=== PATIENT | female | born 1960 | race Caucasian/White ===

== ENCOUNTER → 2018-01-18 11:04 | Outpatient (CLI) | payer OTHER, SELFPAY ==
[2018-01-18 11:32] LABS: Hematocrit 44.5 % (37-47); Hemoglobin 14.1 g/dl (12.0-15.0); Mean Corp Hgb Conc 31.7 g/gl (32-36); Mean Corpuscular Hgb 29.4 pg (27.0-32.0); Mean Corpuscular Volume 92.7 fL (81-99); Mean Platelet Vol. 9.2 fl (6.2-12.0); Platelet Count 327 K/mm3 (150-450); RBC Distribution Width CV 13.2 % (11.6-14.6); RBC Distribution Width SD 44.1 fl (35.1-43.9)
[2018-01-18 11:33] LABS: Scan Indicated on CBC? Y/N NO
--- NOTE | 2018-01-18 11:51 | EKG12_ITS ---
Test Reason : PRE-OP Blood Pressure : / mmHG Vent. Rate : 064 BPM Atrial Rate : 064 BPM P-R Int : 164 ms QRS Dur : 094 ms QT Int : 400 ms P-R-T Axes : 043 066 041 degrees QTc Int : 412 ms Normal sinus rhythm Normal ECG Confirmed by GI PARRY ([id number]), production editor ROBB IZAGUIRRE ([id number]) on 01/20/2018 1:03:54 PM Referred By: Reinier Green Confirmed By:GI PARRY
[2018-01-18 12:00] LABS: Anion Gap 5 (5-15); BUN 14 mg/dL (7-18); BUN/Creat Ratio 17.1 RATIO (10-20); Calcium,Total 9.2 mg/dL (8.5-10.1); Chloride 105 mmol/L (98-107); Creatinine, Serum 0.82 mg/dL (0.55-1.02); EST Glomerular Filtration Rate 76 mL/min (>60); Est Glom Filt Rate - Afr Amer 92 mL/min (>60); Glucose 91 mg/dL (74-106); Potassium 4.2 mmol/L (3.5-5.1); Sodium Level 140 mmol/L (136-145)
== END ==
PROVIDERS: Family Provider Family Medicine; PCP Family Medicine; Visit Provider Orthopaedic Surgery
DX: Z01.810 Encounter for preprocedural cardiovascular examination (principal); Z01.818 Encounter for other preprocedural examination
CPT/HCPCS: 36415; 80048; 85027; 93005

== ENCOUNTER 2019-01-19 08:41 | Emergency (ER) | payer SELFPAY ==
[2019-01-19 08:42] VITALS: BP 185/99; PULSE 89; RESP 18; TEMP 37.1; O2SAT 98; BMI 31.6
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
[2019-01-19 09:13] LABS: Absolute Lymphocyte Count 1.66 X10^3/ul (0.83-4.51); Absolute Neutrophil Count 12.4 X10^3/uL (2.0-7.7); Basophil# 0.03 X10^3/uL; Basophil% 0.2 % (0-1); Eosinophil# 0.59 X10^3/uL; Eosinophils% 3.8 % (0-5); Hematocrit 41.1 % (37-47); Hemoglobin 12.7 g/dl (12.0-15.0); Lymphocyte # 1.66 X10^3/ul (4.0); Lymphocyte % 10.7 % (19-41); Mean Corp Hgb Conc 30.9 g/gl (32-36); Mean Corpuscular Volume 90.7 fL (81-99); Mean Platelet Vol. 8.5 fl (6.2-12.0); Monocyte# 0.88 X10^3/uL; Monocyte% 5.6 % (0-10); Neutrophil # 12.36 X10^3/uL (2.7-7.7); Neutrophil % 79.3 % (47-70); POSITIVE COUNT NO; POSITIVE DIFFERENTIAL NO; POSITIVE MORPHOLOGY NO; Platelet Count 376 K/mm3 (150-450); RBC Distribution Width CV 13.4 % (11.6-14.6); RBC Distribution Width SD 44.6 fl (35.1-43.9); Red Blood Count 4.53 M/mm3 (4.2-5.4); White Blood Count 15.6 K/mm3 (4.4-11.0)
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
[2019-01-19 09:29] LABS: ALB/GLOB Ratio 0.8 RATIO (0.9-2.4); AST(SGOT) 15 U/L (15-37); Alanine Aminotransfer ALT/SGPT 16 U/L (13-56); Albumin, Serum 3.3 g/dL (3.2-5.0); Alkaline Phosphatase 142 U/L (45-117); Anion Gap 7 (5-15); BUN 17 mg/dL (7-18); BUN/Creat Ratio 21.5 RATIO (10-20); Calcium,Total 8.8 mg/dL (8.5-10.1); Chloride 108 mmol/L (98-107); Creatinine, Serum 0.79 mg/dL (0.55-1.02); EST Glomerular Filtration Rate 79 mL/min (>60); Est Glom Filt Rate - Afr Amer 95 mL/min (>60); Estimated Creatinine Clearance 76.39 ml/min; Globulin 4.2 g/dL (2.2-4.2); Glucose 105 mg/dL (74-106); Potassium 3.7 mmol/L (3.5-5.1); Protein, Total 7.5 g/dL (6.4-8.2); Sodium Level 142 mmol/L (136-145)
--- NOTE | 2019-01-19 10:55 | NURSING ---
FACESHEET FAXED TO [facility]
[2019-01-19] MEDS: Morphine 4 MG/ML Syringe IV (11:10)
[2019-01-19 11:18] VITALS: BP 204/99; PULSE 101; RESP 22; O2SAT 96
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
[2019-01-19 15:26] VITALS: PULSE 98; RESP 18; O2SAT 98
== END 2019-01-19 15:27 | disposition home or self-care (01) ==
PROVIDERS: Emergency Provider Emergency Medicine; Family Provider Internal Medicine; PCP Internal Medicine
DX: S52.242A Displaced spiral fracture of shaft of ulna, left arm, initial encounter for closed fracture (principal); S70.12XA Contusion of left thigh, initial encounter; S00.91XA Abrasion of unspecified part of head, initial encounter; S60.511A Abrasion of right hand, initial encounter; V49.40XA Driver injured in collision with unspecified motor vehicles in traffic accident, initial encounter; Y93.9 Activity, unspecified; Y92.9 Unspecified place or not applicable; Y99.9 Unspecified external cause status
CPT/HCPCS: 29105; 70450; 72125; 73110; 73130; 73552; 80053; 85025; 96374; 99285; A4216

== ENCOUNTER 2019-01-27 05:33 | Day surgery (SDC) | payer SELFPAY ==
[2019-01-26 14:46] VITALS: BMI 31.6
[2019-01-27] VITALS (7 sets, daily range): BP systolic 168–184; BP diastolic 87–101; PULSE 78–99; RESP 16; TEMP 36.4–37; O2SAT 93–100; BMI 32.8
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
[2019-01-27] MEDS: Cefazolin 2 GM in 0.9% Normal Saline 100 ML IV (07:29)
[2019-01-27] MEDS: Bupiv/Epi 0.5% Mpf 30 ML Vial (08:44)
--- NOTE | 2019-01-27 09:09 | DCINST_ITS ---
Discharge Diet: No Restrictions Keep extremity elevated above heart level: Operative Extremity Call your doctor if you observe: Shortness of breath, Chest pain Additional Instructions: Ice and elevate operative extremity for the next 72 hours. Encourage finger range of motion and elbow range of motion. Do not lift more than 1/2 pound with operative extremity. Dressing on clean and dry. Follow-up with Dr. Marroquin in 2 weeks call with any concerns. Allergies/Adverse Reactions: Allergies neomycin Allergy (Verified 01/26/19 11:29) Swelling shellfish derived Allergy (Verified 01/26/19 11:29) Anaphylaxis Sulfa (Sulfonamide Antibiotics) Allergy (Verified 01/26/19 11:29) Anaphylaxis tetracycline [From Sumycin] Allergy (Verified 01/26/19 11:29) Swelling iodine Adverse Reaction (Verified 01/26/19 11:29) Other BLISTERS mycin Allergy (Uncoded 01/26/19 11:29) Anaphylaxis Medications to take at Discharge Ibuprofen 800 mg PO PRN PRN 01/26/19 Primary Care Physician: Shruthi Castañeda MD [Primary Care Provider] - Test Results: Test results from this visit will be discussed in further detail at your follow- up appointment, if applicable. Please Follow Up With: Frantz Marroquin DO - 2Weeks
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
== END 2019-01-27 11:52 | disposition home or self-care (01) ==
LOC: SDC 05:37 → AC 05:37
PROVIDERS: Family Provider Internal Medicine; PCP Internal Medicine; Referring Provider Orthopaedic Surgery; Visit Provider Orthopaedic Surgery
PROC: (CPT 25545; principal; 2019-01-27 07:15)
DX: S52.242A Displaced spiral fracture of shaft of ulna, left arm, initial encounter for closed fracture (principal); V49.40XA Driver injured in collision with unspecified motor vehicles in traffic accident, initial encounter; Y93.9 Activity, unspecified; Y92.9 Unspecified place or not applicable; Y99.9 Unspecified external cause status; Z78.0 Asymptomatic menopausal state; Z87.01 Personal history of pneumonia (recurrent)
CPT/HCPCS: 25545; 73100; 76000; 93005; C1713; J7120; J2405

== ENCOUNTER → 2019-03-23 15:59 | Outpatient (CLI) | payer SELFPAY ==
[2019-02-11 09:23] VITALS: BMI 32.8
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
== END ==
PROVIDERS: Family Provider Internal Medicine; PCP Internal Medicine; Referring Provider Orthopaedic Surgery; Visit Provider Orthopaedic Surgery
DX: S52.202A Unspecified fracture of shaft of left ulna, initial encounter for closed fracture (principal); X58.XXXA Exposure to other specified factors, initial encounter; Y93.9 Activity, unspecified; Y92.9 Unspecified place or not applicable; Y99.9 Unspecified external cause status
CPT/HCPCS: 73090

== ENCOUNTER 2019-04-23 09:30 | Outpatient (RCR) | payer SELFPAY ==
[2019-02-11 09:23] VITALS: BMI 32.8
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
--- NOTE | 2019-05-11 08:23 | HP.PT.NRP ---
HP - Discharge Summary (1) - Patient Information LOUISE VIVEROS was seen in my office for initial evaluation on 02/11/19. The following Plan of Care was established for this patient: Initial Frequency: 2x /Week Initial Duration: 4-6 Weeks - Anticipated Interventions Patient/Client Instruction: Educate patient on: Condition, Plan of Care, Benefits of Fitness Program For the Purpose of:: To improve health and function, To foster healthy habits, To improve decision making, To facilitate caregiver knowledge, To improve self management, To prevent re-injury, To improve ability to perform tasks related to life management, To improve tolerance to ADL's Therapeutic Exercise to Include: Strength training, Power training, Endurance training, Postural training, Flexibilty training, Passive ROM, Active ROM For the Purpose of:: To decrease pain, To decrease swelling/inflammation, To increase ROM, To improve nutrient delivery to tissue, To improve muscle performance and motor function This patient was last seen in our office 04/29/19. Pertinent comments regarding their Physical therapy will appear below: Pt. called to cancel all of the rest of her appiontments. Pt. reports she was missed informed on how the billing would be handled. Pt. was progressing very well with ROM and strengthening. Pt. will be DC at her own request. At this point I will be discontinuing this patient from physical therapy. I would be happy to see this patient again in the future if found appropriate by the physician. Thank you! Reinier Clemente, ELIZABETHT
== END 2019-04-23 19:00 | disposition home or self-care (01) ==
LOC: PT 09:30
PROVIDERS: Family Provider Internal Medicine; PCP Internal Medicine; Referring Provider Physician Assistant; Visit Provider Physician Assistant
DX: Z98.890 Other specified postprocedural states (principal)
CPT/HCPCS: 97110; 97161

== ENCOUNTER 2019-05-07 23:33 | Emergency (ER) | payer SELFPAY ==
[2019-02-11 09:23] VITALS: BMI 32.8
[2019-05-07 23:34] VITALS: BP 200/110; PULSE 97; RESP 16; TEMP 36.3; O2SAT 95; BMI 34.2
--- NOTE | 2019-05-08 01:02 | ED.RN ---
PT USING TECHNU FOR POISON PAVEL ON LEFT SIDE OF FACE. PT CONCERNED SHE HAS GOTTEN CHEMICAL IN EYE.
[2019-05-08 02:01] VITALS: BP 190/104; PULSE 85; RESP 18; O2SAT 97
[2019-05-08] MEDS: Fluorescein 1 MG STRIP 1 STRIP LEFT EYE (02:28)
[2019-05-08] MEDS: Tetracaine 0.5% Ophthalmic Bottle 1 DRP LEFT EYE (02:28)
--- NOTE | 2019-05-08 02:29 | ED.RN ---
GIL LENS APPLIED TO LEFT EYE PER DR. GARCIA VERBAL ORDER. IRRIGATED WITHM NS. PT TOLERATED WELL. WILL CONTINUE TO MONITOR.
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
--- NOTE | 2019-05-08 02:38 | ED.DEP ---
ED Disposition - Plan for ED Patient: Instructions: Corneal Abrasion Referrals: Shruthi Castañeda MD [Primary Care Provider] - Gallo Joseph MD [STAFF PHYSICIAN] -
[2019-05-08] MEDS: Triamcinolone Acetonide 40 MG/ML Vial IM (02:51)
[2019-05-08 02:57] VITALS: BP 173/87; PULSE 81; RESP 16; O2SAT 98
== END 2019-05-08 03:04 | disposition home or self-care (01) ==
PROVIDERS: Emergency Provider Emergency Medicine; Family Provider Internal Medicine; PCP Internal Medicine
DX: S05.02XA Injury of conjunctiva and corneal abrasion without foreign body, left eye, initial encounter (principal); Z77.098 Contact with and (suspected) exposure to other hazardous, chiefly nonmedicinal, chemicals; X58.XXXA Exposure to other specified factors, initial encounter; Y93.9 Activity, unspecified; Y92.9 Unspecified place or not applicable
CPT/HCPCS: 96372; 99284; J7030

== ENCOUNTER → 2020-09-12 17:18 | Outpatient (CLI) | payer MEDICARE, SELFPAY | PROVIDERS: PCP Internal Medicine; Referring Provider Internal Medicine; Visit Provider Internal Medicine | DX: U07.1 COVID-19 (principal) | CPT/HCPCS: 87635; C9803; U0003 ==

== ENCOUNTER 2020-09-13 19:25 | Inpatient (IN) | payer MEDICARE, SELFPAY ==
[2020-09-13] VITALS (8 sets, daily range): BP systolic 134–147; BP diastolic 71–83; PULSE 98–107; RESP 16–36; TEMP 36.6–37.2; O2SAT 90–94; BMI 36.9
--- NOTE | 2020-09-13 19:46 | ED.VIS.GEN ---
History of Present Illness Chief Complaint: Shortness of Breath Informant: Patient Narrative: 60-year-old female with past medical history of asthma presents with concern for fever, chills, cough over the past 1 week. Worsening over the past 2 days. Feeling very weak. Denies any chest pain, nausea, vomiting, diarrhea, abdominal pain, diaphoresis, urinary symptoms. Patient concerned that she traveled to a cabin which he owned and returned a lot of blankets with cat dander on them. Feels that this exacerbated her asthma approximately 10 to 14 days ago and now she is manifesting symptoms of shortness of breath. Past Medical History - Allergies and Home Meds Allergies/Adverse Reactions: Allergies neomycin Allergy (Verified 09/13/20 19:36) Swelling shellfish derived Allergy (Verified 09/13/20 19:36) Anaphylaxis Sulfa (Sulfonamide Antibiotics) Allergy (Verified 09/13/20 19:36) Anaphylaxis tetracycline [From Sumycin] Allergy (Verified 09/13/20 19:36) Swelling iodine Adverse Reaction (Verified 09/13/20 19:36) Other BLISTERS mycin Allergy (Uncoded 09/13/20 19:36) Anaphylaxis Prior records reviewed: Yes Past Medical History: - - HTN and Asthma Lives: With Family Smoking Status: Never smoker Alcohol: None Drugs: None Review of Systems General: Reports: Fever, Malaise. Denies: Chills, Sweats Eyes: Denies: Visual changes - bilaterally, Diplopia ENT: Denies: Rhinorrhea, Sore throat Cardiovascular: Denies: Chest pain, Palpitations Respiratory: Reports: Dyspnea, Cough. Denies: Dyspnea on exertion Gastrointestinal: Denies: Abdominal pain, Nausea, Vomiting, Diarrhea, Melena, Hematochezia Genitourinary: Denies: Dysuria, Hematuria, Frequency Musculoskeletal: Denies: Back pain, Extremity Pain Skin: Denies: Rash, Wounds Neurological: Denies: Headache, Weakness, Numbness Physical Exam Vital Signs/Narrative: Vital Signs Temp Pulse Resp BP Pulse Ox 09/13/20 19:35 98.6 F 107 H 22 H 147/79 H 93 09/13/20 19:26 98.6 F 107 H 16 147/79 H 93 Inital Vital Signs reviewed: Yes General: Well nourished, Well developed, No Acute Distress Head: Normocephalic, Atraumatic Eyes: Perrl, EOMI ENT: Moist mucous membranes, No rhinorrhea Neck: Supple, Nontender Cardiovascular: Regular rhythm, No murmurs, Tachycardia Respiratory: No distress, CTA bilaterally, Chest nontender Abdomen: Soft, Nontender, Nondistended, Normal bowel sounds Back: Nontender, Normal Inspection Extremities: Nontender, No edema Skin: Normal color, No rash Neurological: Alert, Oriented x3, Cranial nerves II-XII grossly intact, Normal Strength, Normal Sensation Psychological: Normal affect, Normal Mood Diagnostic/Tx/Re-eval Chest X-Ray - ED: 1 View, - - Bilateral infiltrates. Clinical Impression(s) from Imaging Studies Chest X-Ray 09/13/20 20:30 IMPRESSION: Findings suspicious for Covid 19 pneumonia. Clinical correlation recommended Electronically Signed: Abner Xie MD at 20:54 EST , Service support , Chest CTA 09/13/20 20:52 IMPRESSION: Diffuse bilateral mixed interstitial and alveolar infiltrates within the upper and lower lobes bilaterally. Covid 19 pneumonia not excluded. No evidence for pulmonary embolus Electronically Signed: Abner Xie MD at 22:06 EST , Service support , Laboratory Data 09/13/20 09/13/20 09/13/20 19:58 20:13 20:13 WBC 10.7 RBC 4.55 Hgb 13.3 Hct 41.7 MCV 91.6 MCH 29.2 MCHC 31.9 L RDW Std Deviation 45.7 H RDW Coeff of Cara 13.5 Plt Count 321 MPV 8.9 Immature Gran % (Auto) 1.500 H Neut % (Auto) 87.5 H Lymph % (Auto) 5.2 L Pickett % (Auto) 5.6 Eos % (Auto) 0.0 Baso % (Auto) 0.2 Absolute Neuts (auto) 9.4 H Absolute Lymphs (auto) 0.56 L Nucleated RBC % 0 Differential Comment SCANNED D-Dimer Quant (PE/DVT) 0.98 H* Sodium Potassium Chloride Carbon Dioxide Anion Gap BUN Creatinine Estim Creat Clear Calc Est GFR (MDRD) Af Amer Est GFR (MDRD) Non-Af BUN/Creatinine Ratio Glucose Lactic Acid Calcium Total Bilirubin AST ALT Alkaline Phosphatase Lactate Dehydrogenase Troponin I B-Natriuretic Peptide Total Protein Albumin Globulin Albumin/Globulin Ratio COVID-19 (MILLIE) Detected 09/13/20 09/13/20 09/13/20 20:13 20:13 20:13 WBC RBC Hgb Hct MCV MCH MCHC RDW Std Deviation RDW Coeff of Cara Plt Count MPV Immature Gran % (Auto) Neut % (Auto) Lymph % (Auto) Pickett % (Auto) Eos % (Auto) Baso % (Auto) Absolute Neuts (auto) Absolute Lymphs (auto) Nucleated RBC % Differential Comment D-Dimer Quant (PE/DVT) Sodium 135 L Potassium 3.3 L Chloride 99 Carbon Dioxide 27.0 Anion Gap 9 BUN 19 H Creatinine 0.85 Estim Creat Clear Calc 71.72 Est GFR (MDRD) Af Amer 87 Est GFR (MDRD) Non-Af 72 BUN/Creatinine Ratio 22.3 H Glucose 153 H Lactic Acid 1.0 Calcium 8.8 Total Bilirubin 0.40 AST 42 H ALT 56 Alkaline Phosphatase 112 Lactate Dehydrogenase 311 H Troponin I < 0.015 B-Natriuretic Peptide 17.9 Total Protein 7.9 Albumin 2.8 L Globulin 5.1 H Albumin/Globulin Ratio 0.5 L COVID-19 (MILLIE) - Medical Decision Making Patient hypoxemic upon arrival. Placed on 5 L nasal cannula. Chest x-ray concerning for Covid pneumonia. Patient has an elevated D-dimer. Was given 6 mg of Decadron. CTA shows no evidence of pulmonary embolism. Coronavirus confirmed. Patient 85% on 6 L. Will be placed on high flow nasal cannula. Patient admitted to the hospital for further treatment and evaluation. Impression: 1. COVID pneumonia 2. Hypoxemia ED Disposition - Plan for ED Patient: Disposition: Acute Care Hospital [facility]
[2020-09-13 20:27] LABS: Absolute Lymphocyte Count 0.56 X10^3/uL (0.83-4.51); Absolute Neutrophil Count 9.4 X10^3/uL (2.0-7.7); Basophil# 0.02 X10^3/uL; Basophil% 0.2 % (0-1); Hematocrit 41.7 % (37-47); Hemoglobin 13.3 g/dL (12.0-15.0); Lymphocyte # 0.56 X10^3/ul (4.0); Lymphocyte % 5.2 % (19-41); Mean Corp Hgb Conc 31.9 g/dL (32-36); Mean Corpuscular Hgb 29.2 pg (27.0-32.0); Mean Corpuscular Volume 91.6 fL (81-99); Mean Platelet Vol. 8.9 fl (6.2-12.0); Monocyte% 5.6 % (0-10); NRBC Flagged by Analyzer 0 % (0-5); Neutrophil # 9.36 X10^3/uL (2.7-7.7); Neutrophil % 87.5 % (47-70); POSITIVE DIFFERENTIAL YES; Platelet Count 321 K/mm3 (150-450); RBC Distribution Width CV 13.5 % (11.6-14.6); RBC Distribution Width SD 45.7 fl (35.1-43.9); Red Blood Count 4.55 M/mm3 (4.2-5.4); White Blood Count 10.7 K/mm3 (4.4-11.0)
--- NOTE | 2020-09-13 20:30 | RAD_ITS ---
STUDY: X-RAY CHEST REASON FOR EXAM: Female, 60 years old. C/O INCREASED SOB, PER EMS 82 ON RA, CURRENTLY ON Z PACK AND AMOX FOR 1 WEEK, COVID TEST PENDING TECHNIQUE: AP portable COMPARISON: None. FINDINGS: Interstitial thickening noted within both lower lobes in association with increased parenchymal density suspicious for Covid 19 pneumonia.. There is no demonstrated pleural abnormality. Normal size heart. Normal mediastinum and yulia. Normal visualized pulmonary arteries. Normal visualized aortic arch and descending thoracic aorta. Dorsal spine demonstrates scoliosis and degenerative change. Normal visualized ribs, clavicles, and shoulders. There is no demonstrated abnormality of the visualized soft tissue structures of the upper abdomen. RAD/Chest 1 View (Portable) IMPRESSION: Findings suspicious for Covid 19 pneumonia. Clinical correlation recommended Electronically Signed: Abner Xie MD at 20:54 EST , Service support ,
[2020-09-13 20:40] LABS: Differential Indicated SCAN CRITERIA MET
[2020-09-13 20:42] LABS: ALB/GLOB Ratio 0.5 RATIO (0.9-2.4); AST(SGOT) 42 U/L (15-37); Alanine Aminotransfer ALT/SGPT 56 U/L (13-56); Albumin, Serum 2.8 g/dL (3.2-5.0); Alkaline Phosphatase 112 U/L (45-117); Anion Gap 9 (5-15); BUN 19 mg/dL (7-18); BUN/Creat Ratio 22.3 RATIO (10-20); Calcium,Total 8.8 mg/dL (8.5-10.1); Chloride 99 mmol/L (98-107); Creatinine, Serum 0.85 mg/dL (0.55-1.02); EST Glomerular Filtration Rate 72 mL/min (>60); Est Glom Filt Rate - Afr Amer 87 mL/min (>60); Estimated Creatinine Clearance 71.72 ml/min; Globulin 5.1 g/dL (2.2-4.2); Glucose 153 mg/dL (74-106); LDH 311 U/L (84-246); Potassium 3.3 mmol/L (3.5-5.1); Protein, Total 7.9 g/dL (6.4-8.2); Sodium Level 135 mmol/L (136-145)
[2020-09-13 20:51] LABS: D-Dimer Quantitative (DVT/PE) 0.98 FEU/ug/m (0.27-0.49)
--- NOTE | 2020-09-13 20:52 | CT_ITS ---
STUDY: CTA CHEST REASON FOR EXAM: Female, 60 years old. FEVER,CHILLS,COUGH AND SOB X 1 WEEK,? COVID TEST IS PENDING -- HX:GERD,HTN,ASTHMA RADIATION DOSAGE (If Supplied By Facility): CTDIvol = ( 13.84 ) mGy, DLP = ( 539.19 ) mGycm TECHNIQUE: The examination was performed with the intravenous administration of IV 100mL Isovue-370. Post-processing of the angiographic images was performed, with multiplanar reformation and 3D reconstruction. Individualized dose optimization techniques were used for this CT. COMPARISON: None. FINDINGS: Normal enhancement of the main pulmonary artery and right and left pulmonary arteries. Normal enhancement of the bilateral peripheral pulmonary arteries. There is no demonstrated pulmonary embolism. Normal thoracic aorta and visualized great vessels. There is no demonstrated aortic dissection. Normal heart and pericardium. Normal mediastinum. Normal hilar regions. Normal visualized trachea and bronchi. The lungs are well expanded. There are mixed interstitial alveolar infiltrates throughout both lower lobes and to lesser extent in the upper lobes.. Normal pleura. Normal chest wall structures. Dorsal spine demonstrates degenerative changes.. Nonspecific fatty infiltration of liver.. CT/CTA Chest W/WO Contrast IMPRESSION: Diffuse bilateral mixed interstitial and alveolar infiltrates within the upper and lower lobes bilaterally. Covid 19 pneumonia not excluded. No evidence for pulmonary embolus Electronically Signed: Abner Xie MD at 22:06 EST , Service support ,
[2020-09-13 21:05] LABS: Differential Comment SCANNED
[2020-09-13 21:20] LABS: BNP,B-Type NATRIURETIC PEPTIDE 17.9 pg/mL (0-100)
--- NOTE | 2020-09-13 21:42 | ED.RN ---
METAL CAN INSPECTOR STATED THAT PT TURNED RED AND BEGAN COUGHING ALOT DURING CT AFTER GIVING IODINE. DR MERRITT NOTIFIED, WILL CONTINUE TO MONITOR.
[2020-09-13] MEDS: dexAMETHasone 4 MG/ML Vial 6 MG IV (22:10)
--- NOTE | 2020-09-13 22:53 | HP.PCM_ITS ---
Problem List (1) SARS (severe acute respiratory syndrome) Status: Acute (2) COVID-19 Status: Acute (3) Asthma Status: Chronic History of Present Illness Date of Admission: 09/14/20 Chief Complaint: sob The patient is a 60 year old F with a significant history of asthma who presents with 1 week history of progressively worsening shortness of breath. Associated with her symptoms is fever, chills, and cough. She reported home temperature of 101 Fahrenheit. Patient's is Z-Oscar and Augmentin as well as steroids. Initially her symptoms was attributed to asthma exacerbation secondary to patient traveling on a cabin and contact with cat dander. She had a Covid test outpatient and the results is pending. At the emergency department the patient was found to have positive Covid-19. Past Medical History Past Medical History (Chronic Problems): Chronic Problems (Last Updated 09/14/20 @ 01:[address] Frantz Dupont MD) Asthma (Chronic) Medical History: Medical History (Last Reviewed 09/14/20 @ 05:[address] Frantz Dupont MD) Asthma J45.909 Allergies neomycin Allergy (Verified 09/13/20 19:36) Swelling shellfish derived Allergy (Verified 09/13/20 19:36) Anaphylaxis Sulfa (Sulfonamide Antibiotics) Allergy (Verified 09/13/20 19:36) Anaphylaxis tetracycline [From Sumycin] Allergy (Verified 09/13/20 19:36) Swelling iodine Adverse Reaction (Verified 09/13/20 19:36) Other BLISTERS mycin Allergy (Uncoded 09/13/20 19:36) Anaphylaxis Home Medications: Ambulatory Orders Medication Instructions Recorded Amoxicillin/Potassium Clav 1 ea PO BID 09/13/20 [Amox-Clav 875-125 mg Tablet] Azithromycin 250 mg PO DAILY 09/13/20 Lisinopril [Prinivil] 10 mg PO DAILY 09/13/20 Prednisone 10 mg PO DAILY 09/13/20 Surgical History: - - Knee surgery; hand surgery. Lives: With Family Smoking Status: Never smoker Alcohol: None Drugs: None - *Family History Maternal History Items: Cancer - Breast Paternal History Items: Heart Disease Review of Systems Constitutional: Reports: Chills, Fever, Malaise. Denies: Weight Change HEENT: Denies: Head Aches, Sinus Congestion, Sinus Drainage Cardiovascular: Denies: Chest Pain, Palpitations Respiratory: Reports: Cough, Shortness of Breath Gastrointestinal: Denies: Abdominal Pain, Nausea, Vomiting Genitourinary: Denies: Dysuria Musculoskeletal: Denies: Joint Pain, Joint Tenderness Skin: Denies: Rash, Wounds Neurological: Denies: Numbness, Tingling, Focal weakness Psychiatric: Denies: Anxiety, Depression, Homicidal Ideations, Suicidal Ideations Hematologic/ Lymphatic: Denies: Easy Bruising, Easy Bleeding VTE Information - Inpt Only VTE Present on Admission: No VTE Mechan Device Prophylaxis: None VTE Pharm Prophylaxis ordered?: Yes Patient Problems: Active and Suspected Problems (Last Updated 09/14/20 @ 01:[address] Frantz Dupont MD) SARS (severe acute respiratory syndrome) (Acute) COVID-19 (Acute) - Physical Exam Vitals/I&O's: Vital Signs Temp Pulse Resp BP Pulse Ox 98.1 F 99 25 H 141/83 H 93 09/13/20 22:00 09/13/20 22:00 09/13/20 22:00 09/13/20 22:00 09/13/20 22:00 Oxygen Flow Rate (L/min) 4 Oxygen Delivery Method Nasal Cannula Weight: 113.398 kg Body Mass Index (BMI) 36.9 General: Alert, Oriented x3, Cooperative HEENT: Atraumatic, PERRLA, EOMI, Normocephalic Neck: Supple, No JVD, Negative Carotid Bruits Lungs: Clear to auscultation, Normal air movement, Tachypneic, - - Conversational dyspnea Cardiovascular: Regular rate, No murmurs Abdomen: Bowel Sounds Present, Soft, Non Tender Extremities: No edema, Capillary Refill Less than 3 Seconds Skin: No rashes, No breakdown Musculoskeletal: No Tenderness to Palpation of Joints or Extremities Neurological: Cranial nerves II-XII grossly intact Psych/Mental Status: Normal Affect, Appropriate Laboratory Results 09/13/20 19:58: COVID-19 (MILLIE) Detected 09/13/20 20:13: WBC 10.7, RBC 4.55, Hgb 13.3, Hct 41.7, MCV 91.6, MCH 29.2, MCHC 31.9 L, RDW Std Deviation 45.7 H, RDW Coeff of Cara 13.5, Plt Count 321, MPV 8.9, Immature Gran % (Auto) 1.500 H, Neut % (Auto) 87.5 H, Lymph % (Auto) 5.2 L, [place] % (Auto) 5.6, Eos % (Auto) 0.0, Baso % (Auto) 0.2, Absolute Neuts (auto) 9.4 H, Absolute Lymphs (auto) 0.56 L, Nucleated RBC % 0, Differential Comment SCANNED 09/13/20 20:13: D-Dimer Quant (PE/DVT) 0.98 H* 09/13/20 20:13: Sodium 135 L, Potassium 3.3 L, Chloride 99, Carbon Dioxide 27.0, Anion Gap 9, BUN 19 H, Creatinine 0.85, Estim Creat Clear Calc 71.72, Est GFR (MDRD) Af Amer 87, Est GFR (MDRD) Non-Af 72, BUN/Creatinine Ratio 22.3 H, Glucose 153 H, Calcium 8.8, Total Bilirubin 0.40, AST 42 H, ALT 56, Alkaline Phosphatase 112, Lactate Dehydrogenase 311 H, Troponin I < 0.015, Total Protein 7.9, Albumin 2.8 L, Globulin 5.1 H, Albumin/Globulin Ratio 0.5 L 09/13/20 20:13: Lactic Acid 1.0 09/13/20 20:13: B-Natriuretic Peptide 17.9 Current Medications Iopamidol (Contrast Allergy Safety Check) 0 ml IV X1 CAT Assessment/Plan All Active Problems (Last Updated 09/14/20 @ 01:[address] Frantz Dupont MD) SARS (severe acute respiratory syndrome) (Acute) COVID-19 (Acute) Acute hypoxemic respiratory insufficiency secondary to SARS COVID-19 infection. Patient required supplemental oxygen. Chest x-ray interpreted by radiologist and actual chest x-ray image interpreted by myself: Findings suspicious for COVID-19 pneumonia. Dimer was elevated. Chest CTA did not show any embolus. Chest CTA was remarkable for diffuse bilateral mixed interstitial and alveolar infiltrates within the upper and lower lobes bilaterally. COVID-19 was positive. Patient has been on a course of antibiotics but has not completed the course. We will get a procalcitonin. Stop antibiotics at this time. Received dexamethasone 6 mg IV at emergency department. Dexamethasone 6 mg p.o. continued. Infectious disease consult and pulmonology consult. Tylenol for fever and Mucinex for cough ordered. Hypokalemia Replaced at the emergency department Trend BMP. DVT Prophylaxis Subcutaneous Lovenox. Inpatient E&M: 16338 Init Hosp L3
[2020-09-14] VITALS (21 sets, daily range): BP systolic 109–163; BP diastolic 70–91; PULSE 86–113; RESP 18–42; TEMP 35.9–38.1; O2SAT 28–94; BMI 36.6; BMI 36.7
[2020-09-14] MEDS: 0.9% Saline Lock 10 ML Syringe IV ×3 (03:04→14:47)
[2020-09-14] MEDS: guaiFENesin 10 ML UDC (200MG/10ML) PO ×3 (05:57→20:23)
[2020-09-14 06:12] LABS: Absolute Lymphocyte Count 0.64 X10^3/uL (0.83-4.51); Absolute Neutrophil Count 11.1 X10^3/uL (2.0-7.7); Basophil# 0.03 X10^3/uL; Basophil% 0.2 % (0-1); Hematocrit 40.8 % (37-47); Hemoglobin 12.9 g/dL (12.0-15.0); Lymphocyte # 0.64 X10^3/ul (4.0); Mean Corp Hgb Conc 31.6 g/dL (32-36); Mean Corpuscular Hgb 28.9 pg (27.0-32.0); Mean Corpuscular Volume 91.3 fL (81-99); Mean Platelet Vol. 9.3 fl (6.2-12.0); Monocyte% 6.3 % (0-10); NRBC Flagged by Analyzer 0 % (0-5); Neutrophil # 11.08 X10^3/uL (2.7-7.7); Neutrophil % 87.2 % (47-70); Platelet Count 327 K/mm3 (150-450); RBC Distribution Width CV 13.5 % (11.6-14.6); RBC Distribution Width SD 45.7 fl (35.1-43.9); Red Blood Count 4.47 M/mm3 (4.2-5.4); White Blood Count 12.7 K/mm3 (4.4-11.0)
[2020-09-14 06:49] LABS: Anion Gap 10 (5-15); BUN 21 mg/dL (7-18); BUN/Creat Ratio 28.3 RATIO (10-20); Calcium,Total 8.3 mg/dL (8.5-10.1); Chloride 98 mmol/L (98-107); Creatinine, Serum 0.74 mg/dL (0.55-1.02); EST Glomerular Filtration Rate 84 mL/min (>60); Est Glom Filt Rate - Afr Amer 102 mL/min (>60); Estimated Creatinine Clearance 82.38 ml/min; Glucose 125 mg/dL (74-106); Potassium 4.1 mmol/L (3.5-5.1); Sodium Level 134 mmol/L (136-145)
[2020-09-14 08:23] LABS: Procalcitonin < 0.04 ng/mL (0.00-0.09)
[2020-09-14] MEDS: Lisinopril 10 MG Tablet PO (08:57)
[2020-09-14] MEDS: dexAMETHasone 4 MG Tablet 6 MG PO (08:57)
[2020-09-14] MEDS: Enoxaparin 30 MG/0.3 ML Syringe SC ×2 (08:57→21:39)
--- NOTE | 2020-09-14 10:43 | NURSING ---
pt up ambulating to br
--- NOTE | 2020-09-14 11:12 | CASEMGMT ---
Social Work SW placed call to pt room and talked to pt regarding self pay. Pt confirms that she does not have insurance and that she is usually eligible for the hospital HCAP program. PFS noted that they gave pt an application. SW inquired about prescription medications and pt states she is able to pay goddard for them without difficulty and that she has a PCP that she has no difficulty paying for. Pt denies any financial issues at this time and denies need for resources. GIGI Hemphill
--- NOTE | 2020-09-14 11:40 | CASEMGMT ---
RN CM called patient in room for initial transition planning/care coordination assessment. RN CLAUDIA introduced self and role at [facility]. Patient is alert and oriented. Patient willing to participate in assessment and is able to answer all questions appropriately. Care providers, pharmacy, and demographics verified. Patient wishes to discharge home, denies need for home health at this time. Patient states she has no further needs or concerns at this time. CM to follow for discharge planning needs that may arise. PCP: Maddy Specialists: None Preferred Pharmacy: [facility] Insurance: none Prescription Benefit: none Living Will/HPOA: none LNOK: Friend Living Arrangements: Patient lives alone in a 3 story home with bed and bath on first floor. 7 steps and railing to enter the home. Patient states she is independent at home. Transportation: self, friend DME/HHC: Patient states she has cane and grab bars at home. Patient would like [employer] if she would need home oxygen at discharge. Disposition Plan: Patient to discharge home with follow-up plans in place. Krystle GOODMAN, RN, CM
--- NOTE | 2020-09-14 13:08 | PN_ITS ---
Patient Problems: Active and Suspected Problems (Last Reviewed 09/14/20 @ 05:[address] Frantz Dupont MD) SARS (severe acute respiratory syndrome) (Acute) COVID-19 (Acute) Subjective: Doing well, no issues overnight. Feels better now than she did when she came in Vitals/I&O's: Vital Signs Temp Pulse Resp BP Pulse Ox 97.5 F L 98 36 H 124/82 H 92 09/14/20 12:45 09/14/20 12:45 09/14/20 12:45 09/14/20 12:45 09/14/20 12:45 Oxygen Flow Rate (L/min) 6 Oxygen Delivery Method Nasal Cannula Weight: 248 lb 7.375 oz Body Mass Index (BMI) 36.6 Intake and Output for Last 24 Hours 09/12/20 09/13/20 09/14/20 23:59 23:59 23:59 Intake Total 1080 / 1080 Balance 1080 / 1080 General: Alert, Oriented x3, Cooperative, No apparent distress HEENT: Atraumatic, PERRLA, EOMI, Normocephalic Oral: Moist Mucosa Neck: Supple, No JVD Lungs: Clear to auscultation, Normal air movement, No rhonchi, No wheeze, No rales Cardiovascular: Regular rate, Regular Rhythm, Normal S1, Normal S2, No murmurs Abdomen: Soft, Non Tender, Non-Distended, No Hepato-splenomegaly Extremities: No edema, Capillary Refill Less than 3 Seconds Skin: No rashes, No breakdown Neurological: Neuro grossly intact, Sensory exam intact to light touch and pain Psych/Mental Status: Normal Affect, Appropriate Microbiology Past 72 Hours 09/13/20 19:58 Mucosa - Nose Respiratory Panel (PCR) - Final Laboratory Results 09/13/20 19:58: COVID-19 (MILLIE) Detected 09/13/20 20:13: WBC 10.7, RBC 4.55, Hgb 13.3, Hct 41.7, MCV 91.6, MCH 29.2, MCHC 31.9 L, RDW Std Deviation 45.7 H, RDW Coeff of Cara 13.5, Plt Count 321, MPV 8.9, Immature Gran % (Auto) 1.500 H, Neut % (Auto) 87.5 H, Lymph % (Auto) 5.2 L, Citrus % (Auto) 5.6, Eos % (Auto) 0.0, Baso % (Auto) 0.2, Absolute Neuts (auto) 9.4 H, Absolute Lymphs (auto) 0.56 L, Nucleated RBC % 0, Differential Comment SCANNED 09/13/20 20:13: D-Dimer Quant (PE/DVT) 0.98 H* 09/13/20 20:13: Sodium 135 L, Potassium 3.3 L, Chloride 99, Carbon Dioxide 27.0, Anion Gap 9, BUN 19 H, Creatinine 0.85, Estim Creat Clear Calc 71.72, Est GFR (MDRD) Af Amer 87, Est GFR (MDRD) Non-Af 72, BUN/Creatinine Ratio 22.3 H, Glucose 153 H, Calcium 8.8, Total Bilirubin 0.40, AST 42 H, ALT 56, Alkaline Phosphatase 112, Lactate Dehydrogenase 311 H, Troponin I < 0.015, Total Protein 7.9, Albumin 2.8 L, Globulin 5.1 H, Albumin/Globulin Ratio 0.5 L 09/13/20 20:13: Lactic Acid 1.0 09/13/20 20:13: B-Natriuretic Peptide 17.9 09/14/20 04:48: Procalcitonin < 0.04 09/14/20 04:48: WBC 12.7 H, RBC 4.47, Hgb 12.9, Hct 40.8, MCV 91.3, MCH 28.9, MCHC 31.6 L, RDW Std Deviation 45.7 H, RDW Coeff of Cara 13.5, Plt Count 327, MPV 9.3, Immature Gran % (Auto) 1.300 H, Neut % (Auto) 87.2 H, Lymph % (Auto) 5.0 L, Citrus % (Auto) 6.3, Eos % (Auto) 0.0, Baso % (Auto) 0.2, Absolute Neuts (auto) 11.1 H, Absolute Lymphs (auto) 0.64 L, Nucleated RBC % 0 09/14/20 04:48: Sodium 134 L, Potassium 4.1, Chloride 98, Carbon Dioxide 26.0, Anion Gap 10, BUN 21 H, Creatinine 0.74, Estim Creat Clear Calc 82.38, Est GFR (MDRD) Af Amer 102, Est GFR (MDRD) Non-Af 84, BUN/Creatinine Ratio 28.3 H, Glucose 125 H, Calcium 8.3 L Current Medications Acetaminophen (Acetaminophen 325 Mg Tablet) 650 mg PO Q6H PRN PRN PRN Reason: Pain Score 1-10/Temp > 100.7 F Albuterol Sulfate (Albuterol Ih 8.5 Gm (Proair) Inhaler (200 Puffs)) 2 puff INHALATION Q4H PRN PRN PRN Reason: sob/wheezing Last Admin: 09/14/20 05:57 Dose: 2 puff Documented by: Dexamethasone (Dexamethasone 4 Mg Tablet) 6 mg PO DAILY@0800 [facility] Last Admin: 09/14/20 08:57 Dose: 6 mg Documented by: Enoxaparin Sodium (Enoxaparin 30 Mg/0.3 Ml Syringe) 30 mg SC BID [facility] Last Admin: 09/14/20 08:57 Dose: 30 mg Documented by: Guaifenesin (Guaifenesin 10 Ml Udc (200mg/10ml)) 10 ml PO Q4H PRN PRN PRN Reason: COUGH Last Admin: 09/14/20 11:02 Dose: 10 ml Documented by: Remdesivir 100 mg/ Sodium (Chloride) 250 mls @ 125 mls/hr IV DAILY [facility]; Protocol Stop: 09/18/20 11:59 Remdesivir 200 mg/ Sodium (Chloride) 250 mls @ 125 mls/hr IV X1 ONE; Protocol Stop: 09/14/20 15:02 Lisinopril (Lisinopril 10 Mg Tablet) 10 mg PO DAILY [facility] Last Admin: 09/14/20 08:57 Dose: 10 mg Documented by: Melatonin (Melatonin 3 Mg Tablet) 3 mg PO QHS PRN PRN PRN Reason: INSOMNIA Nutritional Formula (Lactose Free) (Ensure Enlive 120 Ml Liquid) 120 ml PO 4X/DAY [facility] Last Admin: 09/14/20 08:57 Dose: 120 ml Documented by: Ondansetron HCl (Ondansetron 4 Mg/2 Ml Vial) 4 mg IV Q8H PRN PRN PRN Reason: NAUSEA/VOMITING Sodium Chloride (0.9% Saline Lock 10 Ml Syringe) 10 - 40 ml IV UD PRN PRN Reason: SALINE FLUSH Last Admin: 09/14/20 06:00 Dose: 10 ml Documented by: STROKE Vital Signs/Narrative: Vital Signs Temp Pulse Resp BP Pulse Ox 09/14/20 12:45 97.5 F L 98 36 H 124/82 H 92 09/14/20 10:43 40 H 82 09/14/20 10:40 97.8 F 107 H 40 H 127/90 H 90 Medical Necessity - Tobacco Use Smoking Status: Never smoker Assessment/Plan All Active Problems (Last Reviewed 09/14/20 @ 05:[address] Frantz Dupont MD) SARS (severe acute respiratory syndrome) (Acute) COVID-19 (Acute) 1. Acute hypoxic respiratory failure can [place] to COVID-19 pneumonia -CTA of her chest was negative for PEs -Given the positive Covid test, no need for antibiotics at this time -Continue with Decadron -Appreciate pulmonology and ID assistance -Continue with remdesivir 2. HTN -Blood pressure stable, continue with lisinopril DVT: Lovenox Inpatient E&M: 56477 Subs Hosp L2
--- NOTE | 2020-09-14 16:10 | CON.PCM_ITS ---
Problem List (1) COVID-19 Status: Acute Reason for Consult: covid Consulted by: Dr. Escobar History of Present Illness: The patient is a 60 year old F developed symptoms 09/04/20 with aches, cough, diarrhea, fatigue, chills. No change in taste or smell. 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 Lives alone. Admitted on dex and O2. Feeling a little better today. Full ROS performed and neg except as noted above. - Medical History Past Medical History (Chronic Problems): Chronic Problems (Last Reviewed 09/14/20 @ 05:[address] Frantz Dupont MD) Asthma (Chronic) Allergies/Adverse Reactions: Allergies neomycin Allergy (Verified 09/13/20 19:36) Swelling shellfish derived Allergy (Verified 09/13/20 19:36) Anaphylaxis Sulfa (Sulfonamide Antibiotics) Allergy (Verified 09/13/20 19:36) Anaphylaxis tetracycline [From Sumycin] Allergy (Verified 09/13/20 19:36) Swelling iodine Adverse Reaction (Verified 09/13/20 19:36) Other BLISTERS mycin Allergy (Uncoded 09/13/20 19:36) Anaphylaxis Home Medications: Ambulatory Orders Medication Instructions Recorded Amoxicillin/Potassium Clav 1 ea PO BID 09/13/20 [Amox-Clav 875-125 mg Tablet] Azithromycin 250 mg PO DAILY 09/13/20 Lisinopril [Prinivil] 10 mg PO DAILY 09/13/20 Prednisone 10 mg PO DAILY 09/13/20 - Social History Tobacco Use: non-smoker Vital Signs Temp Pulse Resp BP Pulse Ox 97.0 F L 102 H 42 H 135/74 H 89 09/14/20 14:39 09/14/20 14:39 09/14/20 14:39 09/14/20 14:39 09/14/20 14:39 Oxygen Flow Rate (L/min) 6 Oxygen Delivery Method Nasal Cannula Weight: 112.7 kg Body Mass Index (BMI) 36.6 Microbiology Past 72 Hours 09/13/20 19:58 Respiratory Panel (PCR) - Final Mucosa - Nose Laboratory Tests Past 24 Hrs 09/13/20 09/13/20 09/13/20 19:58 20:13 20:13 WBC 10.7 RBC 4.55 Hgb 13.3 Hct 41.7 MCV 91.6 MCH 29.2 MCHC 31.9 L RDW Std Deviation 45.7 H RDW Coeff of Cara 13.5 Plt Count 321 MPV 8.9 Immature Gran % (Auto) 1.500 H Neut % (Auto) 87.5 H Lymph % (Auto) 5.2 L [place] % (Auto) 5.6 Eos % (Auto) 0.0 Baso % (Auto) 0.2 Absolute Neuts (auto) 9.4 H Absolute Lymphs (auto) 0.56 L Nucleated RBC % 0 Differential Comment SCANNED D-Dimer Quant (PE/DVT) 0.98 H* Sodium Potassium Chloride Carbon Dioxide Anion Gap BUN Creatinine Estim Creat Clear Calc Est GFR (MDRD) Af Amer Est GFR (MDRD) Non-Af BUN/Creatinine Ratio Glucose Lactic Acid Calcium Total Bilirubin AST ALT Alkaline Phosphatase Lactate Dehydrogenase Troponin I B-Natriuretic Peptide Total Protein Albumin Globulin Albumin/Globulin Ratio Procalcitonin COVID-19 (MILLIE) Detected Blood Type 09/13/20 09/13/20 09/13/20 20:13 20:13 20:13 WBC RBC Hgb Hct MCV MCH MCHC RDW Std Deviation RDW Coeff of Cara Plt Count MPV Immature Gran % (Auto) Neut % (Auto) Lymph % (Auto) [place] % (Auto) Eos % (Auto) Baso % (Auto) Absolute Neuts (auto) Absolute Lymphs (auto) Nucleated RBC % Differential Comment D-Dimer Quant (PE/DVT) Sodium 135 L Potassium 3.3 L Chloride 99 Carbon Dioxide 27.0 Anion Gap 9 BUN 19 H Creatinine 0.85 Estim Creat Clear Calc 71.72 Est GFR (MDRD) Af Amer 87 Est GFR (MDRD) Non-Af 72 BUN/Creatinine Ratio 22.3 H Glucose 153 H Lactic Acid 1.0 Calcium 8.8 Total Bilirubin 0.40 AST 42 H ALT 56 Alkaline Phosphatase 112 Lactate Dehydrogenase 311 H Troponin I < 0.015 B-Natriuretic Peptide 17.9 Total Protein 7.9 Albumin 2.8 L Globulin 5.1 H Albumin/Globulin Ratio 0.5 L Procalcitonin COVID-19 (MILLIE) Blood Type 09/14/20 09/14/20 09/14/20 04:48 04:48 04:48 WBC 12.7 H RBC 4.47 Hgb 12.9 Hct 40.8 MCV 91.3 MCH 28.9 MCHC 31.6 L RDW Std Deviation 45.7 H RDW Coeff of Cara 13.5 Plt Count 327 MPV 9.3 Immature Gran % (Auto) 1.300 H Neut % (Auto) 87.2 H Lymph % (Auto) 5.0 L [place] % (Auto) 6.3 Eos % (Auto) 0.0 Baso % (Auto) 0.2 Absolute Neuts (auto) 11.1 H Absolute Lymphs (auto) 0.64 L Nucleated RBC % 0 Differential Comment D-Dimer Quant (PE/DVT) Sodium 134 L Potassium 4.1 Chloride 98 Carbon Dioxide 26.0 Anion Gap 10 BUN 21 H Creatinine 0.74 Estim Creat Clear Calc 82.38 Est GFR (MDRD) Af Amer 102 Est GFR (MDRD) Non-Af 84 BUN/Creatinine Ratio 28.3 H Glucose 125 H Lactic Acid Calcium 8.3 L Total Bilirubin AST ALT Alkaline Phosphatase Lactate Dehydrogenase Troponin I B-Natriuretic Peptide Total Protein Albumin Globulin Albumin/Globulin Ratio Procalcitonin < 0.04 COVID-19 (MILLIE) Blood Type 09/14/20 14:34 WBC RBC Hgb Hct MCV MCH MCHC RDW Std Deviation RDW Coeff of Cara Plt Count MPV Immature Gran % (Auto) Neut % (Auto) Lymph % (Auto) [place] % (Auto) Eos % (Auto) Baso % (Auto) Absolute Neuts (auto) Absolute Lymphs (auto) Nucleated RBC % Differential Comment D-Dimer Quant (PE/DVT) Sodium Potassium Chloride Carbon Dioxide Anion Gap BUN Creatinine Estim Creat Clear Calc Est GFR (MDRD) Af Amer Est GFR (MDRD) Non-Af BUN/Creatinine Ratio Glucose Lactic Acid Calcium Total Bilirubin AST ALT Alkaline Phosphatase Lactate Dehydrogenase Troponin I B-Natriuretic Peptide Total Protein Albumin Globulin Albumin/Globulin Ratio Procalcitonin COVID-19 (MILLIE) Blood Type Pending - Other Studies Radiology: [] reviewed Other Studies: [] Route of nutrition/ use of supplements: [] Nutritional Intake: [] IV Site: [] Massey Catheter: [] - Physical Exam General: Alert, Oriented x3, Cooperative, No apparent distress HEENT: Atraumatic, PERRLA, EOMI Neck: Supple, No Nodes Lungs: Diminished Cardiovascular: Regular rate, Regular Rhythm Abdomen: Soft, Non Tender, Non-Distended Extremities: No edema Skin: No rashes IV Site: Peripheral, without redness Musculoskeletal: No Tenderness to Palpation of Joints or Extremities Neurological: Cranial nerves II-XII grossly intact - Assessment/Plan Antibiotics: [] Assessment/Plan: [] Active and Suspected Problems (Last Reviewed 09/14/20 @ 05:[address] Frantz Dupont MD) SARS (severe acute respiratory syndrome) (Acute) COVID-19 (Acute) covid with hypoxia - on dex, lovenox 30mg bid. On 6L O2. Will start remdesivir. Reviewed EUA and discussed risks and benefits of convalescent plasma, pt consents to treatment, will order. Will follow, thank you
--- NOTE | 2020-09-14 16:46 | CON.PCM_ITS ---
Problem List (1) SARS (severe acute respiratory syndrome) Status: Acute (2) COVID-19 Status: Acute (3) Asthma Status: Chronic Qualifiers: Asthma severity: mild Asthma persistence: intermittent Asthma complication type: with acute exacerbation Qualified Code(s): J45.21 - Mild intermittent asthma with (acute) exacerbation Reason for Consult Date of Consultation: 09/14/20 Reason for Consultation: COVID-19 History of Present Illness: The patient is a 60 year old F with past medical history listed below, who presented [facility] 09/13/2020 secondary to progressive fever, chills, cough and shortness of breath. Patient felt very weak and feels that this has significantly worsened over the last 2 days. Patient had denied any chest pain or GI symptoms such as nausea, vomiting or diarrhea. No abdominal pain has been reported. 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 Patient did report that approximately 10 to 14 days ago she started to have some tightening in the chest that she associated with transporting a lot of blankets from a cabin back home. Patient states that this was transient and did respond to albuterol. While in the ER, patient had a chest x-ray showing bilateral infiltrates. Patient had a slightly elevated D-dimer at 0.98, so this was followed by CTA showing diffuse bilateral interstitial and alveolar infiltrates, but no pulmonary emboli. Laboratory work-up showed a slight leukocytosis at 10.7, hypokalemia at 3.3, but normal renal function and liver function. Troponin was negative, and lactate and BNP were within normal limits. However, patient did require 6 L nasal cannula to maintain saturations. Patient was admitted to the [facility] floor for further evaluation. Since being admitted, patient states that she does feel better while on supplemental oxygen. Patient denies any current GI complaints. Patient does believe her chest tightness is improved on oxygen. Patient reports that she is never been formally diagnosed with asthma, but does have bronchitis every fall and does respond to prednisone therapy. Patient states she has had some pulmonary function test in the past at the [facility], but feels that this is close to asthma. Patient does not use a maintenance inhaler typically. Patient has not required supplemental oxygen previously. Review of systems otherwise negative from a constitutional, HEENT, respiratory, cardiovascular, GI, genitourinary, musculoskeletal, skin, neurologic, psychiatric and hematologic system unless stated above. Past Medical History Past Medical History (Chronic Problems): Chronic Problems (Last Reviewed 09/14/20 @ 05:[address] Frantz Dupont MD) Asthma (Chronic) Medical History: Medical History (Last Reviewed 09/14/20 @ 05:[address] Frantz Dupont MD) Asthma J45.909 Allergies neomycin Allergy (Verified 09/13/20 19:36) Swelling shellfish derived Allergy (Verified 09/13/20 19:36) Anaphylaxis Sulfa (Sulfonamide Antibiotics) Allergy (Verified 09/13/20 19:36) Anaphylaxis tetracycline [From Sumycin] Allergy (Verified 09/13/20 19:36) Swelling iodine Adverse Reaction (Verified 09/13/20 19:36) Other BLISTERS mycin Allergy (Uncoded 09/13/20 19:36) Anaphylaxis Home Medications: Ambulatory Orders Medication Instructions Recorded Amoxicillin/Potassium Clav 1 ea PO BID 09/13/20 [Amox-Clav 875-125 mg Tablet] Azithromycin 250 mg PO DAILY 09/13/20 Lisinopril [Prinivil] 10 mg PO DAILY 09/13/20 Prednisone 10 mg PO DAILY 09/13/20 Surgical History: - - Knee surgery; hand surgery. Lives: With Family Smoking Status: Never smoker Alcohol: None Drugs: None - *Family History Maternal History Items: Cancer - Breast Paternal History Items: Heart Disease Review of Systems Comment: See HPI Patient Problems: Active and Suspected Problems (Last Reviewed 09/14/20 @ 05:[address] Frantz Dupont MD) SARS (severe acute respiratory syndrome) (Acute) COVID-19 (Acute) Objective: All imaging was personally reviewed. Agree with formal interpretation. Patient has not had an echocardiogram or pulmonary function test completed that are available for review. - Physical Exam Vitals/I&O's: Vital Signs Temp Pulse Resp BP Pulse Ox 36.1 C L 102 H 42 H 135/74 H 89 09/14/20 14:39 09/14/20 14:39 09/14/20 14:39 09/14/20 14:39 09/14/20 14:39 Oxygen Flow Rate (L/min) 6 Oxygen Delivery Method Nasal Cannula Weight: 112.7 kg Body Mass Index (BMI) 36.6 Intake and Output for Last 24 Hours 09/12/20 09/13/20 09/14/20 23:59 23:59 23:59 Intake Total 1080 / 1080 Balance 1080 / 1080 General: Alert, Oriented x3, Cooperative, - - Mild conversational dyspnea. Obese. HEENT: Atraumatic, PERRLA, EOMI, Normocephalic, - - No scleral icterus or injection noted Oral: Moist Mucosa, No Gingival or Mucosal Lesions/ Ulcerations Neck: Supple, No JVD, No Nodes, Trachea Midline Lungs: No rhonchi, No rales, Diminished, Wheezes - At end exhalation Cardiovascular: Normal S1, Normal S2, No murmurs, No rub noted, No Gallop, Tachycardic Abdomen: Bowel Sounds Present, Soft, Non Tender, Non-Distended, Obese Extremities: No clubbing, No cyanosis, No edema Skin: No rashes, No breakdown Musculoskeletal: No Tenderness to Palpation of Joints or Extremities Lymphatic: No Cervical, Supraclavicular, or Inguinal Adenopathy Neurological: Cranial nerves II-XII grossly intact, Neuro grossly intact, Motor Exam 5/5 strength throughout Psych/Mental Status: Alert and oriented to time, place, person, mood and affect Microbiology Past 72 Hours 09/13/20 19:58 Mucosa - Nose Respiratory Panel (PCR) - Final Laboratory Results 09/13/20 19:58: COVID-19 (MILLIE) Detected 09/13/20 20:13: WBC 10.7, RBC 4.55, Hgb 13.3, Hct 41.7, MCV 91.6, MCH 29.2, MCHC 31.9 L, RDW Std Deviation 45.7 H, RDW Coeff of Cara 13.5, Plt Count 321, MPV 8.9, Immature Gran % (Auto) 1.500 H, Neut % (Auto) 87.5 H, Lymph % (Auto) 5.2 L, Ware % (Auto) 5.6, Eos % (Auto) 0.0, Baso % (Auto) 0.2, Absolute Neuts (auto) 9.4 H, Absolute Lymphs (auto) 0.56 L, Nucleated RBC % 0, Differential Comment SCANNED 09/13/20 20:13: D-Dimer Quant (PE/DVT) 0.98 H* 09/13/20 20:13: Sodium 135 L, Potassium 3.3 L, Chloride 99, Carbon Dioxide 27.0, Anion Gap 9, BUN 19 H, Creatinine 0.85, Estim Creat Clear Calc 71.72, Est GFR (MDRD) Af Amer 87, Est GFR (MDRD) Non-Af 72, BUN/Creatinine Ratio 22.3 H, Glucose 153 H, Calcium 8.8, Total Bilirubin 0.40, AST 42 H, ALT 56, Alkaline Phosphatase 112, Lactate Dehydrogenase 311 H, Troponin I < 0.015, Total Protein 7.9, Albumin 2.8 L, Globulin 5.1 H, Albumin/Globulin Ratio 0.5 L 09/13/20 20:13: Lactic Acid 1.0 09/13/20 20:13: B-Natriuretic Peptide 17.9 09/14/20 04:48: Procalcitonin < 0.04 09/14/20 04:48: WBC 12.7 H, RBC 4.47, Hgb 12.9, Hct 40.8, MCV 91.3, MCH 28.9, MCHC 31.6 L, RDW Std Deviation 45.7 H, RDW Coeff of Cara 13.5, Plt Count 327, MPV 9.3, Immature Gran % (Auto) 1.300 H, Neut % (Auto) 87.2 H, Lymph % (Auto) 5.0 L, Ware % (Auto) 6.3, Eos % (Auto) 0.0, Baso % (Auto) 0.2, Absolute Neuts (auto) 11.1 H, Absolute Lymphs (auto) 0.64 L, Nucleated RBC % 0 09/14/20 04:48: Sodium 134 L, Potassium 4.1, Chloride 98, Carbon Dioxide 26.0, Anion Gap 10, BUN 21 H, Creatinine 0.74, Estim Creat Clear Calc 82.38, Est GFR (MDRD) Af Amer 102, Est GFR (MDRD) Non-Af 84, BUN/Creatinine Ratio 28.3 H, Glucose 125 H, Calcium 8.3 L 09/14/20 14:34: Blood Type A POSITIVE Current Medications Acetaminophen (Acetaminophen 325 Mg Tablet) 650 mg PO Q6H PRN PRN PRN Reason: Pain Score 1-10/Temp > 100.7 F Albuterol Sulfate (Albuterol Ih 8.5 Gm (Proair) Inhaler (200 Puffs)) 2 puff INHALATION Q4H PRN PRN PRN Reason: sob/wheezing Last Admin: 09/14/20 14:53 Dose: 2 puff Documented by: Dexamethasone (Dexamethasone 4 Mg Tablet) 6 mg PO DAILY@0800 [facility] Last Admin: 09/14/20 08:57 Dose: 6 mg Documented by: Enoxaparin Sodium (Enoxaparin 30 Mg/0.3 Ml Syringe) 30 mg SC BID [facility] Last Admin: 09/14/20 08:57 Dose: 30 mg Documented by: Guaifenesin (Guaifenesin 10 Ml Udc (200mg/10ml)) 10 ml PO Q4H PRN PRN PRN Reason: COUGH Last Admin: 09/14/20 11:02 Dose: 10 ml Documented by: Remdesivir 100 mg/ Sodium (Chloride) 250 mls @ 125 mls/hr IV DAILY [facility]; Protocol Stop: 09/18/20 11:59 Lisinopril (Lisinopril 10 Mg Tablet) 10 mg PO DAILY [facility] Last Admin: 09/14/20 08:57 Dose: 10 mg Documented by: Melatonin (Melatonin 3 Mg Tablet) 3 mg PO QHS PRN PRN PRN Reason: INSOMNIA Nutritional Formula (Lactose Free) (Ensure Enlive 120 Ml Liquid) 120 ml PO 4X/DAY [facility] Last Admin: 09/14/20 14:38 Dose: Not Given Documented by: Ondansetron HCl (Ondansetron 4 Mg/2 Ml Vial) 4 mg IV Q8H PRN PRN PRN Reason: NAUSEA/VOMITING Sodium Chloride (0.9% Saline Lock 10 Ml Syringe) 10 - 40 ml IV UD PRN PRN Reason: SALINE FLUSH Last Admin: 09/14/20 14:47 Dose: 10 ml Documented by: Clinical Impression(s) from Imaging Studies Chest X-Ray 09/13/20 20:30 IMPRESSION: Findings suspicious for Covid 19 pneumonia. Clinical correlation recommended Electronically Signed: Abner Xie MD at 20:54 EST , Service support , Chest CTA 09/13/20 20:52 IMPRESSION: Diffuse bilateral mixed interstitial and alveolar infiltrates within the upper and lower lobes bilaterally. Covid 19 pneumonia not excluded. No evidence for pulmonary embolus Electronically Signed: Abner Xie MD at 22:06 EST , Service support , Assessment/Plan All Active Problems (Last Reviewed 09/14/20 @ 05:[address] Frantz Dupont MD) SARS (severe acute respiratory syndrome) (Acute) COVID-19 (Acute) RECOMMENDATIONS: 1. Continue with Decadron and Lovenox 2. Initiate remdesivir and convalescent serum 3. Increase oxygen as necessary to maintain saturations greater than 90% 4. Encourage incentive spirometer IMPRESSIONS: 1. Acute hypoxic respiratory failure secondary to COVID-19 Patient with significant supplemental oxygen requirements and multiple groundglass opacity noted on CT of the chest. Patient does not have any pulmonary emboli, but does appear to have significant involvement of the lungs. Patient does have a history of asthma. Patient would be a candidate for convalescent serum, remdesivir, Decadron and Lovenox in my opinion. All of these have been initiated. Patient may need to require high flow nasal cannula to maintain saturations as patient may continue to worsen over the next 2 to 4 days. Continue to monitor closely. Patient is willing to be intubated if necessary. 2. Asthma/advanced age/obesity/multiple allergies Complicates care, management, recovery and prognosis. May need to hold MARTHA inhibitor pending renal function. Continue to monitor. Inpatient E&M: 71047 Init Hosp L3
[2020-09-14] MEDS: Acetaminophen 325 MG Tablet 650 MG PO (22:38)
[2020-09-15] VITALS (19 sets, daily range): BP systolic 125–152; BP diastolic 71–91; PULSE 73–96; RESP 16–29; TEMP 36.1–36.7; O2SAT 84–99
[2020-09-15] MEDS: 0.9% Saline Lock 10 ML Syringe IV ×3 (02:38→10:13)
[2020-09-15] MEDS: guaiFENesin 10 ML UDC (200MG/10ML) PO ×2 (02:57→21:35)
[2020-09-15 05:41] LABS: Hematocrit 39.6 % (37-47); Hemoglobin 12.3 g/dL (12.0-15.0); Mean Corp Hgb Conc 31.1 g/dL (32-36); Mean Corpuscular Hgb 28.7 pg (27.0-32.0); Mean Corpuscular Volume 92.3 fL (81-99); Platelet Count 340 K/mm3 (150-450); RBC Distribution Width CV 13.7 % (11.6-14.6); RBC Distribution Width SD 46.5 fl (35.1-43.9); Red Blood Count 4.29 M/mm3 (4.2-5.4); White Blood Count 16.7 K/mm3 (4.4-11.0)
[2020-09-15 06:06] LABS: ALB/GLOB Ratio 0.5 RATIO (0.9-2.4); AST(SGOT) 31 U/L (15-37); Alanine Aminotransfer ALT/SGPT 47 U/L (13-56); Albumin, Serum 2.5 g/dL (3.2-5.0); Alkaline Phosphatase 97 U/L (45-117); Anion Gap 6 (5-15); BUN 31 mg/dL (7-18); Calcium,Total 8.9 mg/dL (8.5-10.1); Chloride 102 mmol/L (98-107); Creatinine, Serum 0.74 mg/dL (0.55-1.02); EST Glomerular Filtration Rate 85 mL/min (>60); Est Glom Filt Rate - Afr Amer 103 mL/min (>60); Estimated Creatinine Clearance 82.38 ml/min; Globulin 4.8 g/dL (2.2-4.2); Glucose 132 mg/dL (74-106); Potassium 3.7 mmol/L (3.5-5.1); Protein, Total 7.3 g/dL (6.4-8.2); Sodium Level 136 mmol/L (136-145)
[2020-09-15] MEDS: dexAMETHasone 4 MG Tablet 6 MG PO (08:09)
[2020-09-15] MEDS: Lisinopril 10 MG Tablet PO (08:09)
[2020-09-15] MEDS: Enoxaparin 30 MG/0.3 ML Syringe SC ×2 (08:09→21:35)
--- NOTE | 2020-09-15 10:36 | PN_ITS ---
Patient Problems: Active and Suspected Problems (Last Reviewed 09/14/20 @ 05:[address] Frantz Dupont MD) SARS (severe acute respiratory syndrome) (Acute) COVID-19 (Acute) Subjective: Patient did receive convalescent serum overnight and tolerated this well. Patient feels grossly unchanged compared to yesterday. However, this morning, patient is noted to have significant progression and hypoxia requiring addition of high flow nasal cannula. - Physical Exam Vitals/I&O's: Vital Signs Temp Pulse Resp BP Pulse Ox 36.4 C L 92 20 H 152/74 H 94 09/15/20 10:16 09/15/20 10:16 09/15/20 10:16 09/15/20 10:16 09/15/20 10:16 Oxygen Flow Rate (L/min) 55 Oxygen Delivery Method Airvo Weight: 112.7 kg Body Mass Index (BMI) 36.6 Intake and Output for Last 24 Hours 09/13/20 09/14/20 09/15/20 23:59 23:59 23:59 Intake Total 2230 / 2230 550 / 550 Balance 2230 / 2230 550 / 550 General: Alert, Oriented x3, Cooperative, No apparent distress, - - Obese no conversational dyspnea. HEENT: Atraumatic, PERRLA, EOMI, Normocephalic, - - Slight scleral injection without icterus Oral: Moist Mucosa, No Gingival or Mucosal Lesions/ Ulcerations Neck: Supple, No JVD, No Nodes, Trachea Midline Lungs: No rhonchi, No wheeze, No rales, Diminished, - - Symmetric expansion. No dullness to percussion. Cardiovascular: Normal S1, Normal S2, No murmurs, No rub noted, No Gallop, Tachycardic Abdomen: Bowel Sounds Present, Soft, Non Tender, Non-Distended, Obese Extremities: No clubbing, No cyanosis, No edema, Capillary Refill Less than 3 Seconds Skin: No rashes, No breakdown Musculoskeletal: No Tenderness to Palpation of Joints or Extremities Lymphatic: No Cervical, Supraclavicular, or Inguinal Adenopathy Neurological: Cranial nerves II-XII grossly intact, Neuro grossly intact, Motor Exam 5/5 strength throughout Psych/Mental Status: Alert and oriented to time, place, person, mood and affect Microbiology Past 72 Hours 09/13/20 19:58 Mucosa - Nose Respiratory Panel (PCR) - Final Laboratory Results 09/14/20 14:34: Blood Type A POSITIVE 09/15/20 05:10: WBC 16.7 H, RBC 4.29, Hgb 12.3, Hct 39.6, MCV 92.3, MCH 28.7, MCHC 31.1 L, RDW Std Deviation 46.5 H, RDW Coeff of Cara 13.7, Plt Count 340, MPV 9.0 09/15/20 05:10: Sodium 136, Potassium 3.7, Chloride 102, Carbon Dioxide 28.0, Anion Gap 6, BUN 31 H, Creatinine 0.74, Estim Creat Clear Calc 82.38, Est GFR (MDRD) Af Amer 103, Est GFR (MDRD) Non-Af 85, BUN/Creatinine Ratio 42.0 H, Glucose 132 H, Calcium 8.9, Total Bilirubin 0.40, AST 31, ALT 47, Alkaline Phosphatase 97, Total Protein 7.3, Albumin 2.5 L, Globulin 4.8 H, Albumin/Globulin Ratio 0.5 L Current Medications Acetaminophen (Acetaminophen 325 Mg Tablet) 650 mg PO Q6H PRN PRN PRN Reason: Pain Score 1-10/Temp > 100.7 F Last Admin: 09/14/20 22:38 Dose: 650 mg Documented by: Albuterol Sulfate (Albuterol Ih 8.5 Gm (Proair) Inhaler (200 Puffs)) 2 puff INHALATION Q4H PRN PRN PRN Reason: sob/wheezing Last Admin: 09/14/20 14:53 Dose: 2 puff Documented by: Dexamethasone (Dexamethasone 4 Mg Tablet) 6 mg PO DAILY@0800 [facility] Last Admin: 09/15/20 08:09 Dose: 6 mg Documented by: Enoxaparin Sodium (Enoxaparin 30 Mg/0.3 Ml Syringe) 30 mg SC BID [facility] Last Admin: 09/15/20 08:09 Dose: 30 mg Documented by: Guaifenesin (Guaifenesin 10 Ml Udc (200mg/10ml)) 10 ml PO Q4H PRN PRN PRN Reason: COUGH Last Admin: 09/15/20 02:57 Dose: 10 ml Documented by: Remdesivir 100 mg/ Sodium (Chloride) 250 mls @ 125 mls/hr IV DAILY [facility]; Protocol Stop: 09/18/20 11:59 Last Admin: 09/15/20 10:13 Dose: 125 mls/hr Documented by: Lisinopril (Lisinopril 10 Mg Tablet) 10 mg PO DAILY [facility] Last Admin: 09/15/20 08:09 Dose: 10 mg Documented by: Melatonin (Melatonin 3 Mg Tablet) 3 mg PO QHS PRN PRN PRN Reason: INSOMNIA Nutritional Formula (Lactose Free) (Ensure Enlive 120 Ml Liquid) 120 ml PO 4X/DAY [facility] Last Admin: 09/15/20 08:09 Dose: 120 ml Documented by: Ondansetron HCl (Ondansetron 4 Mg/2 Ml Vial) 4 mg IV Q8H PRN PRN PRN Reason: NAUSEA/VOMITING Sodium Chloride (0.9% Saline Lock 10 Ml Syringe) 10 - 40 ml IV UD PRN PRN Reason: SALINE FLUSH Last Admin: 09/15/20 10:13 Dose: 10 ml Documented by: Medical Necessity - Tobacco Use Smoking Status: Never smoker Assessment/Plan All Active Problems (Last Reviewed 09/14/20 @ 05:[address] Frantz Dupont MD) SARS (severe acute respiratory syndrome) (Acute) COVID-19 (Acute) RECOMMENDATIONS: 1. Continue with Decadron and Lovenox 2. Continue remdesivir. Completed convalescent serum 3. Increase oxygen as necessary to maintain saturations greater than 90% 4. Encourage incentive spirometer 5. Supplemental oxygen as necessary IMPRESSIONS: 1. Acute hypoxic respiratory failure secondary to COVID-19 Patient with significant supplemental oxygen requirements and multiple groundglass opacity noted on CT of the chest. Patient does not have any pulmonary emboli, but does appear to have significant involvement of the lungs. Patient does have a history of asthma. Patient has been placed on maximal therapy. Patient may have an element of cytokine storm at this time secondary to convalescent serum leading to increased oxygen demands. Cannot exclude the need for BiPAP rescue as patient does have obesity with significantly worsening oxygen requirements. We will continue to monitor clinically. No transfer to the intensive care unit at this time. 2. Asthma/advanced age/obesity/multiple allergies Complicates care, management, recovery and prognosis. May need to hold MARTHA inhibitor pending renal function. Continue to monitor. Inpatient E&M: [id number] [facility] L3
--- NOTE | 2020-09-15 11:20 | PN.ID_ITS ---
Patient Problems: Active and Suspected Problems (Last Reviewed 09/14/20 @ 05:[address] Frantz Dupont MD) SARS (severe acute respiratory syndrome) (Acute) COVID-19 (Acute) Subjective: Had a rough night but overall feeling better this AM. No fever, no n/v/d. - Physical Exam Vitals/I&O's: Vital Signs Temp Pulse Resp BP Pulse Ox 97.5 F L 92 20 H 152/74 H 94 09/15/20 10:16 09/15/20 10:16 09/15/20 10:16 09/15/20 10:16 09/15/20 10:16 Oxygen Flow Rate (L/min) 55 Oxygen Delivery Method Airvo Weight: 112.7 kg Body Mass Index (BMI) 36.6 Intake and Output for Last 24 Hours 09/13/20 09/14/20 09/15/20 23:59 23:59 23:59 Intake Total 2230 / 2230 550 / 550 Balance 2230 / 2230 550 / 550 General: Alert, Cooperative, No apparent distress Lungs: Diminished Cardiovascular: Regular rate, Regular Rhythm Abdomen: Soft, Non Tender, Non-Distended Skin: No rashes Microbiology Past 72 Hours 09/13/20 19:58 Mucosa - Nose Respiratory Panel (PCR) - Final Laboratory Results 09/14/20 14:34: Blood Type A POSITIVE 09/15/20 05:10: WBC 16.7 H, RBC 4.29, Hgb 12.3, Hct 39.6, MCV 92.3, MCH 28.7, MCHC 31.1 L, RDW Std Deviation 46.5 H, RDW Coeff of Cara 13.7, Plt Count 340, MPV 9.0 09/15/20 05:10: Sodium 136, Potassium 3.7, Chloride 102, Carbon Dioxide 28.0, Anion Gap 6, BUN 31 H, Creatinine 0.74, Estim Creat Clear Calc 82.38, Est GFR (MDRD) Af Amer 103, Est GFR (MDRD) Non-Af 85, BUN/Creatinine Ratio 42.0 H, Glucose 132 H, Calcium 8.9, Total Bilirubin 0.40, AST 31, ALT 47, Alkaline Phosphatase 97, Total Protein 7.3, Albumin 2.5 L, Globulin 4.8 H, Albumin/Globulin Ratio 0.5 L Current Medications Acetaminophen (Acetaminophen 325 Mg Tablet) 650 mg PO Q6H PRN PRN PRN Reason: Pain Score 1-10/Temp > 100.7 F Last Admin: 09/14/20 22:38 Dose: 650 mg Documented by: Albuterol Sulfate (Albuterol Ih 8.5 Gm (Proair) Inhaler (200 Puffs)) 2 puff INHALATION Q4H PRN PRN PRN Reason: sob/wheezing Last Admin: 09/14/20 14:53 Dose: 2 puff Documented by: Dexamethasone (Dexamethasone 4 Mg Tablet) 6 mg PO DAILY@0800 REPLACED BY [facility] Last Admin: 09/15/20 08:09 Dose: 6 mg Documented by: Enoxaparin Sodium (Enoxaparin 30 Mg/0.3 Ml Syringe) 30 mg SC BID REPLACED BY [facility] Last Admin: 09/15/20 08:09 Dose: 30 mg Documented by: Guaifenesin (Guaifenesin 10 Ml Udc (200mg/10ml)) 10 ml PO Q4H PRN PRN PRN Reason: COUGH Last Admin: 09/15/20 02:57 Dose: 10 ml Documented by: Remdesivir 100 mg/ Sodium (Chloride) 250 mls @ 125 mls/hr IV DAILY REPLACED BY [facility]; Protocol Stop: 09/18/20 11:59 Last Admin: 09/15/20 10:13 Dose: 125 mls/hr Documented by: Lisinopril (Lisinopril 10 Mg Tablet) 10 mg PO DAILY REPLACED BY [facility] Last Admin: 09/15/20 08:09 Dose: 10 mg Documented by: Melatonin (Melatonin 3 Mg Tablet) 3 mg PO QHS PRN PRN PRN Reason: INSOMNIA Ondansetron HCl (Ondansetron 4 Mg/2 Ml Vial) 4 mg IV Q8H PRN PRN PRN Reason: NAUSEA/VOMITING Sodium Chloride (0.9% Saline Lock 10 Ml Syringe) 10 - 40 ml IV UD PRN PRN Reason: SALINE FLUSH Last Admin: 09/15/20 10:13 Dose: 10 ml Documented by: Medical Necessity - Tobacco Use Smoking Status: Never smoker Route of nutrition/ use of supplements: [] Nutritional Intake: [] IV Site: [] Massey Catheter: [] - Assessment/Plan Antibiotics: [] Assessment/Plan: [] Active and Suspected Problems (Last Reviewed 09/14/20 @ 05:[address] Frantz Dupont MD) SARS (severe acute respiratory syndrome) (Acute) COVID-19 (Acute) covid with hypoxia - on dex, lovenox 30mg bid. On airvo this AM. On remdesivir. Got plasma 09/15/20. Will follow
--- NOTE | 2020-09-15 11:51 | PCM.PN.HOSP ---
Patient Problems: Active and Suspected Problems (Last Reviewed 09/14/20 @ 05:[address] Frantz Dupont MD) SARS (severe acute respiratory syndrome) (Acute) COVID-19 (Acute) Subjective: Had to be transitioned to [place] this morning secondary to high oxygen needs I did discuss with her the possibility of progression to intubation and she is okay with that. Vitals/I&O's: Vital Signs Temp Pulse Resp BP Pulse Ox 97.5 F L 92 20 H 152/74 H 94 09/15/20 10:16 09/15/20 10:16 09/15/20 10:16 09/15/20 10:16 09/15/20 10:16 Oxygen Flow Rate (L/min) 55 Oxygen Delivery Method Airvo Weight: 248 lb 7.375 oz Body Mass Index (BMI) 36.6 Intake and Output for Last 24 Hours 09/13/20 09/14/20 09/15/20 23:59 23:59 23:59 Intake Total 2230 / 2230 550 / 550 Balance 2230 / 2230 550 / 550 General: Alert, Oriented x3, Cooperative, No apparent distress HEENT: Atraumatic, PERRLA, EOMI, Normocephalic Oral: Moist Mucosa Neck: Supple, No JVD Lungs: Clear to auscultation, Normal air movement, No rhonchi, No wheeze, No rales Cardiovascular: Regular rate, Regular Rhythm, Normal S1, Normal S2, No murmurs Abdomen: Soft, Non Tender, Non-Distended, No Hepato-splenomegaly Extremities: No edema, Capillary Refill Less than 3 Seconds Skin: No rashes, No breakdown Neurological: Neuro grossly intact, Sensory exam intact to light touch and pain Psych/Mental Status: Normal Affect, Appropriate Microbiology Past 72 Hours 09/13/20 19:58 Mucosa - Nose Respiratory Panel (PCR) - Final Laboratory Results 09/14/20 14:34: Blood Type A POSITIVE 09/15/20 05:10: WBC 16.7 H, RBC 4.29, Hgb 12.3, Hct 39.6, MCV 92.3, MCH 28.7, MCHC 31.1 L, RDW Std Deviation 46.5 H, RDW Coeff of Cara 13.7, Plt Count 340, MPV 9.0 09/15/20 05:10: Sodium 136, Potassium 3.7, Chloride 102, Carbon Dioxide 28.0, Anion Gap 6, BUN 31 H, Creatinine 0.74, Estim Creat Clear Calc 82.38, Est GFR (MDRD) Af Amer 103, Est GFR (MDRD) Non-Af 85, BUN/Creatinine Ratio 42.0 H, Glucose 132 H, Calcium 8.9, Total Bilirubin 0.40, AST 31, ALT 47, Alkaline Phosphatase 97, Total Protein 7.3, Albumin 2.5 L, Globulin 4.8 H, Albumin/Globulin Ratio 0.5 L Current Medications Acetaminophen (Acetaminophen 325 Mg Tablet) 650 mg PO Q6H PRN PRN PRN Reason: Pain Score 1-10/Temp > 100.7 F Last Admin: 09/14/20 22:38 Dose: 650 mg Documented by: Albuterol Sulfate (Albuterol Ih 8.5 Gm (Proair) Inhaler (200 Puffs)) 2 puff INHALATION Q4H PRN PRN PRN Reason: sob/wheezing Last Admin: 09/14/20 14:53 Dose: 2 puff Documented by: Dexamethasone (Dexamethasone 4 Mg Tablet) 6 mg PO DAILY@0800 [facility] Last Admin: 09/15/20 08:09 Dose: 6 mg Documented by: Enoxaparin Sodium (Enoxaparin 30 Mg/0.3 Ml Syringe) 30 mg SC BID [facility] Last Admin: 09/15/20 08:09 Dose: 30 mg Documented by: Guaifenesin (Guaifenesin 10 Ml Udc (200mg/10ml)) 10 ml PO Q4H PRN PRN PRN Reason: COUGH Last Admin: 09/15/20 02:57 Dose: 10 ml Documented by: Remdesivir 100 mg/ Sodium (Chloride) 250 mls @ 125 mls/hr IV DAILY [facility]; Protocol Stop: 09/18/20 11:59 Last Admin: 09/15/20 10:13 Dose: 125 mls/hr Documented by: Lisinopril (Lisinopril 10 Mg Tablet) 10 mg PO DAILY [facility] Last Admin: 09/15/20 08:09 Dose: 10 mg Documented by: Melatonin (Melatonin 3 Mg Tablet) 3 mg PO QHS PRN PRN PRN Reason: INSOMNIA Ondansetron HCl (Ondansetron 4 Mg/2 Ml Vial) 4 mg IV Q8H PRN PRN PRN Reason: NAUSEA/VOMITING Sodium Chloride (0.9% Saline Lock 10 Ml Syringe) 10 - 40 ml IV UD PRN PRN Reason: SALINE FLUSH Last Admin: 09/15/20 10:13 Dose: 10 ml Documented by: STROKE Vital Signs/Narrative: Vital Signs Temp Pulse Resp BP Pulse Ox 09/15/20 10:16 97.5 F L 92 20 H 152/74 H 94 09/15/20 08:35 94 09/15/20 08:30 94 09/15/20 08:23 84 09/15/20 08:04 97.5 F L 96 18 137/79 H 84 Medical Necessity - Tobacco Use Smoking Status: Never smoker Assessment/Plan All Active Problems (Last Reviewed 09/14/20 @ 05:[address] Frantz Dupont MD) SARS (severe acute respiratory syndrome) (Acute) COVID-19 (Acute) 1. Acute hypoxic respiratory failure secondary to COVID-19 pneumonia -CTA of her chest was negative for PEs -Given the positive Covid test, no need for antibiotics at this time -Continue with Decadron -Appreciate pulmonology and ID assistance -Continue with remdesivir, and she received convalescent plasma on 08/15/2020 2. HTN -Blood pressure stable, continue with lisinopril DVT: Lovenox Inpatient E&M: [id number] Subs Hosp L2
[2020-09-16] VITALS (19 sets, daily range): BP systolic 129–156; BP diastolic 74–101; PULSE 75–98; RESP 12–34; TEMP 36.2–37.2; O2SAT 89–98
[2020-09-16] MEDS: guaiFENesin 10 ML UDC (200MG/10ML) PO (04:11)
[2020-09-16 05:34] LABS: Hemoglobin 12.7 g/dL (12.0-15.0); Mean Corpuscular Hgb 29.2 pg (27.0-32.0); Mean Corpuscular Volume 94.3 fL (81-99); Mean Platelet Vol. 9.4 fl (6.2-12.0); Platelet Count 384 K/mm3 (150-450); RBC Distribution Width CV 13.7 % (11.6-14.6); RBC Distribution Width SD 47.7 fl (35.1-43.9); Red Blood Count 4.35 M/mm3 (4.2-5.4); White Blood Count 11.8 K/mm3 (4.4-11.0)
[2020-09-16 06:07] LABS: ALB/GLOB Ratio 0.5 RATIO (0.9-2.4); AST(SGOT) 26 U/L (15-37); Alanine Aminotransfer ALT/SGPT 42 U/L (13-56); Albumin, Serum 2.4 g/dL (3.2-5.0); Alkaline Phosphatase 92 U/L (45-117); Anion Gap 6 (5-15); BUN 27 mg/dL (7-18); BUN/Creat Ratio 42.9 RATIO (10-20); Calcium,Total 8.7 mg/dL (8.5-10.1); Chloride 103 mmol/L (98-107); Creatinine, Serum 0.63 mg/dL (0.55-1.02); EST Glomerular Filtration Rate 102 mL/min (>60); Est Glom Filt Rate - Afr Amer 123 mL/min (>60); Estimated Creatinine Clearance 96.76 ml/min; Globulin 4.6 g/dL (2.2-4.2); Glucose 125 mg/dL (74-106); Potassium 3.8 mmol/L (3.5-5.1); Sodium Level 136 mmol/L (136-145)
--- NOTE | 2020-09-16 06:55 | NURSING ---
Reassesed patient and changed 02 sats monitor and placed it on a different finger. Placed other sats monitor on a couple of different fingers with the same result. 02 sats while in room came up to 90%. On leaving room patient frequently dropping in low to mid 80s. After consistently having 02 sats low to mid 80s called respiratory. Dr Joya consulted by respiratory and decision made to initiate patient on bipap. Notified Dr Haji that patient was going on bipap and requested a change of status. Status changed to [facility] tele.
[2020-09-16 07:45] LABS: Base Excess 3 mmol/L (-2 to +2); Bicarbonate 26.4 mmol/L (22-26); Blood Gas Specimen Type ART; FI02 65; O2 Delivery Device BiPAP; PO2 57 mmHG (75-100); SITE L Brach; SO2 91 % (95-99); Total Carbon Dioxide 28 mmol/L; pCO2 37.7 mmHg (35-45); pH 7.45 (7.35-7.45)
[2020-09-16] MEDS: Enoxaparin 30 MG/0.3 ML Syringe SC ×2 (10:17→23:15)
--- NOTE | 2020-09-16 10:30 | PN_ITS ---
Patient Problems: Active and Suspected Problems (Last Reviewed 09/14/20 @ 05:[address] Frantz Dupont MD) SARS (severe acute respiratory syndrome) (Acute) COVID-19 (Acute) Subjective: Patient did okay overnight. This morning, patient was found to be significantly hypoxic despite relatively low symptoms. Patient was transitioned to BiPAP therapy and was comfortable by the time I evaluated her. Patient is not reporting any productive cough - Physical Exam Vitals/I&O's: Vital Signs Temp Pulse Resp BP Pulse Ox 36.9 C 95 28 H 147/81 H 95 09/16/20 10:08 09/16/20 10:08 09/16/20 10:08 09/16/20 10:08 09/16/20 10:08 Oxygen Flow Rate (L/min) 60 Oxygen Delivery Method Bi-pap Weight: 112.7 kg Body Mass Index (BMI) 36.6 Intake and Output for Last 24 Hours 09/14/20 09/15/20 09/16/20 23:59 23:59 23:59 Intake Total 2230 / 2230 1550 / 1650 300 / 300 Output Total 350 / 650 300 / 300 Balance 2230 / 2230 1200 / 1000 0 / 0 General: Alert, Oriented x3, Cooperative, No apparent distress, - - Good BiPAP synchrony. Obese. HEENT: Atraumatic, PERRLA, EOMI, Normocephalic, - - No scleral icterus or injection noted Oral: Moist Mucosa, No Gingival or Mucosal Lesions/ Ulcerations Neck: Supple, No JVD, No Nodes, Trachea Midline Lungs: No rhonchi, No wheeze, No rales, Diminished Cardiovascular: Regular rate, Regular Rhythm, Normal S1, Normal S2, No murmurs, No rub noted, No Gallop Abdomen: Bowel Sounds Present, Soft, Non Tender, Non-Distended, Obese Extremities: No clubbing, No cyanosis, No edema Skin: No rashes, No breakdown Musculoskeletal: No Tenderness to Palpation of Joints or Extremities Lymphatic: No Cervical, Supraclavicular, or Inguinal Adenopathy Neurological: Cranial nerves II-XII grossly intact, Neuro grossly intact, Motor Exam 5/5 strength throughout Psych/Mental Status: Anxious Microbiology Past 72 Hours 09/13/20 20:15 Blood Culture (Wb) - Right Hand Blood Culture - Preliminary No growth in 48 hours. 09/13/20 20:13 Blood Culture (Wb) - Anticubital Right Blood Culture - Preliminary No growth in 48 hours. 09/13/20 19:58 Mucosa - Nose Respiratory Panel (PCR) - Final Laboratory Results 09/16/20 04:56: WBC 11.8 H, RBC 4.35, Hgb 12.7, Hct 41.0, MCV 94.3, MCH 29.2, MCHC 31.0 L, RDW Std Deviation 47.7 H, RDW Coeff of Cara 13.7, Plt Count 384, MPV 9.4 09/16/20 04:56: Sodium 136, Potassium 3.8, Chloride 103, Carbon Dioxide 27.0, Anion Gap 6, BUN 27 H, Creatinine 0.63, Estim Creat Clear Calc 96.76, Est GFR (MDRD) Af Amer 123, Est GFR (MDRD) Non-Af 102, BUN/Creatinine Ratio 42.9 H, Glucose 125 H, Calcium 8.7, Total Bilirubin 0.40, AST 26, ALT 42, Alkaline Phosphatase 92, Total Protein 7.0, Albumin 2.4 L, Globulin 4.6 H, Albumin/Globulin Ratio 0.5 L 09/16/20 07:41: Specimen Type ART, Sample Site L Brach, pH 7.45, Bicarbonate A ctual 26.4 H, Total CO2 28, Base Excess 3 H, O2 Saturation 91 L, O2 % 65, ABG pCO2 37.7, ABG pO2 57 L, O2 Delivery Device BiPAP Current Medications Acetaminophen (Acetaminophen 325 Mg Tablet) 650 mg PO Q6H PRN PRN PRN Reason: Pain Score 1-10/Temp > 100.7 F Last Admin: 09/14/20 22:38 Dose: 650 mg Documented by: Albuterol Sulfate (Albuterol Ih 8.5 Gm (Proair) Inhaler (200 Puffs)) 2 puff INHALATION Q4H PRN PRN PRN Reason: sob/wheezing Last Admin: 09/16/20 04:26 Dose: 2 puff Documented by: Dexamethasone (Dexamethasone 4 Mg Tablet) 6 mg PO DAILY@0800 [facility] Last Admin: 09/15/20 08:09 Dose: 6 mg Documented by: Enoxaparin Sodium (Enoxaparin 30 Mg/0.3 Ml Syringe) 30 mg SC BID [facility] Last Admin: 09/16/20 10:17 Dose: 30 mg Documented by: Guaifenesin (Guaifenesin 10 Ml Udc (200mg/10ml)) 10 ml PO Q4H PRN PRN PRN Reason: COUGH Last Admin: 09/16/20 04:11 Dose: 10 ml Documented by: Remdesivir 100 mg/ Sodium (Chloride) 250 mls @ 125 mls/hr IV DAILY [facility]; Protocol Stop: 09/18/20 11:59 Last Admin: 09/16/20 10:12 Dose: 125 mls/hr Documented by: Lisinopril (Lisinopril 10 Mg Tablet) 10 mg PO DAILY [facility] Last Admin: 09/15/20 08:09 Dose: 10 mg Documented by: Melatonin (Melatonin 3 Mg Tablet) 3 mg PO QHS PRN PRN PRN Reason: INSOMNIA Ondansetron HCl (Ondansetron 4 Mg/2 Ml Vial) 4 mg IV Q8H PRN PRN PRN Reason: NAUSEA/VOMITING Sodium Chloride (0.9% Saline Lock 10 Ml Syringe) 10 - 40 ml IV UD PRN PRN Reason: SALINE FLUSH Last Admin: 09/15/20 10:13 Dose: 10 ml Documented by: Medical Necessity - Tobacco Use Smoking Status: Never smoker Assessment/Plan All Active Problems (Last Reviewed 09/14/20 @ 05:[address] Frantz Dupont MD) SARS (severe acute respiratory syndrome) (Acute) COVID-19 (Acute) RECOMMENDATIONS: 1. Continue with Decadron and Lovenox 2. Continue remdesivir. Completed convalescent serum 3. Increase oxygen as necessary to maintain saturations greater than 90% 4. Encourage incentive spirometer 5. Supplemental oxygen as necessary IMPRESSIONS: 1. Acute hypoxic respiratory failure secondary to COVID-19 Patient with significant supplemental oxygen requirements and multiple groundglass opacity noted on CT of the chest. Patient does not have any pulmonary emboli, but does appear to have significant involvement of the lungs. Patient does have a history of asthma. Patient has been placed on maximal therapy. Patient with some worsening this morning, but stabilized quickly with the use of BiPAP. Clinical suspicion for an element of atelectasis leading to decompensation. We will continue to monitor on the floor for now, but it cannot exclude the need to move to the intensive care unit. Pro calcitonin was low, so clinical suspicion for superinfection is low. 2. Asthma/advanced age/obesity/multiple allergies Complicates care, management, recovery and prognosis. May need to hold AC E inhibitor pending renal function. Continue to monitor. Inpatient E&M: [id number] [facility] Hosp L3
--- NOTE | 2020-09-16 10:34 | PN_ITS ---
Patient Problems: Active and Suspected Problems (Last Reviewed 09/14/20 @ 05:[address] Frantz Dupont MD) SARS (severe acute respiratory syndrome) (Acute) COVID-19 (Acute) Subjective: Had to be placed on BiPAP today secondary to increasing oxygen requirement on the airflow as well as dropping oxygen sats. She is tolerating the BiPAP very well which is an FiO2 of 60%. Respiratory rate has improved ABG with a PO2 of 57 however this ABG was obtained 15 to 20 minutes after BiPAP was initiated so I believe that the PO2 was much lower. Vitals/I&O's: Vital Signs Temp Pulse Resp BP Pulse Ox 98.5 F 95 28 H 147/81 H 95 09/16/20 10:08 09/16/20 10:08 09/16/20 10:08 09/16/20 10:08 09/16/20 10:08 Oxygen Flow Rate (L/min) 60 Oxygen Delivery Method Bi-pap Weight: 248 lb 7.375 oz Body Mass Index (BMI) 36.6 Intake and Output for Last 24 Hours 09/14/20 09/15/20 09/16/20 23:59 23:59 23:59 Intake Total 2230 / 2230 1550 / 1650 300 / 300 Output Total 350 / 650 300 / 300 Balance 2230 / 2230 1200 / 1000 0 / 0 General: Alert, Oriented x3, Cooperative, No apparent distress HEENT: Atraumatic, PERRLA, EOMI, Normocephalic Oral: Moist Mucosa Neck: Supple, No JVD Lungs: Clear to auscultation, Normal air movement, No rhonchi, No wheeze, No rales, tachypneic Cardiovascular: Regular rate, Regular Rhythm, Normal S1, Normal S2, No murmurs Abdomen: Soft, Non Tender, Non-Distended, No Hepato-splenomegaly Extremities: No edema, Capillary Refill Less than 3 Seconds Skin: No rashes, No breakdown Neurological: Neuro grossly intact, Sensory exam intact to light touch and pain Psych/Mental Status: Normal Affect, Appropriate Microbiology Past 72 Hours 09/13/20 20:15 Blood Culture (Wb) - Right Hand Blood Culture - Preliminary No growth in 48 hours. 09/13/20 20:13 Blood Culture (Wb) - Anticubital Right Blood Culture - Preliminary No growth in 48 hours. 09/13/20 19:58 Mucosa - Nose Respiratory Panel (PCR) - Final Laboratory Results 09/16/20 04:56: WBC 11.8 H, RBC 4.35, Hgb 12.7, Hct 41.0, MCV 94.3, MCH 29.2, MCHC 31.0 L, RDW Std Deviation 47.7 H, RDW Coeff of Cara 13.7, Plt Count 384, MPV 9.4 09/16/20 04:56: Sodium 136, Potassium 3.8, Chloride 103, Carbon Dioxide 27.0, Anion Gap 6, BUN 27 H, Creatinine 0.63, Estim Creat Clear Calc 96.76, Est GFR (MDRD) Af Amer 123, Est GFR (MDRD) Non-Af 102, BUN/Creatinine Ratio 42.9 H, Glucose 125 H, Calcium 8.7, Total Bilirubin 0.40, AST 26, ALT 42, Alkaline Phosphatase 92, Total Protein 7.0, Albumin 2.4 L, Globulin 4.6 H, Albumin/Globulin Ratio 0.5 L 09/16/20 07:41: Specimen Type ART, Sample Site L Brach, pH 7.45, Bicarbonate Actual 26.4 H, Total CO2 28, Base Excess 3 H, O2 Saturation 91 L, O2 % 65, ABG pCO2 37.7, ABG pO2 57 L, O2 Delivery Device BiPAP Current Medications Acetaminophen (Acetaminophen 325 Mg Tablet) 650 mg PO Q6H PRN PRN PRN Reason: Pain Score 1-10/Temp > 100.7 F Last Admin: 09/14/20 22:38 Dose: 650 mg Documented by: Albuterol Sulfate (Albuterol Ih 8.5 Gm (Proair) Inhaler (200 Puffs)) 2 puff INHALATION Q4H PRN PRN PRN Reason: sob/wheezing Last Admin: 09/16/20 04:26 Dose: 2 puff Documented by: Dexamethasone (Dexamethasone 4 Mg Tablet) 6 mg PO DAILY@0800 [facility] Last Admin: 09/15/20 08:09 Dose: 6 mg Documented by: Enoxaparin Sodium (Enoxaparin 30 Mg/0.3 Ml Syringe) 30 mg SC BID [facility] Last Admin: 09/16/20 10:17 Dose: 30 mg Documented by: Guaifenesin (Guaifenesin 10 Ml Udc (200mg/10ml)) 10 ml PO Q4H PRN PRN PRN Reason: COUGH Last Admin: 09/16/20 04:11 Dose: 10 ml Documented by: Remdesivir 100 mg/ Sodium (Chloride) 250 mls @ 125 mls/hr IV DAILY [facility]; Protocol Stop: 09/18/20 11:59 Last Admin: 09/16/20 10:12 Dose: 125 mls/hr Documented by: Lisinopril (Lisinopril 10 Mg Tablet) 10 mg PO DAILY [facility] Last Admin: 09/15/20 08:09 Dose: 10 mg Documented by: Melatonin (Melatonin 3 Mg Tablet) 3 mg PO QHS PRN PRN PRN Reason: INSOMNIA Ondansetron HCl (Ondansetron 4 Mg/2 Ml Vial) 4 mg IV Q8H PRN PRN PRN Reason: NAUSEA/VOMITING Sodium Chloride (0.9% Saline Lock 10 Ml Syringe) 10 - 40 ml IV UD PRN PRN Reason: SALINE FLUSH Last Admin: 09/15/20 10:13 Dose: 10 ml Documented by: STROKE Vital Signs/Narrative: Vital Signs Temp Pulse Resp BP Pulse Ox 09/16/20 10:08 98.5 F 95 28 H 147/81 H 95 09/16/20 08:15 97.2 F L 86 32 H 156/89 H 93 09/16/20 06:40 93 30 H 91 Medical Necessity - Tobacco Use Smoking Status: Never smoker Assessment/Plan All Active Problems (Last Reviewed 09/14/20 @ 05:[address] Frantz Dupont MD) SARS (severe acute respiratory syndrome) (Acute) COVID-19 (Acute) 1. Acute hypoxic respiratory failure secondary to COVID-19 pneumonia -CTA of her chest was negative for PEs -Given the positive Covid test, no need for antibiotics at this time -Continue with Decadron -Appreciate pulmonology and ID assistance -Continue with remdesivir, and she received convalescent plasma on 08/15/2020 -Had to be placed on BiPAP 09/16/2020 2. HTN -Blood pressure stable, continue with lisinopril DVT: Lovenox Inpatient E&M: [id number] Subs Hosp L2
[2020-09-16] MEDS: Lisinopril 10 MG Tablet PO (13:20)
[2020-09-16] MEDS: dexAMETHasone 4 MG Tablet 6 MG PO (13:20)
--- NOTE | 2020-09-16 15:28 | PCM.PN.ID ---
Patient Problems: Active and Suspected Problems (Last Reviewed 09/14/20 @ 05:[address] Frantz Dupont MD) SARS (severe acute respiratory syndrome) (Acute) COVID-19 (Acute) Subjective: Feeling about the same, no fever, no n/v/d. - Physical Exam Vitals/I&O's: Vital Signs Temp Pulse Resp BP Pulse Ox 98.5 F 81 18 129/74 H 98 09/16/20 15:11 09/16/20 15:11 09/16/20 15:11 09/16/20 15:11 09/16/20 15:11 Oxygen Flow Rate (L/min) 60 Oxygen Delivery Method Airvo Weight: 112.7 kg Body Mass Index (BMI) 36.6 Intake and Output for Last 24 Hours 09/14/20 09/15/20 09/16/20 23:59 23:59 23:59 Intake Total 2230 / 2230 1550 / 1650 550 / 550 Output Total 350 / 650 300 / 300 Balance 2230 / 2230 1200 / 1000 250 / 250 General: Alert, Cooperative, No apparent distress Lungs: Diminished Cardiovascular: Regular rate, Regular Rhythm Abdomen: Soft, Non Tender, Non-Distended Skin: No rashes Microbiology Past 72 Hours 09/13/20 20:15 Blood Culture (Wb) - Right Hand Blood Culture - Preliminary No growth in 48 hours. 09/13/20 20:13 Blood Culture (Wb) - Anticubital Right Blood Culture - Preliminary No growth in 48 hours. 09/13/20 19:58 Mucosa - Nose Respiratory Panel (PCR) - Final Laboratory Results 09/16/20 04:56: WBC 11.8 H, RBC 4.35, Hgb 12.7, Hct 41.0, MCV 94.3, MCH 29.2, MCHC 31.0 L, RDW Std Deviation 47.7 H, RDW Coeff of Cara 13.7, Plt Count 384, MPV 9.4 09/16/20 04:56: Sodium 136, Potassium 3.8, Chloride 103, Carbon Dioxide 27.0, Anion Gap 6, BUN 27 H, Creatinine 0.63, Estim Creat Clear Calc 96.76, Est GFR (MDRD) Af Amer 123, Est GFR (MDRD) Non-Af 102, BUN/Creatinine Ratio 42.9 H, Glucose 125 H, Calcium 8.7, Total Bilirubin 0.40, AST 26, ALT 42, Alkaline Phosphatase 92, Total Protein 7.0, Albumin 2.4 L, Globulin 4.6 H, Albumin/Globulin Ratio 0.5 L 09/16/20 07:41: Specimen Type ART, Sample Site L Brach, pH 7.45, Bicarbonate Actual 26.4 H, Total CO2 28, Base Excess 3 H, O2 Saturation 91 L, O2 % 65, ABG pCO2 37.7, ABG pO2 57 L, O2 Delivery Device BiPAP Current Medications Acetaminophen (Acetaminophen 325 Mg Tablet) 650 mg PO Q6H PRN PRN PRN Reason: Pain Score 1-10/Temp > 100.7 F Last Admin: 09/14/20 22:38 Dose: 650 mg Documented by: Albuterol Sulfate (Albuterol Ih 8.5 Gm (Proair) Inhaler (200 Puffs)) 2 puff INHALATION Q4H PRN PRN PRN Reason: sob/wheezing Last Admin: 09/16/20 04:26 Dose: 2 puff Documented by: Dexamethasone (Dexamethasone 4 Mg Tablet) 6 mg PO DAILY@0800 [facility] Last Admin: 09/16/20 13:20 Dose: 6 mg Documented by: Enoxaparin Sodium (Enoxaparin 30 Mg/0.3 Ml Syringe) 30 mg SC BID [facility] Last Admin: 09/16/20 10:17 Dose: 30 mg Documented by: Guaifenesin (Guaifenesin 10 Ml Udc (200mg/10ml)) 10 ml PO Q4H PRN PRN PRN Reason: COUGH Last Admin: 09/16/20 04:11 Dose: 10 ml Documented by: Remdesivir 100 mg/ Sodium (Chloride) 250 mls @ 125 mls/hr IV DAILY [facility]; Protocol Stop: 09/18/20 11:59 Last Infusion: 09/16/20 13:25 Dose: Infused Documented by: Lisinopril (Lisinopril 10 Mg Tablet) 10 mg PO DAILY [facility] Last Admin: 09/16/20 13:20 Dose: 10 mg Documented by: Melatonin (Melatonin 3 Mg Tablet) 3 mg PO QHS PRN PRN PRN Reason: INSOMNIA Ondansetron HCl (Ondansetron 4 Mg/2 Ml Vial) 4 mg IV Q8H PRN PRN PRN Reason: NAUSEA/VOMITING Sodium Chloride (0.9% Saline Lock 10 Ml Syringe) 10 - 40 ml IV UD PRN PRN Reason: SALINE FLUSH Last Admin: 09/15/20 10:13 Dose: 10 ml Documented by: Medical Necessity - Tobacco Use Smoking Status: Never smoker Route of nutrition/ use of supplements: [] Nutritional Intake: [] IV Site: [] Massey Catheter: [] - Assessment/Plan Antibiotics: [] Assessment/Plan: [] Active and Suspected Problems (Last Reviewed 09/14/20 @ 05:[address] Frantz Dupont MD) SARS (severe acute respiratory syndrome) (Acute) COVID-19 (Acute) covid with hypoxia - on dex, lovenox 30mg bid. On airvo this PM. On remdesivir. Got plasma 09/15/20. Will follow
[2020-09-17] VITALS (21 sets, daily range): BP systolic 132–154; BP diastolic 80–87; PULSE 66–95; RESP 12–28; TEMP 36.3–37.3; O2SAT 89–99
--- NOTE | 2020-09-17 07:29 | CPS ---
Patient was on Airvo not CPAP.
[2020-09-17] MEDS: dexAMETHasone 4 MG Tablet 6 MG PO (09:49)
[2020-09-17] MEDS: guaiFENesin 10 ML UDC (200MG/10ML) PO ×2 (09:49→20:48)
[2020-09-17] MEDS: Enoxaparin 30 MG/0.3 ML Syringe SC ×2 (09:49→20:34)
[2020-09-17] MEDS: Lisinopril 10 MG Tablet PO (09:49)
[2020-09-17 10:37] LABS: Hematocrit 43.4 % (37-47); Hemoglobin 13.5 g/dL (12.0-15.0); Mean Corp Hgb Conc 31.1 g/dL (32-36); Mean Corpuscular Hgb 29.3 pg (27.0-32.0); Mean Corpuscular Volume 94.1 fL (81-99); Mean Platelet Vol. 9.2 fl (6.2-12.0); Platelet Count 486 K/mm3 (150-450); RBC Distribution Width CV 13.8 % (11.6-14.6); RBC Distribution Width SD 47.7 fl (35.1-43.9); Red Blood Count 4.61 M/mm3 (4.2-5.4); White Blood Count 13.2 K/mm3 (4.4-11.0)
[2020-09-17] MEDS: 0.9% Saline Lock 10 ML Syringe IV (11:06)
[2020-09-17 11:12] LABS: ALB/GLOB Ratio 0.6 RATIO (0.9-2.4); AST(SGOT) 19 U/L (15-37); Alanine Aminotransfer ALT/SGPT 37 U/L (13-56); Albumin, Serum 2.6 g/dL (3.2-5.0); Alkaline Phosphatase 98 U/L (45-117); Anion Gap 8 (5-15); BUN 22 mg/dL (7-18); Calcium,Total 8.6 mg/dL (8.5-10.1); Chloride 101 mmol/L (98-107); Creatinine, Serum 0.82 mg/dL (0.55-1.02); EST Glomerular Filtration Rate 76 mL/min (>60); Est Glom Filt Rate - Afr Amer 91 mL/min (>60); Estimated Creatinine Clearance 74.34 ml/min; Globulin 4.7 g/dL (2.2-4.2); Glucose 152 mg/dL (74-106); Potassium 3.6 mmol/L (3.5-5.1); Protein, Total 7.3 g/dL (6.4-8.2); Sodium Level 137 mmol/L (136-145)
--- NOTE | 2020-09-17 12:02 | PN_ITS ---
Patient Problems: Active and Suspected Problems (Last Reviewed 09/14/20 @ 05:[address] Frantz Dupont MD) SARS (severe acute respiratory syndrome) (Acute) COVID-19 (Acute) Subjective: Patient did well overnight. Patient reporting that she actually is feeling subjectively improved compared to yesterday. Patient is reporting less shortness of breath and less body aches compared to previous. Patient reports that she had significant issues with dyspnea immediately upon waking up this morning, but found that she was having sinus congestion and this improved with blowing her nose. - Physical Exam Vitals/I&O's: Vital Signs Temp Pulse Resp BP Pulse Ox 37.3 C 95 24 H 154/87 H 96 09/17/20 08:09 09/17/20 09:13 09/17/20 08:09 09/17/20 08:09 09/17/20 08:09 Oxygen Flow Rate (L/min) 45 Oxygen Delivery Method Airvo Weight: 112.7 kg Body Mass Index (BMI) 36.6 Intake and Output for Last 24 Hours 09/15/20 09/16/20 09/17/20 23:59 23:59 23:59 Intake Total 1550 / 1650 550 / 550 400 / 400 Output Total 350 / 650 300 / 300 400 / 400 Balance 1200 / 1000 250 / 250 0 / 0 General: Alert, Oriented x3, Cooperative, - - Mild conversational dyspnea HEENT: Atraumatic, PERRLA, EOMI, Normocephalic, - - No scleral icterus or injection noted Oral: Moist Mucosa, No Gingival or Mucosal Lesions/ Ulcerations Neck: Supple, No JVD, No Nodes, Trachea Midline Lungs: No rhonchi, No wheeze, No rales, Diminished, - - Symmetric expansion. No dullness to percussion. Cardiovascular: Regular rate, Regular Rhythm, Normal S1, Normal S2, No murmurs, No rub noted, No Gallop Abdomen: Bowel Sounds Present, Soft, Non Tender, Non-Distended, Obese Extremities: No clubbing, No cyanosis, Edema - Trace lower extremity Skin: No rashes Musculoskeletal: No Tenderness to Palpation of Joints or Extremities Lymphatic: No Cervical, Supraclavicular, or Inguinal Adenopathy Neurological: Cranial nerves II-XII grossly intact, Neuro grossly intact, Motor Exam 5/5 strength throughout Psych/Mental Status: Alert and oriented to time, place, person, mood and affect Microbiology Past 72 Hours 09/13/20 20:15 Blood Culture (Wb) - Right Hand Blood Culture - Preliminary No growth in 48 hours. 09/13/20 20:13 Blood Culture (Wb) - Anticubital Right Blood Culture - Preliminary No growth in 48 hours. Laboratory Results 09/17/20 10:10: WBC 13.2 H, RBC 4.61, Hgb 13.5, Hct 43.4, MCV 94.1, MCH 29.3, MCHC 31.1 L, RDW Std Deviation 47.7 H, RDW Coeff of Cara 13.8, Plt Count 486 H, MPV 9.2 09/17/20 10:10: Sodium 137, Potassium 3.6, Chloride 101, Carbon Dioxide 28.0, Anion Gap 8, BUN 22 H, Creatinine 0.82, Estim Creat Clear Calc 74.34, Est GFR (MDRD) Af Amer 91, Est GFR (MDRD) Non-Af 76, BUN/Creatinine Ratio 27.0 H, Glucose 152 H, Calcium 8.6, Total Bilirubin 0.40, AST 19, ALT 37, Alkaline Phosphatase 98, Total Protein 7.3, Albumin 2.6 L, Globulin 4.7 H, Albumin/Globulin Ratio 0.6 L Current Medications Acetaminophen (Acetaminophen 325 Mg Tablet) 650 mg PO Q6H PRN PRN PRN Reason: Pain Score 1-10/Temp > 100.7 F Last Admin: 09/14/20 22:38 Dose: 650 mg Documented by: Albuterol Sulfate (Albuterol Ih 8.5 Gm (Proair) Inhaler (200 Puffs)) 2 puff INHALATION Q4H PRN PRN PRN Reason: sob/wheezing Last Admin: 09/16/20 04:26 Dose: 2 puff Documented by: Dexamethasone (Dexamethasone 4 Mg Tablet) 6 mg PO DAILY@0800 [facility] Last Admin: 09/17/20 09:49 Dose: 6 mg Documented by: Enoxaparin Sodium (Enoxaparin 30 Mg/0.3 Ml Syringe) 30 mg SC BID [facility] Last Admin: 09/17/20 09:49 Dose: 30 mg Documented by: Guaifenesin (Guaifenesin 10 Ml Udc (200mg/10ml)) 10 ml PO Q4H PRN PRN PRN Reason: COUGH Last Admin: 09/17/20 09:49 Dose: 10 ml Documented by: Remdesivir 100 mg/ Sodium (Chloride) 250 mls @ 125 mls/hr IV DAILY [facility]; Protocol Stop: 09/18/20 11:59 Last Admin: 09/17/20 11:05 Dose: 125 mls/hr Documented by: Lisinopril (Lisinopril 10 Mg Tablet) 10 mg PO DAILY [facility] Last Admin: 09/17/20 09:49 Dose: 10 mg Documented by: Melatonin (Melatonin 3 Mg Tablet) 3 mg PO QHS PRN PRN PRN Reason: INSOMNIA Ondansetron HCl (Ondansetron 4 Mg/2 Ml Vial) 4 mg IV Q8H PRN PRN PRN Reason: NAUSEA/VOMITING Sodium Chloride (0.9% Saline Lock 10 Ml Syringe) 10 - 40 ml IV UD PRN PRN Reason: SALINE FLUSH Last Admin: 09/17/20 11:06 Dose: 10 ml Documented by: Medical Necessity - Tobacco Use Smoking Status: Never smoker Assessment/Plan All Active Problems (Last Reviewed 09/14/20 @ 05:[address] Frantz Dupont MD) SARS (severe acute respiratory syndrome) (Acute) COVID-19 (Acute) RECOMMENDATIONS: 1. Continue with Decadron and Lovenox 2. Continue remdesivir. Completed convalescent serum 3. Increase oxygen as necessary to maintain saturations greater than 90% 4. Encourage incentive spirometer 5. Supplemental oxygen as necessary. Add nasal saline IMPRESSIONS: 1. Acute hypoxic respiratory failure secondary to COVID-19 Patient with significant supplemental oxygen requirements and multiple groundglass opacity noted on CT of the chest. Patient does not have any pulmonary emboli, but does appear to have significant involvement of the lungs. Patient does have a history of asthma. Patient has been placed on maximal therapy. Patient appears to be improving compared to yesterday. Likely secondary to decreased cytokines following resolution of convalescent plasma. We will add nasal saline to help with sinus congestion 2. Asthma/advanced age/obesity/multiple allergies Complicates care, management, recovery and prognosis. May need to hold MARTHA inhibitor pending renal function. Continue to monitor. Inpatient E&M: [id number] [facility] Hosp L3
--- NOTE | 2020-09-17 12:45 | PCM.PN.HOSP ---
Patient Problems: Active and Suspected Problems (Last Reviewed 09/14/20 @ 05:[address] Frantz Dupont MD) SARS (severe acute respiratory syndrome) (Acute) COVID-19 (Acute) Subjective: Doing well, she was able to come off of BiPAP and go back on the Airvo Vitals/I&O's: Vital Signs Temp Pulse Resp BP Pulse Ox 99.1 F 95 24 H 154/87 H 96 09/17/20 08:09 09/17/20 09:13 09/17/20 08:09 09/17/20 08:09 09/17/20 08:09 Oxygen Flow Rate (L/min) 45 Oxygen Delivery Method Airvo Weight: 248 lb 7.375 oz Body Mass Index (BMI) 36.6 Intake and Output for Last 24 Hours 09/15/20 09/16/20 09/17/20 23:59 23:59 23:59 Intake Total 1550 / 1650 550 / 550 400 / 400 Output Total 350 / 650 300 / 300 400 / 400 Balance 1200 / 1000 250 / 250 0 / 0 General: Alert, Oriented x3, Cooperative, No apparent distress HEENT: Atraumatic, PERRLA, EOMI, Normocephalic Oral: Moist Mucosa Neck: Supple, No JVD Lungs: Clear to auscultation, Normal air movement, No rhonchi, No wheeze, No rales, tachypneic Cardiovascular: Regular rate, Regular Rhythm, Normal S1, Normal S2, No murmurs Abdomen: Soft, Non Tender, Non-Distended, No Hepato-splenomegaly Extremities: No edema, Capillary Refill Less than 3 Seconds Skin: No rashes, No breakdown Neurological: Neuro grossly intact, Sensory exam intact to light touch and pain Psych/Mental Status: Normal Affect, Appropriate Microbiology Past 72 Hours 09/13/20 20:15 Blood Culture (Wb) - Right Hand Blood Culture - Preliminary No growth in 48 hours. 09/13/20 20:13 Blood Culture (Wb) - Anticubital Right Blood Culture - Preliminary No growth in 48 hours. Laboratory Results 09/17/20 10:10: WBC 13.2 H, RBC 4.61, Hgb 13.5, Hct 43.4, MCV 94.1, MCH 29.3, MCHC 31.1 L, RDW Std Deviation 47.7 H, RDW Coeff of Cara 13.8, Plt Count 486 H, MPV 9.2 09/17/20 10:10: Sodium 137, Potassium 3.6, Chloride 101, Carbon Dioxide 28.0, Anion Gap 8, BUN 22 H, Creatinine 0.82, Estim Creat Clear Calc 74.34, Est GFR (MDRD) Af Amer 91, Est GFR (MDRD) Non-Af 76, BUN/Creatinine Ratio 27.0 H, Glucose 152 H, Calcium 8.6, Total Bilirubin 0.40, AST 19, ALT 37, Alkaline Phosphatase 98, Total Protein 7.3, Albumin 2.6 L, Globulin 4.7 H, Albumin/Globulin Ratio 0.6 L Current Medications Acetaminophen (Acetaminophen 325 Mg Tablet) 650 mg PO Q6H PRN PRN PRN Reason: Pain Score 1-10/Temp > 100.7 F Last Admin: 09/14/20 22:38 Dose: 650 mg Documented by: Albuterol Sulfate (Albuterol Ih 8.5 Gm (Proair) Inhaler (200 Puffs)) 2 puff INHALATION Q4H PRN PRN PRN Reason: sob/wheezing Last Admin: 09/16/20 04:26 Dose: 2 puff Documented by: Dexamethasone (Dexamethasone 4 Mg Tablet) 6 mg PO DAILY@0800 [facility] Last Admin: 09/17/20 09:49 Dose: 6 mg Documented by: Enoxaparin Sodium (Enoxaparin 30 Mg/0.3 Ml Syringe) 30 mg SC BID [facility] Last Admin: 09/17/20 09:49 Dose: 30 mg Documented by: Guaifenesin (Guaifenesin 10 Ml Udc (200mg/10ml)) 10 ml PO Q4H PRN PRN PRN Reason: COUGH Last Admin: 09/17/20 09:49 Dose: 10 ml Documented by: Remdesivir 100 mg/ Sodium (Chloride) 250 mls @ 125 mls/hr IV DAILY [facility]; Protocol Stop: 09/18/20 11:59 Last Admin: 09/17/20 11:05 Dose: 125 mls/hr Documented by: Lisinopril (Lisinopril 10 Mg Tablet) 10 mg PO DAILY [facility] Last Admin: 09/17/20 09:49 Dose: 10 mg Documented by: Melatonin (Melatonin 3 Mg Tablet) 3 mg PO QHS PRN PRN PRN Reason: INSOMNIA Ondansetron HCl (Ondansetron 4 Mg/2 Ml Vial) 4 mg IV Q8H PRN PRN PRN Reason: NAUSEA/VOMITING Sodium Chloride (0.9% Saline Lock 10 Ml Syringe) 10 - 40 ml IV UD PRN PRN Reason: SALINE FLUSH Last Admin: 09/17/20 11:06 Dose: 10 ml Documented by: Sodium Chloride (Sodium Chloride 0.65% 1 [place].Btl) 2 spray NASAL TID PRN PRN PRN Reason: NASAL DRYNESS STROKE Vital Signs/Narrative: Vital Signs Pulse 09/17/20 09:13 95 Medical Necessity - Tobacco Use Smoking Status: Never smoker Assessment/Plan All Active Problems (Last Reviewed 09/14/20 @ 05:[address] Frantz Dupont MD) SARS (severe acute respiratory syndrome) (Acute) COVID-19 (Acute) 1. Acute hypoxic respiratory failure secondary to COVID-19 pneumonia -CTA of her chest was negative for PEs -Given the positive Covid test, no need for antibiotics at this time -Continue with Decadron -Appreciate pulmonology and ID assistance -Continue with remdesivir, and she received convalescent plasma on 08/15/2020 -Had to be placed on BiPAP 09/16/2020 2. HTN -Blood pressure stable, continue with lisinopril DVT: Lovenox Inpatient E&M: [id number] Subs Hosp L2
[2020-09-17] MEDS: Sodium Chloride 0.65% 1 SPRAY SPRAY.BTL 2 SPRAY NASAL (20:32)
[2020-09-18] VITALS (18 sets, daily range): BP systolic 109–163; BP diastolic 75–95; PULSE 64–109; RESP 12–27; TEMP 36.4–36.9; O2SAT 90–98
[2020-09-18] MEDS: Sodium Chloride 0.65% 1 SPRAY SPRAY.BTL 2 SPRAY NASAL ×2 (02:31→20:03)
[2020-09-18 06:28] LABS: Hemoglobin 12.7 g/dL (12.0-15.0); Mean Corp Hgb Conc 30.2 g/dL (32-36); Mean Corpuscular Hgb 28.5 pg (27.0-32.0); Mean Corpuscular Volume 94.2 fL (81-99); Mean Platelet Vol. 8.8 fl (6.2-12.0); Platelet Count 501 K/mm3 (150-450); RBC Distribution Width CV 13.5 % (11.6-14.6); RBC Distribution Width SD 47.6 fl (35.1-43.9); Red Blood Count 4.46 M/mm3 (4.2-5.4); White Blood Count 13.8 K/mm3 (4.4-11.0)
[2020-09-18 07:01] LABS: ALB/GLOB Ratio 0.5 RATIO (0.9-2.4); AST(SGOT) 15 U/L (15-37); Alanine Aminotransfer ALT/SGPT 32 U/L (13-56); Albumin, Serum 2.4 g/dL (3.2-5.0); Alkaline Phosphatase 85 U/L (45-117); Anion Gap 6 (5-15); BUN 20 mg/dL (7-18); BUN/Creat Ratio 31.9 RATIO (10-20); Calcium,Total 8.4 mg/dL (8.5-10.1); Chloride 103 mmol/L (98-107); Creatinine, Serum 0.63 mg/dL (0.55-1.02); EST Glomerular Filtration Rate 102 mL/min (>60); Est Glom Filt Rate - Afr Amer 124 mL/min (>60); Estimated Creatinine Clearance 96.76 ml/min; Globulin 4.4 g/dL (2.2-4.2); Glucose 94 mg/dL (74-106); Potassium 3.9 mmol/L (3.5-5.1); Protein, Total 6.8 g/dL (6.4-8.2); Sodium Level 139 mmol/L (136-145)
[2020-09-18] MEDS: dexAMETHasone 4 MG Tablet 6 MG PO (08:23)
[2020-09-18] MEDS: Enoxaparin 30 MG/0.3 ML Syringe SC ×2 (08:23→20:03)
[2020-09-18] MEDS: Lisinopril 10 MG Tablet PO (08:23)
--- NOTE | 2020-09-18 09:00 | PN_ITS ---
Patient Problems: Active and Suspected Problems (Last Reviewed 09/14/20 @ 05:[address] Frantz Dupont MD) SARS (severe acute respiratory syndrome) (Acute) COVID-19 (Acute) Subjective: Patient is still requiring significant amounts of supplemental oxygen to maintain saturations. However, patient states she feels subjectively improved compared to previous. Patient is not reporting any chest pain. Patient has not had any nasal congestion issues overnight leading to desaturation. - Physical Exam Vitals/I&O's: Vital Signs Temp Pulse Resp BP Pulse Ox 36.9 C 96 20 H 145/88 H 97 09/18/20 08:27 09/18/20 08:27 09/18/20 08:27 09/18/20 08:27 09/18/20 08:27 Oxygen Flow Rate (L/min) 60 Oxygen Delivery Method Airvo Weight: 112.7 kg Body Mass Index (BMI) 36.6 Intake and Output for Last 24 Hours 09/16/20 09/17/20 09/18/20 23:59 23:59 23:59 Intake Total 550 / 550 650.25 / 650.25 201.5 / 201.5 Output Total 300 / 300 400 / 400 Balance 250 / 250 250.25 / 250.25 201.5 / 201.5 General: Alert, Oriented x3, Cooperative, No apparent distress - On high flow nasal cannula, - - Obese. HEENT: Atraumatic, PERRLA, EOMI, Normocephalic, - - Significant scleral injection without icterus or hemorrhage Oral: Moist Mucosa, No Gingival or Mucosal Lesions/ Ulcerations Neck: Supple, No JVD, No Nodes, Trachea Midline Lungs: No rhonchi, No wheeze, No rales, Diminished Cardiovascular: Regular rate, Regular Rhythm, Normal S1, Normal S2, No murmurs, No rub noted, No Gallop Abdomen: Bowel Sounds Present, Soft, Non Tender, Non-Distended, Obese Extremities: No clubbing, No cyanosis, Edema - Trace Skin: No rashes, No breakdown Musculoskeletal: No Tenderness to Palpation of Joints or Extremities Lymphatic: No Cervical, Supraclavicular, or Inguinal Adenopathy Neurological: Cranial nerves II-XII grossly intact, Neuro grossly intact, Motor Exam 5/5 strength throughout Psych/Mental Status: Alert and oriented to time, place, person, mood and affect Microbiology Past 72 Hours 09/13/20 20:15 Blood Culture (Wb) - Right Hand Blood Culture - Preliminary No growth in 48 hours. 09/13/20 20:13 Blood Culture (Wb) - Anticubital Right Blood Culture - Preliminary No growth in 48 hours. Laboratory Results 09/17/20 10:10: WBC 13.2 H, RBC 4.61, Hgb 13.5, Hct 43.4, MCV 94.1, MCH 29.3, MCHC 31.1 L, RDW Std Deviation 47.7 H, RDW Coeff of Cara 13.8, Plt Count 486 H, MPV 9.2 09/17/20 10:10: Sodium 137, Potassium 3.6, Chloride 101, Carbon Dioxide 28.0, Anion Gap 8, BUN 22 H, Creatinine 0.82, Estim Creat Clear Calc 74.34, Est GFR (MDRD) Af Amer 91, Est GFR (MDRD) Non-Af 76, BUN/Creatinine Ratio 27.0 H, Glucose 152 H, Calcium 8.6, Total Bilirubin 0.40, AST 19, ALT 37, Alkaline Phosphatase 98, Total Protein 7.3, Albumin 2.6 L, Globulin 4.7 H, Albumin/Globulin Ratio 0.6 L 09/18/20 05:14: WBC 13.8 H, RBC 4.46, Hgb 12.7, Hct 42.0, MCV 94.2, MCH 28.5, MCHC 30.2 L, RDW Std Deviation 47.6 H, RDW Coeff of Cara 13.5, Plt Count 501 H, MPV 8.8 09/18/20 05:14: Sodium 139, Potassium 3.9, Chloride 103, Carbon Dioxide 30.0, Anion Gap 6, BUN 20 H, Creatinine 0.63, Estim Creat Clear Calc 96.76, Est GFR (MDRD) Af Amer 124, Est GFR (MDRD) Non-Af 102, BUN/Creatinine Ratio 31.9 H, Glucose 94, Calcium 8.4 L, Total Bilirubin 0.40, AST 15, ALT 32, Alkaline Phosphatase 85, Total Protein 6.8, Albumin 2.4 L, Globulin 4.4 H, Albumin/Globulin Ratio 0.5 L Current Medications Acetaminophen (Acetaminophen 325 Mg Tablet) 650 mg PO Q6H PRN PRN PRN Reason: Pain Score 1-10/Temp > 100.7 F Last Admin: 09/14/20 22:38 Dose: 650 mg Documented by: Albuterol Sulfate (Albuterol Ih 8.5 Gm (Proair) Inhaler (200 Puffs)) 2 puff INHALATION Q4H PRN PRN PRN Reason: sob/wheezing Last Admin: 09/16/20 04:26 Dose: 2 puff Documented by: Dexamethasone (Dexamethasone 4 Mg Tablet) 6 mg PO DAILY@0800 [facility] Last Admin: 09/18/20 08:23 Dose: 6 mg Documented by: Enoxaparin Sodium (Enoxaparin 30 Mg/0.3 Ml Syringe) 30 mg SC BID [facility] Last Admin: 09/18/20 08:23 Dose: 30 mg Documented by: Guaifenesin (Guaifenesin 10 Ml Udc (200mg/10ml)) 10 ml PO Q4H PRN PRN PRN Reason: COUGH Last Admin: 09/17/20 20:48 Dose: 10 ml Documented by: Remdesivir 100 mg/ Sodium (Chloride) 250 mls @ 125 mls/hr IV DAILY [facility]; Protocol Stop: 09/18/20 11:59 Last Infusion: 09/17/20 13:05 Dose: Infused Documented by: Sodium Chloride () 250 mls @ 15 mls/hr IV .[id number] PRN PRN Reason: Saline Flush Last Infusion: 09/18/20 02:31 Dose: 0 mls/hr Documented by: Sodium Chloride () 250 mls @ 15 mls/hr IV .[id number] PRN PRN Reason: Additional IVPB Infusion Lisinopril (Lisinopril 10 Mg Tablet) 10 mg PO DAILY [facility] Last Admin: 09/18/20 08:23 Dose: 10 mg Documented by: Melatonin (Melatonin 3 Mg Tablet) 3 mg PO QHS PRN PRN PRN Reason: INSOMNIA Ondansetron HCl (Ondansetron 4 Mg/2 Ml Vial) 4 mg IV Q8H PRN PRN PRN Reason: NAUSEA/VOMITING Sodium Chloride (0.9% Saline Lock 10 Ml Syringe) 10 - 40 ml IV UD PRN PRN Reason: SALINE FLUSH Last Admin: 09/17/20 11:06 Dose: 10 ml Documented by: Sodium Chloride (Sodium Chloride 0.65% 1 [place].Btl) 2 spray NASAL TID PRN PRN PRN Reason: NASAL DRYNESS Last Admin: 09/18/20 02:31 Dose: 2 spray Documented by: Medical Necessity - Tobacco Use Smoking Status: Never smoker Assessment/Plan All Active Problems (Last Reviewed 09/14/20 @ 05:[address] Frantz Dupont MD) SARS (severe acute respiratory syndrome) (Acute) COVID-19 (Acute) RECOMMENDATIONS: 1. Continue with Decadron and Lovenox 2. Continue remdesivir. Completed convalescent serum 3. Increase oxygen as necessary to maintain saturations greater than 90% 4. Encourage incentive spirometer 5. Supplemental oxygen and nasal saline as necessary. IMPRESSIONS: 1. Acute hypoxic respiratory failure secondary to COVID-19 Patient with significant supplemental oxygen requirements and multiple groundglass opacity noted on CT of the chest. Patient does not have any pulmonary emboli, but does appear to have significant involvement of the lungs. Patient does have a history of asthma. Patient has been placed on maximal therapy. Oxygenation remains marginal, but patient has tolerated the same amount of oxygen for 2 days in a row. Continue to monitor clinically. Likely not necessary to transfer to the intensive care unit, but will continue to monitor. 2. Asthma/advanced age/obesity/multiple allergies Complicates care, management, recovery and prognosis. May need to hold MARTHA inhibitor pending renal function. Continue to monitor. Inpatient E&M: [id number] [facility] Hosp L3
[2020-09-18] MEDS: 0.9% Saline Lock 10 ML Syringe IV (10:00)
--- NOTE | 2020-09-18 12:02 | PN_ITS ---
Patient Problems: Active and Suspected Problems (Last Reviewed 09/14/20 @ 05:[address] Frantz Dupont MD) SARS (severe acute respiratory syndrome) (Acute) COVID-19 (Acute) Subjective: Doing well, on Airvo, she did wear BiPAP overnight which she tolerates well Vitals/I&O's: Vital Signs Temp Pulse Resp BP Pulse Ox 98.4 F 99 20 H 145/88 H 97 09/18/20 08:27 09/18/20 09:18 09/18/20 08:27 09/18/20 08:27 09/18/20 08:27 Oxygen Flow Rate (L/min) 60 Oxygen Delivery Method Airvo Weight: 248 lb 7.375 oz Body Mass Index (BMI) 36.6 Intake and Output for Last 24 Hours 09/16/20 09/17/20 09/18/20 23:59 23:59 23:59 Intake Total 550 / 550 650.25 / 650.25 201.5 / 201.5 Output Total 300 / 300 400 / 400 Balance 250 / 250 250.25 / 250.25 201.5 / 201.5 General: Alert, Oriented x3, Cooperative, No apparent distress HEENT: Atraumatic, PERRLA, EOMI, Normocephalic Oral: Moist Mucosa Neck: Supple, No JVD Lungs: Clear to auscultation, Normal air movement, No rhonchi, No wheeze, No rales, tachypneic Cardiovascular: Regular rate, Regular Rhythm, Normal S1, Normal S2, No murmurs Abdomen: Soft, Non Tender, Non-Distended, No Hepato-splenomegaly Extremities: No edema, Capillary Refill Less than 3 Seconds Skin: No rashes, No breakdown Neurological: Neuro grossly intact, Sensory exam intact to light touch and pain Psych/Mental Status: Normal Affect, Appropriate Microbiology Past 72 Hours 09/13/20 20:15 Blood Culture (Wb) - Right Hand Blood Culture - Preliminary No growth in 48 hours. 09/13/20 20:13 Blood Culture (Wb) - Anticubital Right Blood Culture - Preliminary No growth in 48 hours. Laboratory Results 09/18/20 05:14: WBC 13.8 H, RBC 4.46, Hgb 12.7, Hct 42.0, MCV 94.2, MCH 28.5, MCHC 30.2 L, RDW Std Deviation 47.6 H, RDW Coeff of Cara 13.5, Plt Count 501 H, MPV 8.8 09/18/20 05:14: Sodium 139, Potassium 3.9, Chloride 103, Carbon Dioxide 30.0, Anion Gap 6, BUN 20 H, Creatinine 0.63, Estim Creat Clear Calc 96.76, Est GFR (MDRD) Af Amer 124, Est GFR (MDRD) Non-Af 102, BUN/Creatinine Ratio 31.9 H, Glucose 94, Calcium 8.4 L, Total Bilirubin 0.40, AST 15, ALT 32, Alkaline Phosphatase 85, Total Protein 6.8, Albumin 2.4 L, Globulin 4.4 H, Albumin/Globulin Ratio 0.5 L Current Medications Acetaminophen (Acetaminophen 325 Mg Tablet) 650 mg PO Q6H PRN PRN PRN Reason: Pain Score 1-10/Temp > 100.7 F Last Admin: 09/14/20 22:38 Dose: 650 mg Documented by: Albuterol Sulfate (Albuterol Ih 8.5 Gm (Proair) Inhaler (200 Puffs)) 2 puff INHALATION Q4H PRN PRN PRN Reason: sob/wheezing Last Admin: 09/16/20 04:26 Dose: 2 puff Documented by: Dexamethasone (Dexamethasone 4 Mg Tablet) 6 mg PO DAILY@0800 [facility] Last Admin: 09/18/20 08:23 Dose: 6 mg Documented by: Enoxaparin Sodium (Enoxaparin 30 Mg/0.3 Ml Syringe) 30 mg SC BID [facility] Last Admin: 09/18/20 08:23 Dose: 30 mg Documented by: Guaifenesin (Guaifenesin 10 Ml Udc (200mg/10ml)) 10 ml PO Q4H PRN PRN PRN Reason: COUGH Last Admin: 09/17/20 20:48 Dose: 10 ml Documented by: Sodium Chloride () 250 mls @ 15 mls/hr IV .[id number] PRN PRN Reason: Saline Flush Last Infusion: 09/18/20 02:31 Dose: 0 mls/hr Documented by: Sodium Chloride () 250 mls @ 15 mls/hr IV .[id number] PRN PRN Reason: Additional IVPB Infusion Lisinopril (Lisinopril 10 Mg Tablet) 10 mg PO DAILY [facility] Last Admin: 09/18/20 08:23 Dose: 10 mg Documented by: Melatonin (Melatonin 3 Mg Tablet) 3 mg PO QHS PRN PRN PRN Reason: INSOMNIA Ondansetron HCl (Ondansetron 4 Mg/2 Ml Vial) 4 mg IV Q8H PRN PRN PRN Reason: NAUSEA/VOMITING Sodium Chloride (0.9% Saline Lock 10 Ml Syringe) 10 - 40 ml IV UD PRN PRN Reason: SALINE FLUSH Last Admin: 09/18/20 10:00 Dose: 10 ml Documented by: Sodium Chloride (Sodium Chloride 0.65% 1 [place].Btl) 2 spray NASAL TID PRN PRN PRN Reason: NASAL DRYNESS Last Admin: 09/18/20 02:31 Dose: 2 spray Documented by: STROKE Vital Signs/Narrative: Vital Signs Temp Pulse Resp BP Pulse Ox 09/18/20 09:18 99 09/18/20 08:27 98.4 F 96 20 H 145/88 H 97 Medical Necessity - Tobacco Use Smoking Status: Never smoker Assessment/Plan All Active Problems (Last Reviewed 09/14/20 @ 05:[address] Frantz Dupont MD) SARS (severe acute respiratory syndrome) (Acute) COVID-19 (Acute) 1. Acute hypoxic respiratory failure secondary to COVID-19 pneumonia -CTA of her chest was negative for PEs -Given the positive Covid test, no need for antibiotics at this time -Continue with Decadron -Appreciate pulmonology and ID assistance -Continue with remdesivir, and she received convalescent plasma on 08/15/2020 -Had to be placed on BiPAP 09/16/2020 2. HTN -Blood pressure stable, continue with lisinopril DVT: Lovenox Inpatient E&M: [id number] Subs Hosp L2
[2020-09-18] MEDS: guaiFENesin 10 ML UDC (200MG/10ML) PO (22:07)
[2020-09-19] VITALS (15 sets, daily range): BP systolic 135–159; BP diastolic 67–79; PULSE 76–97; RESP 12–28; TEMP 36.3–36.9; O2SAT 91–95
[2020-09-19] MEDS: guaiFENesin 10 ML UDC (200MG/10ML) PO ×2 (03:36→20:15)
[2020-09-19] MEDS: Sodium Chloride 0.65% 1 SPRAY SPRAY.BTL 2 SPRAY NASAL ×2 (03:43→20:13)
[2020-09-19 05:46] LABS: Hematocrit 39.8 % (37-47); Hemoglobin 12.4 g/dL (12.0-15.0); Mean Corp Hgb Conc 31.2 g/dL (32-36); Mean Corpuscular Hgb 28.8 pg (27.0-32.0); Mean Corpuscular Volume 92.6 fL (81-99); Mean Platelet Vol. 8.8 fl (6.2-12.0); Platelet Count 471 K/mm3 (150-450); RBC Distribution Width CV 13.3 % (11.6-14.6); RBC Distribution Width SD 45.7 fl (35.1-43.9); White Blood Count 16.5 K/mm3 (4.4-11.0)
[2020-09-19 06:14] LABS: ALB/GLOB Ratio 0.6 RATIO (0.9-2.4); AST(SGOT) 13 U/L (15-37); Alanine Aminotransfer ALT/SGPT 25 U/L (13-56); Albumin, Serum 2.3 g/dL (3.2-5.0); Alkaline Phosphatase 79 U/L (45-117); Anion Gap 5 (5-15); BUN 16 mg/dL (7-18); BUN/Creat Ratio 27.2 RATIO (10-20); Chloride 103 mmol/L (98-107); Creatinine, Serum 0.59 mg/dL (0.55-1.02); EST Glomerular Filtration Rate 110 mL/min (>60); Est Glom Filt Rate - Afr Amer 133 mL/min (>60); Estimated Creatinine Clearance 103.32 ml/min; Globulin 3.6 g/dL (2.2-4.2); Glucose 95 mg/dL (74-106); Potassium 4.3 mmol/L (3.5-5.1); Protein, Total 5.9 g/dL (6.4-8.2); Sodium Level 137 mmol/L (136-145)
--- NOTE | 2020-09-19 08:07 | PCM.PN.PUL ---
Patient Problems: Active and Suspected Problems (Last Reviewed 09/14/20 @ 05:[address] Frantz Dupont MD) SARS (severe acute respiratory syndrome) (Acute) COVID-19 (Acute) Subjective: The patient was seen and examined at the bedside this morning. Events from the last 24 hours have been reviewed. The patient is currently afebrile, hemodynamically stable and maintaining appropriate oxygen saturations on BiPAP with an FiO2 requirement of 45%. The patient has already received convalescent plasma and has completed a treatment course of remdesivir. She remains on scheduled Decadron daily. Objective: The patient's most recent lab work, culture data and imaging studies have all been personally reviewed. Coronavirus PCR was positive on September 13. - Physical Exam Vitals/I&O's: Vital Signs Temp Pulse Resp BP Pulse Ox 98.3 F 93 20 H 159/78 H 91 09/19/20 03:34 09/19/20 03:50 09/19/20 03:50 09/19/20 03:34 09/19/20 03:50 Oxygen Flow Rate (L/min) 60 Oxygen Delivery Method Bi-pap Weight: 248 lb 7.375 oz Body Mass Index (BMI) 36.6 Intake and Output for Last 24 Hours 09/17/20 09/18/20 09/19/20 23:59 23:59 23:59 Intake Total 650.25 / 650.25 918.0 / 918.0 Output Total 400 / 400 800 / 800 250 / 250 Balance 250.25 / 250.25 118.0 / 118.0 -250 / -250 General: Alert, Cooperative, No apparent distress HEENT: Atraumatic, Normocephalic Oral: Moist Mucosa, No Gingival or Mucosal Lesions/ Ulcerations Neck: Supple, No Nodes, Trachea Midline Lungs: Diminished Cardiovascular: Regular rate, Regular Rhythm, Normal S1, Normal S2, No murmurs Abdomen: Bowel Sounds Present, Soft, Non Tender, Obese Extremities: No clubbing, No cyanosis, No edema Skin: No breakdown Musculoskeletal: No Tenderness to Palpation of Joints or Extremities Lymphatic: No Cervical, Supraclavicular, or Inguinal Adenopathy Neurological: Cranial nerves II-XII grossly intact, Neuro grossly intact Psych/Mental Status: Normal Affect, Appropriate Labs (Last 48 Hours) 11/14/20 11/14/20 11/15/20 10:10 10:10 05:14 WBC 13.2 H 13.8 H RBC 4.61 4.46 Hgb 13.5 12.7 Hct 43.4 42.0 MCV 94.1 94.2 MCH 29.3 28.5 MCHC 31.1 L 30.2 L RDW Std Deviation 47.7 H 47.6 H RDW Coeff of Cara 13.8 13.5 Plt Count 486 H 501 H MPV 9.2 8.8 Sodium 137 Potassium 3.6 Chloride 101 Carbon Dioxide 28.0 Anion Gap 8 BUN 22 H Creatinine 0.82 Estim Creat Clear Calc 74.34 Est GFR (MDRD) Af Amer 91 Est GFR (MDRD) Non-Af 76 BUN/Creatinine Ratio 27.0 H Glucose 152 H Calcium 8.6 Total Bilirubin 0.40 AST 19 ALT 37 Alkaline Phosphatase 98 Total Protein 7.3 Albumin 2.6 L Globulin 4.7 H Albumin/Globulin Ratio 0.6 L 09/18/20 09/19/20 09/19/20 05:14 05:30 05:30 WBC 16.5 H RBC 4.30 Hgb 12.4 Hct 39.8 MCV 92.6 MCH 28.8 MCHC 31.2 L RDW Std Deviation 45.7 H RDW Coeff of Cara 13.3 Plt Count 471 H MPV 8.8 Sodium 139 137 Potassium 3.9 4.3 Chloride 103 103 Carbon Dioxide 30.0 29.0 Anion Gap 6 5 BUN 20 H 16 Creatinine 0.63 0.59 Estim Creat Clear Calc 96.76 103.32 Est GFR (MDRD) Af Amer 124 133 Est GFR (MDRD) Non-Af 102 110 BUN/Creatinine Ratio 31.9 H 27.2 H Glucose 94 95 Calcium 8.4 L 8.0 L Total Bilirubin 0.40 0.40 AST 15 13 L ALT 32 25 Alkaline Phosphatase 85 79 Total Protein 6.8 5.9 L Albumin 2.4 L 2.3 L Globulin 4.4 H 3.6 Albumin/Globulin Ratio 0.5 L 0.6 L Clinical Impression(s) from Imaging Studies Chest X-Ray 09/13/20 20:30 IMPRESSION: Findings suspicious for Covid 19 pneumonia. Clinical correlation recommended Electronically Signed: Abner Xie MD at 20:54 EST , Service support , Chest CTA 09/13/20 20:52 IMPRESSION: Diffuse bilateral mixed interstitial and alveolar infiltrates within the upper and lower lobes bilaterally. Covid 19 pneumonia not excluded. No evidence for pulmonary embolus Electronically Signed: Abner Xie MD at 22:06 EST , Service support , Current Medications Acetaminophen (Acetaminophen 325 Mg Tablet) 650 mg PO Q6H PRN PRN PRN Reason: Pain Score 1-10/Temp > 100.7 F Last Admin: 09/14/20 22:38 Dose: 650 mg Documented by: Albuterol Sulfate (Albuterol Ih 8.5 Gm (Proair) Inhaler (200 Puffs)) 2 puff INHALATION Q4H PRN PRN PRN Reason: sob/wheezing Last Admin: 09/16/20 04:26 Dose: 2 puff Documented by: Dexamethasone (Dexamethasone 4 Mg Tablet) 6 mg PO DAILY@0800 [facility] Last Admin: 09/18/20 08:23 Dose: 6 mg Documented by: Enoxaparin Sodium (Enoxaparin 30 Mg/0.3 Ml Syringe) 30 mg SC BID [facility] Last Admin: 09/18/20 20:03 Dose: 30 mg Documented by: Guaifenesin (Guaifenesin 10 Ml Udc (200mg/10ml)) 10 ml PO Q4H PRN PRN PRN Reason: COUGH Last Admin: 09/19/20 03:36 Dose: 10 ml Documented by: Sodium Chloride () 250 mls @ 15 mls/hr IV .[id number] PRN PRN Reason: Saline Flush Last Infusion: 09/18/20 19:34 Dose: Infused Documented by: Sodium Chloride () 250 mls @ 15 mls/hr IV .[id number] PRN PRN Reason: Additional IVPB Infusion Lisinopril (Lisinopril 10 Mg Tablet) 10 mg PO DAILY [facility] Last Admin: 09/18/20 08:23 Dose: 10 mg Documented by: Melatonin (Melatonin 3 Mg Tablet) 3 mg PO QHS PRN PRN PRN Reason: INSOMNIA Ondansetron HCl (Ondansetron 4 Mg/2 Ml Vial) 4 mg IV Q8H PRN PRN PRN Reason: NAUSEA/VOMITING Sodium Chloride (0.9% Saline Lock 10 Ml Syringe) 10 - 40 ml IV UD PRN PRN Reason: SALINE FLUSH Last Admin: 09/18/20 10:00 Dose: 10 ml Documented by: Sodium Chloride (Sodium Chloride 0.65% 1 [place].Btl) 2 spray NASAL TID PRN PRN PRN Reason: NASAL DRYNESS Last Admin: 09/19/20 03:43 Dose: 2 spray Documented by: Medical Necessity - Tobacco Use Smoking Status: Never smoker Assessment/Plan All Active Problems (Last Reviewed 09/14/20 @ 05:[address] Frantz Dupont MD) SARS (severe acute respiratory syndrome) (Acute) COVID-19 (Acute) RECOMMENDATIONS: 1. Continue with Decadron and Lovenox. 2. Continue BiPAP/Airvo heated high flow oxygen and wean FiO2 to maintain saturations at or above 90%. 3. Encourage incentive spirometer use and mobilize patient as tolerated. 4. Attempt gentle diuresis today. IMPRESSIONS: 1. Acute hypoxic respiratory failure secondary to COVID-19 pneumonia The patient received convalescent plasma and has completed a treatment course of remdesivir. She will be continued on Decadron 6 mg daily to complete a 10-day treatment course. Continue Lovenox therapy as ordered as well. The patient will be continued on a combination of BiPAP and Airvo heated high flow oxygen to maintain saturations at or above 90%. Encourage incentive spirometer use and mobilize patient as tolerated. Will administer a trial of IV Lasix today. 2. Asthma/advanced age/obesity/multiple allergies Complicates care, management, recovery and prognosis. Continue home medications as indicated. This note was generated with [employer] dictation software. It may contain incorrect words, spelling, and punctuation that were not noted in checking the note before signing. Inpatient E&M: 54770 [facility] L3
--- NOTE | 2020-09-19 08:09 | PN_ITS ---
Patient Problems: Active and Suspected Problems (Last Reviewed 09/14/20 @ 05:[address] Frantz Dupont MD) SARS (severe acute respiratory syndrome) (Acute) COVID-19 (Acute) Reason for Visit: Acute hypoxic respiratory failure secondary to bilateral COVID-19 pneumonia Subjective: Patient on 45% FiO2, AIRVO. Was on BiPAP at night. Patient still has cough but her shortness of breath is getting better. Mild sputum production. No fever. Seen by ID and flight operations engineer. Physical exam Objective: On 45% FiO2. No fever or hypothermia in the last 48 hours. Was on AIRVO before Vitals/I&O's: Vital Signs Temp Pulse Resp BP Pulse Ox 98.3 F 93 20 H 159/78 H 91 09/19/20 03:34 09/19/20 03:50 09/19/20 03:50 09/19/20 03:34 09/19/20 03:50 Oxygen Flow Rate (L/min) 60 Oxygen Delivery Method Bi-pap Weight: 248 lb 7.375 oz Body Mass Index (BMI) 36.6 Intake and Output for Last 24 Hours 09/17/20 09/18/20 09/19/20 23:59 23:59 23:59 Intake Total 650.25 / 650.25 918.0 / 918.0 Output Total 400 / 400 800 / 800 250 / 250 Balance 250.25 / 250.25 118.0 / 118.0 -250 / -250 General: Alert, Oriented x3, Cooperative HEENT: Atraumatic, PERRLA, EOMI, Normocephalic Neck: Supple, No JVD, Negative Carotid Bruits Lungs: Diminished - Air entry diminished bilaterally, Rhonchi, Short of Breath Cardiovascular: Regular rate, Regular Rhythm, Normal S1, Normal S2, No murmurs Abdomen: Bowel Sounds Present, Soft, Non Tender, Non-Distended Extremities: No edema, Capillary Refill Less than 3 Seconds Skin: No rashes, No breakdown Musculoskeletal: No Tenderness to Palpation of Joints or Extremities, Arthritic Changes Neurological: Cranial nerves II-XII grossly intact, Deep Tendon Reflexes 2+/4 and Symmetrical, Neuro grossly intact Psych/Mental Status: Normal Affect, Appropriate Microbiology Past 72 Hours 09/13/20 20:15 Blood Culture (Wb) - Right Hand Blood Culture - Preliminary No growth in 48 hours. 09/13/20 20:13 Blood Culture (Wb) - Anticubital Right Blood Culture - Preliminary No growth in 48 hours. Laboratory Results 09/19/20 05:30: WBC 16.5 H, RBC 4.30, Hgb 12.4, Hct 39.8, MCV 92.6, MCH 28.8, MCHC 31.2 L, RDW Std Deviation 45.7 H, RDW Coeff of Cara 13.3, Plt Count 471 H, MPV 8.8 09/19/20 05:30: Sodium 137, Potassium 4.3, Chloride 103, Carbon Dioxide 29.0, Anion Gap 5, BUN 16, Creatinine 0.59, Estim Creat Clear Calc 103.32, Est GFR (MDRD) Af Amer 133, Est GFR (MDRD) Non-Af 110, BUN/Creatinine Ratio 27.2 H, Glucose 95, Calcium 8.0 L, Total Bilirubin 0.40, AST 13 L, ALT 25, Alkaline Phosphatase 79, Total Protein 5.9 L, Albumin 2.3 L, Globulin 3.6, Albumin/Globulin Ratio 0.6 L Current Medications Acetaminophen (Acetaminophen 325 Mg Tablet) 650 mg PO Q6H PRN PRN PRN Reason: Pain Score 1-10/Temp > 100.7 F Last Admin: 09/14/20 22:38 Dose: 650 mg Documented by: Albuterol Sulfate (Albuterol Ih 8.5 Gm (Proair) Inhaler (200 Puffs)) 2 puff INHALATION Q4H PRN PRN PRN Reason: sob/wheezing Last Admin: 09/16/20 04:26 Dose: 2 puff Documented by: Dexamethasone (Dexamethasone 4 Mg Tablet) 6 mg PO DAILY@0800 [facility] Last Admin: 09/18/20 08:23 Dose: 6 mg Documented by: Enoxaparin Sodium (Enoxaparin 30 Mg/0.3 Ml Syringe) 30 mg SC BID [facility] Last Admin: 09/18/20 20:03 Dose: 30 mg Documented by: Guaifenesin (Guaifenesin 10 Ml Udc (200mg/10ml)) 10 ml PO Q4H PRN PRN PRN Reason: COUGH Last Admin: 09/19/20 03:36 Dose: 10 ml Documented by: Sodium Chloride () 250 mls @ 15 mls/hr IV .[id number] PRN PRN Reason: Saline Flush Last Infusion: 09/18/20 19:34 Dose: Infused Documented by: Sodium Chloride () 250 mls @ 15 mls/hr IV .[id number] PRN PRN Reason: Additional IVPB Infusion Lisinopril (Lisinopril 10 Mg Tablet) 10 mg PO DAILY [facility] Last Admin: 09/18/20 08:23 Dose: 10 mg Documented by: Melatonin (Melatonin 3 Mg Tablet) 3 mg PO QHS PRN PRN PRN Reason: INSOMNIA Ondansetron HCl (Ondansetron 4 Mg/2 Ml Vial) 4 mg IV Q8H PRN PRN PRN Reason: NAUSEA/VOMITING Sodium Chloride (0.9% Saline Lock 10 Ml Syringe) 10 - 40 ml IV UD PRN PRN Reason: SALINE FLUSH Last Admin: 09/18/20 10:00 Dose: 10 ml Documented by: Sodium Chloride (Sodium Chloride 0.65% 1 [place].Btl) 2 spray NASAL TID PRN PRN PRN Reason: NASAL DRYNESS Last Admin: 09/19/20 03:43 Dose: 2 spray Documented by: Medical Necessity - Tobacco Use Smoking Status: Never smoker Assessment/Plan All Active Problems (Last Reviewed 09/14/20 @ 05:[address] Frantz Dupont MD) SARS (severe acute respiratory syndrome) (Acute) COVID-19 (Acute) This is a 60-year-old female admitted with acute hypoxic respiratory failure secondary to COVID-19 pneumonia 1. Acute hypoxic respiratory failure secondary to COVID-19 pneumonia: Blood culture negative for 5 days. Patient still has leukocytosis 16.5 thousand. Platelet count 471,000. Albumin 2.3. -CTA of her chest was negative for PEs. Continue Decadron. No need for antibiotic -Continue with Decadron -Appreciate pulmonology and ID follow-up. -Continue with remdesivir, and she received convalescent plasma on 08/15/2020 - on BiPAP 09/16/2020 2. HTN -Blood pressure stable, continue with lisinopril DVT: Lovenox Clinical Impression(s) from Imaging Studies Chest X-Ray 09/13/20 20:30 IMPRESSION: Findings suspicious for Covid 19 pneumonia. Clinical correlation recommended Chest CTA 09/13/20 20:52 IMPRESSION: Diffuse bilateral mixed interstitial and alveolar infiltrates within the upper and lower lobes bilaterally. Covid 19 pneumonia not excluded. No evidence for pulmonary embolus Microbiology Past 72 Hours 09/13/20 20:15 Blood Culture (Wb) - Right Hand Blood Culture - Final No growth in 5 days. 09/13/20 20:13 Blood Culture (Wb) - Anticubital Right Blood Culture - Final No growth in 5 days. Laboratory Results 09/19/20 05:30: WBC 16.5 H, RBC 4.30, Hgb 12.4, Hct 39.8, MCV 92.6, MCH 28.8, MCHC 31.2 L, RDW Std Deviation 45.7 H, RDW Coeff of Cara 13.3, Plt Count 471 H, MPV 8.8 09/19/20 05:30: Sodium 137, Potassium 4.3, Chloride 103, Carbon Dioxide 29.0, Anion Gap 5, BUN 16, Creatinine 0.59, Estim Creat Clear Calc 103.32, Est GFR (MDRD) Af Amer 133, Est GFR (MDRD) Non-Af 110, BUN/Creatinine Ratio 27.2 H, Glucose 95, Calcium 8.0 L, Total Bilirubin 0.40, AST 13 L, ALT 25, Alkaline Phosphatase 79, Total Protein 5.9 L, Albumin 2.3 L, Globulin 3.6, Albumin/Globulin Ratio 0.6 L Inpatient E&M: 25637 [facility]s Hosp L2
[2020-09-19] MEDS: Enoxaparin 30 MG/0.3 ML Syringe SC (08:27)
[2020-09-19] MEDS: Lisinopril 10 MG Tablet PO (08:27)
[2020-09-19] MEDS: dexAMETHasone 4 MG Tablet 6 MG PO (08:27)
--- NOTE | 2020-09-19 13:04 | PN.ID_ITS ---
Patient Problems: Active and Suspected Problems (Last Reviewed 09/14/20 @ 05:[address] Frantz Dupont MD) SARS (severe acute respiratory syndrome) (Acute) COVID-19 (Acute) Subjective: Today is the first day she doesn't feel like she is going to from this. Overall improved, some cough still, no n/v/d. - Physical Exam Vitals/I&O's: Vital Signs Temp Pulse Resp BP Pulse Ox 98.1 F 88 18 144/79 H 94 09/19/20 08:19 09/19/20 08:19 09/19/20 08:19 09/19/20 08:19 09/19/20 08:19 Oxygen Flow Rate (L/min) 60 Oxygen Delivery Method Airvo Weight: 112.7 kg Body Mass Index (BMI) 36.6 Intake and Output for Last 24 Hours 09/17/20 09/18/20 09/19/20 23:59 23:59 23:59 Intake Total 650.25 / 650.25 918.0 / 918.0 Output Total 400 / 400 800 / 800 250 / 250 Balance 250.25 / 250.25 118.0 / 118.0 -250 / -250 General: Alert, Cooperative, No apparent distress Lungs: Clear to auscultation, Diminished Cardiovascular: Regular rate, Regular Rhythm Abdomen: Soft, Non Tender, Non-Distended Skin: No rashes Microbiology Past 72 Hours 09/13/20 20:15 Blood Culture (Wb) - Right Hand Blood Culture - Final No growth in 5 days. 09/13/20 20:13 Blood Culture (Wb) - Anticubital Right Blood Culture - Final No growth in 5 days. Laboratory Results 09/19/20 05:30: WBC 16.5 H, RBC 4.30, Hgb 12.4, Hct 39.8, MCV 92.6, MCH 28.8, MCHC 31.2 L, RDW Std Deviation 45.7 H, RDW Coeff of Cara 13.3, Plt Count 471 H, MPV 8.8 09/19/20 05:30: Sodium 137, Potassium 4.3, Chloride 103, Carbon Dioxide 29.0, Anion Gap 5, BUN 16, Creatinine 0.59, Estim Creat Clear Calc 103.32, Est GFR (MDRD) Af Amer 133, Est GFR (MDRD) Non-Af 110, BUN/Creatinine Ratio 27.2 H, Glucose 95, Calcium 8.0 L, Total Bilirubin 0.40, AST 13 L, ALT 25, Alkaline Phosphatase 79, Total Protein 5.9 L, Albumin 2.3 L, Globulin 3.6, Albumin/Globulin Ratio 0.6 L Current Medications Acetaminophen (Acetaminophen 325 Mg Tablet) 650 mg PO Q6H PRN PRN PRN Reason: Pain Score 1-10/Temp > 100.7 F Last Admin: 09/14/20 22:38 Dose: 650 mg Documented by: Albuterol Sulfate (Albuterol Ih 8.5 Gm (Proair) Inhaler (200 Puffs)) 2 puff INHALATION Q4H PRN PRN PRN Reason: sob/wheezing Last Admin: 09/16/20 04:26 Dose: 2 puff Documented by: Dexamethasone (Dexamethasone 4 Mg Tablet) 6 mg PO DAILY@0800 [facility] Last Admin: 09/19/20 08:27 Dose: 6 mg Documented by: Enoxaparin Sodium (Enoxaparin 30 Mg/0.3 Ml Syringe) 40 mg SC BID [facility] Guaifenesin (Guaifenesin 10 Ml Udc (200mg/10ml)) 10 ml PO Q4H PRN PRN PRN Reason: COUGH Last Admin: 09/19/20 03:36 Dose: 10 ml Documented by: Sodium Chloride () 250 mls @ 15 mls/hr IV .[id number] PRN PRN Reason: Saline Flush Last Infusion: 09/18/20 19:34 Dose: Infused Documented by: Sodium Chloride () 250 mls @ 15 mls/hr IV .[id number] PRN PRN Reason: Additional IVPB Infusion Lisinopril (Lisinopril 10 Mg Tablet) 10 mg PO DAILY [facility] Last Admin: 09/19/20 08:27 Dose: 10 mg Documented by: Melatonin (Melatonin 3 Mg Tablet) 3 mg PO QHS PRN PRN PRN Reason: INSOMNIA Ondansetron HCl (Ondansetron 4 Mg/2 Ml Vial) 4 mg IV Q8H PRN PRN PRN Reason: NAUSEA/VOMITING Sodium Chloride (0.9% Saline Lock 10 Ml Syringe) 10 - 40 ml IV UD PRN PRN Reason: SALINE FLUSH Last Admin: 09/18/20 10:00 Dose: 10 ml Documented by: Sodium Chloride (Sodium Chloride 0.65% 1 [place].Btl) 2 spray NASAL TID PRN PRN PRN Reason: NASAL DRYNESS Last Admin: 09/19/20 03:43 Dose: 2 spray Documented by: Medical Necessity - Tobacco Use Smoking Status: Never smoker Route of nutrition/ use of supplements: [] Nutritional Intake: [] IV Site: [] Massey Catheter: [] - Assessment/Plan Antibiotics: [] Assessment/Plan: [] Active and Suspected Problems (Last Reviewed 09/14/20 @ 05:[address] Frantz Dupont MD) SARS (severe acute respiratory syndrome) (Acute) COVID-19 (Acute) covid with hypoxia - on dex, lovenox 30mg bid. On airvo this AM. Completed remdesivir. Got plasma 09/15/20. Overall much improved. Ok for discharge home once O2 is stable to complete 10 days total of dex. Will follow
[2020-09-19] MEDS: Furosemide 40 MG/4 ML Vial IV (13:35)
[2020-09-19] MEDS: 0.9% Saline Lock 10 ML Syringe IV ×2 (13:35→20:15)
[2020-09-19] MEDS: Enoxaparin 40 MG/0.4 ML Syringe SC (20:14)
[2020-09-20] VITALS (17 sets, daily range): BP systolic 119–143; BP diastolic 71–87; PULSE 66–106; RESP 12–26; TEMP 36.1–36.4; O2SAT 91–100
[2020-09-20] MEDS: Sodium Chloride 0.65% 1 SPRAY SPRAY.BTL 2 SPRAY NASAL (02:36)
[2020-09-20 07:19] LABS: Absolute Lymphocyte Count 2.09 X10^3/uL (0.83-4.51); Absolute Neutrophil Count 10.7 X10^3/uL (2.0-7.7); Basophil# 0.04 X10^3/uL; Basophil% 0.3 % (0-1); Eosinophil# 0.07 X10^3/uL; Eosinophils% 0.5 % (0-5); Hematocrit 43.3 % (37-47); Lymphocyte # 2.09 X10^3/ul (4.0); Lymphocyte % 14.5 % (19-41); Mean Corp Hgb Conc 32.3 g/dL (32-36); Mean Corpuscular Volume 92.9 fL (81-99); Mean Platelet Vol. 9.2 fl (6.2-12.0); Monocyte# 0.89 X10^3/uL; Monocyte% 6.2 % (0-10); NRBC Flagged by Analyzer 0 % (0-5); Neutrophil # 10.73 X10^3/uL (2.7-7.7); Neutrophil % 74.5 % (47-70); Platelet Count 556 K/mm3 (150-450); RBC Distribution Width CV 13.3 % (11.6-14.6); RBC Distribution Width SD 45.2 fl (35.1-43.9); Red Blood Count 4.66 M/mm3 (4.2-5.4); White Blood Count 14.4 K/mm3 (4.4-11.0)
[2020-09-20] MEDS: Lisinopril 10 MG Tablet PO (07:54)
[2020-09-20] MEDS: dexAMETHasone 4 MG Tablet 6 MG PO (07:54)
[2020-09-20 07:55] LABS: ALB/GLOB Ratio 0.6 RATIO (0.9-2.4); AST(SGOT) 13 U/L (15-37); Alanine Aminotransfer ALT/SGPT 27 U/L (13-56); Albumin, Serum 2.5 g/dL (3.2-5.0); Alkaline Phosphatase 86 U/L (45-117); Anion Gap 6 (5-15); BUN 18 mg/dL (7-18); BUN/Creat Ratio 25.8 RATIO (10-20); Calcium,Total 8.7 mg/dL (8.5-10.1); Chloride 98 mmol/L (98-107); EST Glomerular Filtration Rate 90 mL/min (>60); Est Glom Filt Rate - Afr Amer 109 mL/min (>60); Estimated Creatinine Clearance 87.08 ml/min; Globulin 4.4 g/dL (2.2-4.2); Glucose 117 mg/dL (74-106); Magnesium 2.2 mg/dL (1.6-2.6); Potassium 3.6 mmol/L (3.5-5.1); Protein, Total 6.9 g/dL (6.4-8.2); Sodium Level 135 mmol/L (136-145)
[2020-09-20] MEDS: Enoxaparin 40 MG/0.4 ML Syringe SC ×2 (07:55→21:27)
--- NOTE | 2020-09-20 08:42 | PCM.PN.PUL ---
Patient Problems: Active and Suspected Problems (Last Reviewed 09/14/20 @ 05:[address] Frantz Dupont MD) SARS (severe acute respiratory syndrome) (Acute) COVID-19 (Acute) Subjective: The patient was seen and examined at the bedside this morning. Events from the last 24 hours have been reviewed. The patient is currently afebrile, hemodynamically stable and maintaining appropriate oxygen saturations on Airvo heated high flow with an FiO2 requirement of 82% and flow rate of 60 L/min. The patient has already received convalescent plasma and has completed a treatment course of remdesivir. She remains on scheduled Decadron daily. The patient reports feeling infinitely better this morning. Objective: The patient's most recent lab work, culture data and imaging studies have all been personally reviewed. Coronavirus PCR was positive on September 13. - Physical Exam Vitals/I&O's: Vital Signs Temp Pulse Resp BP Pulse Ox 97.0 F L 100 20 H 141/78 H 94 09/20/20 07:42 09/20/20 07:42 09/20/20 07:42 09/20/20 07:42 09/20/20 07:42 Oxygen Flow Rate (L/min) 60 Oxygen Delivery Method Airvo Weight: 248 lb 7.375 oz Body Mass Index (BMI) 36.6 Intake and Output for Last 24 Hours 09/18/20 09/19/20 09/20/20 23:59 23:59 23:59 Intake Total 918.0 / 1418.0 500 / 500 Output Total 800 / 800 250 / 250 Balance 118.0 / 618.0 250 / 250 General: Alert, Oriented x3, Cooperative, No apparent distress, - - Sitting in bedside recliner HEENT: Atraumatic, PERRLA, Normocephalic Oral: No Gingival or Mucosal Lesions/ Ulcerations Neck: Supple, No Nodes, Trachea Midline Lungs: No rhonchi, No wheeze, No rales, Diminished Cardiovascular: Regular rate, Regular Rhythm Abdomen: Bowel Sounds Present, Soft, Non Tender, Obese Extremities: No clubbing, No cyanosis, No edema Skin: No breakdown Musculoskeletal: No Tenderness to Palpation of Joints or Extremities, No Muscle Wasting Lymphatic: No Cervical, Supraclavicular, or Inguinal Adenopathy Neurological: Cranial nerves II-XII grossly intact, Neuro grossly intact Psych/Mental Status: Alert and oriented to time, place, person, mood and affect Labs (Last 48 Hours) 09/19/20 09/19/20 09/20/20 05:30 05:30 05:50 WBC 16.5 H 14.4 H RBC 4.30 4.66 Hgb 12.4 14.0 Hct 39.8 43.3 MCV 92.6 92.9 MCH 28.8 30.0 MCHC 31.2 L 32.3 RDW Std Deviation 45.7 H 45.2 H RDW Coeff of Cara 13.3 13.3 Plt Count 471 H 556 H MPV 8.8 9.2 Immature Gran % (Auto) 4.000 H Neut % (Auto) 74.5 H Lymph % (Auto) 14.5 L [place] % (Auto) 6.2 Eos % (Auto) 0.5 Baso % (Auto) 0.3 Absolute Neuts (auto) 10.7 H Absolute Lymphs (auto) 2.09 Nucleated RBC % 0 Sodium 137 Potassium 4.3 Chloride 103 Carbon Dioxide 29.0 Anion Gap 5 BUN 16 Creatinine 0.59 Estim Creat Clear Calc 103.32 Est GFR (MDRD) Af Amer 133 Est GFR (MDRD) Non-Af 110 BUN/Creatinine Ratio 27.2 H Glucose 95 Calcium 8.0 L Magnesium Total Bilirubin 0.40 AST 13 L ALT 25 Alkaline Phosphatase 79 Total Protein 5.9 L Albumin 2.3 L Globulin 3.6 Albumin/Globulin Ratio 0.6 L 09/20/20 05:50 WBC RBC Hgb Hct MCV MCH MCHC RDW Std Deviation RDW Coeff of Cara Plt Count MPV Immature Gran % (Auto) Neut % (Auto) Lymph % (Auto) [place] % (Auto) Eos % (Auto) Baso % (Auto) Absolute Neuts (auto) Absolute Lymphs (auto) Nucleated RBC % Sodium 135 L Potassium 3.6 Chloride 98 Carbon Dioxide 31.0 Anion Gap 6 BUN 18 Creatinine 0.70 Estim Creat Clear Calc 87.08 Est GFR (MDRD) Af Amer 109 Est GFR (MDRD) Non-Af 90 BUN/Creatinine Ratio 25.8 H Glucose 117 H Calcium 8.7 Magnesium 2.2 Total Bilirubin 0.40 AST 13 L ALT 27 Alkaline Phosphatase 86 Total Protein 6.9 Albumin 2.5 L Globulin 4.4 H Albumin/Globulin Ratio 0.6 L Microbiology 09/13/20 20:15 Blood Culture (Wb) - Right Hand Blood Culture - Final No growth in 5 days. 09/13/20 20:13 Blood Culture (Wb) - Anticubital Right Blood Culture - Final No growth in 5 days. Clinical Impression(s) from Imaging Studies Chest X-Ray 09/13/20 20:30 IMPRESSION: Findings suspicious for Covid 19 pneumonia. Clinical correlation recommended Electronically Signed: Abner Xie MD at 20:54 EST , Service support , Chest CTA 09/13/20 20:52 IMPRESSION: Diffuse bilateral mixed interstitial and alveolar infiltrates within the upper and lower lobes bilaterally. Covid 19 pneumonia not excluded. No evidence for pulmonary embolus Electronically Signed: Abner Xie MD at 22:06 EST , Service support , Current Medications Acetaminophen (Acetaminophen 325 Mg Tablet) 650 mg PO Q6H PRN PRN PRN Reason: Pain Score 1-10/Temp > 100.7 F Last Admin: 09/14/20 22:38 Dose: 650 mg Documented by: Albuterol Sulfate (Albuterol Ih 8.5 Gm (Proair) Inhaler (200 Puffs)) 2 puff INHALATION Q4H PRN PRN PRN Reason: sob/wheezing Last Admin: 09/16/20 04:26 Dose: 2 puff Documented by: Dexamethasone (Dexamethasone 4 Mg Tablet) 6 mg PO DAILY@0800 [facility] Last Admin: 09/20/20 07:54 Dose: 6 mg Documented by: Enoxaparin Sodium (Enoxaparin 40 Mg/0.4 Ml Syringe) 40 mg SC BID [facility] Last Admin: 09/20/20 07:55 Dose: 40 mg Documented by: Guaifenesin (Guaifenesin 10 Ml Udc (200mg/10ml)) 10 ml PO Q4H PRN PRN PRN Reason: COUGH Last Admin: 09/19/20 20:15 Dose: 10 ml Documented by: Sodium Chloride () 250 mls @ 15 mls/hr IV .[id number] PRN PRN Reason: Saline Flush Last Infusion: 09/18/20 19:34 Dose: Infused Documented by: Sodium Chloride () 250 mls @ 15 mls/hr IV .[id number] PRN PRN Reason: Additional IVPB Infusion Lisinopril (Lisinopril 10 Mg Tablet) 10 mg PO DAILY CAT Last Admin: 09/20/20 07:54 Dose: 10 mg Documented by: Melatonin (Melatonin 3 Mg Tablet) 3 mg PO QHS PRN PRN PRN Reason: INSOMNIA Ondansetron HCl (Ondansetron 4 Mg/2 Ml Vial) 4 mg IV Q8H PRN PRN PRN Reason: NAUSEA/VOMITING Sodium Chloride (0.9% Saline Lock 10 Ml Syringe) 10 - 40 ml IV UD PRN PRN Reason: SALINE FLUSH Last Admin: 09/19/20 20:15 Dose: 10 ml Documented by: Sodium Chloride (Sodium Chloride 0.65% 1 [place].Btl) 2 spray NASAL TID PRN PRN PRN Reason: NASAL DRYNESS Last Admin: 09/20/20 02:36 Dose: 2 spray Documented by: Medical Necessity - Tobacco Use Smoking Status: Never smoker Assessment/Plan All Active Problems (Last Reviewed 09/14/20 @ 05:[address] Frantz Dupont MD) SARS (severe acute respiratory syndrome) (Acute) COVID-19 (Acute) RECOMMENDATIONS: 1. Continue with Decadron and Lovenox. 2. Continue BiPAP/Airvo heated high flow oxygen and wean FiO2 to maintain saturations at or above 90%. 3. Encourage incentive spirometer use and mobilize patient as tolerated. 4. Continue attempts at gentle diuresis as tolerated by hemodynamics and renal function. IMPRESSIONS: 1. Acute hypoxic respiratory failure secondary to COVID-19 pneumonia The patient received convalescent plasma and has completed a treatment course of remdesivir. She will be continued on Decadron 6 mg daily to complete a 10-day treatment course. Continue Lovenox therapy as ordered as well. The patient will be continued on a combination of BiPAP and Airvo heated high flow oxygen to maintain saturations at or above 90%. Encourage incentive spirometer use and mobilize patient as tolerated. Continue Lasix. 2. Asthma/advanced age/obesity/multiple allergies Complicates care, management, recovery and prognosis. Continue home medications as indicated. This note was generated with [employer] software. It may contain incorrect words, spelling, and punctuation that were not noted in checking the note before signing. Inpatient E&M: 03740 Subs Hosp L2
[2020-09-20] MEDS: 0.9% Saline Lock 10 ML Syringe IV ×2 (09:50→21:27)
[2020-09-20] MEDS: Furosemide 40 MG/4 ML Vial IV (09:51)
--- NOTE | 2020-09-20 11:20 | PCM.PN.HOSP ---
Patient Problems: Active and Suspected Problems (Last Reviewed 09/14/20 @ 05:[address] Frantz Dupont MD) SARS (severe acute respiratory syndrome) (Acute) COVID-19 (Acute) Reason for Visit: Follow-up for acute hypoxic respiratory failure secondary to COVID-19 pneumonia Objective: No fever or chills. Heart rate and blood pressure controlled. Physical exam General: Alert, Oriented x3, Cooperative HEENT: Atraumatic, PERRLA, EOMI, Normocephalic Oral: No Gingival or Mucosal Lesions/ Ulcerations Neck: Supple, No JVD, Negative Carotid Bruits Lungs: Air entry diminished in bilateral lung bases. No crepitation/rhonchi. Tachypneic and hypoxic. On 82% FiO2 at 60 mils per hour AIRVO Cardiovascular: Regular rate, Regular Rhythm, Normal S1, Normal S2, No murmurs Abdomen: Bowel Sounds Present, Soft, Non Tender, Non-Distended : No renal angle tenderness. No suprapubic tenderness. Extremities: No edema, Capillary Refill Less than 3 Seconds Skin: No rashes, No breakdown Musculoskeletal: No Tenderness to Palpation of Joints or Extremities Neurological: Cranial nerves II-XII grossly intact, Deep Tendon Reflexes 2+/4 and Symmetrical, Neuro grossly intact Psych/Mental Status: Normal Affect, Appropriate. Vitals/I&O's: Vital Signs Temp Pulse Resp BP Pulse Ox 97.0 F L 100 20 H 141/78 H 94 09/20/20 07:42 09/20/20 07:42 09/20/20 07:42 09/20/20 07:42 09/20/20 07:42 Oxygen Flow Rate (L/min) 60 Oxygen Delivery Method Airvo Weight: 248 lb 7.375 oz Body Mass Index (BMI) 36.6 Intake and Output for Last 24 Hours 09/18/20 09/19/20 09/20/20 23:59 23:59 23:59 Intake Total 918.0 / 1418.0 500 / 500 Output Total 800 / 800 250 / 250 Balance 118.0 / 618.0 250 / 250 Microbiology Past 72 Hours 09/13/20 20:15 Blood Culture (Wb) - Right Hand Blood Culture - Final No growth in 5 days. 09/13/20 20:13 Blood Culture (Wb) - Anticubital Right Blood Culture - Final No growth in 5 days. Laboratory Results 09/20/20 05:50: WBC 14.4 H, RBC 4.66, Hgb 14.0, Hct 43.3, MCV 92.9, MCH 30.0, MCHC 32.3, RDW Std Deviation 45.2 H, RDW Coeff of Cara 13.3, Plt Count 556 H, MPV 9.2, Immature Gran % (Auto) 4.000 H, Neut % (Auto) 74.5 H, Lymph % (Auto) 14.5 L, [place] % (Auto) 6.2, Eos % (Auto) 0.5, Baso % (Auto) 0.3, Absolute Neuts (auto) 10.7 H, Absolute Lymphs (auto) 2.09, Nucleated RBC % 0 09/20/20 05:50: Sodium 135 L, Potassium 3.6, Chloride 98, Carbon Dioxide 31.0, Anion Gap 6, BUN 18, Creatinine 0.70, Estim Creat Clear Calc 87.08, Est GFR (MDRD) Af Amer 109, Est GFR (MDRD) Non-Af 90, BUN/Creatinine Ratio 25.8 H, Glucose 117 H, Calcium 8.7, Magnesium 2.2, Total Bilirubin 0.40, AST 13 L, ALT 27, Alkaline Phosphatase 86, Total Protein 6.9, Albumin 2.5 L, Globulin 4.4 H, Albumin/Globulin Ratio 0.6 L Current Medications Acetaminophen (Acetaminophen 325 Mg Tablet) 650 mg PO Q6H PRN PRN PRN Reason: Pain Score 1-10/Temp > 100.7 F Last Admin: 09/14/20 22:38 Dose: 650 mg Documented by: Albuterol Sulfate (Albuterol Ih 8.5 Gm (Proair) Inhaler (200 Puffs)) 2 puff INHALATION Q4H PRN PRN PRN Reason: sob/wheezing Last Admin: 09/16/20 04:26 Dose: 2 puff Documented by: Dexamethasone (Dexamethasone 4 Mg Tablet) 6 mg PO DAILY@0800 [facility] Last Admin: 09/20/20 07:54 Dose: 6 mg Documented by: Enoxaparin Sodium (Enoxaparin 40 Mg/0.4 Ml Syringe) 40 mg SC BID [facility] Last Admin: 09/20/20 07:55 Dose: 40 mg Documented by: Furosemide (Furosemide 40 Mg/4 Ml Vial) 40 mg IV DAILY [facility] Last Admin: 09/20/20 09:51 Dose: 40 mg Documented by: Guaifenesin (Guaifenesin 10 Ml Udc (200mg/10ml)) 10 ml PO Q4H PRN PRN PRN Reason: COUGH Last Admin: 09/19/20 20:15 Dose: 10 ml Documented by: Sodium Chloride () 250 mls @ 15 mls/hr IV .[id number] PRN PRN Reason: Saline Flush Last Infusion: 09/18/20 19:34 Dose: Infused Documented by: Sodium Chloride () 250 mls @ 15 mls/hr IV .[id number] PRN PRN Reason: Additional IVPB Infusion Lisinopril (Lisinopril 10 Mg Tablet) 10 mg PO DAILY [facility] Last Admin: 09/20/20 07:54 Dose: 10 mg Documented by: Melatonin (Melatonin 3 Mg Tablet) 3 mg PO QHS PRN PRN PRN Reason: INSOMNIA Ondansetron HCl (Ondansetron 4 Mg/2 Ml Vial) 4 mg IV Q8H PRN PRN PRN Reason: NAUSEA/VOMITING Sodium Chloride (0.9% Saline Lock 10 Ml Syringe) 10 - 40 ml IV UD PRN PRN Reason: SALINE FLUSH Last Admin: 09/20/20 09:50 Dose: 10 ml Documented by: Sodium Chloride (Sodium Chloride 0.65% 1 [place].Btl) 2 spray NASAL TID PRN PRN PRN Reason: NASAL DRYNESS Last Admin: 09/20/20 02:36 Dose: 2 spray Documented by: STROKE Vital Signs/Narrative: Vital Signs Temp Pulse Resp BP Pulse Ox 09/20/20 07:42 97.0 F L 100 20 H 141/78 H 94 Medical Necessity - Tobacco Use Smoking Status: Never smoker Assessment/Plan All Active Problems (Last Reviewed 09/14/20 @ 05:[address] Frantz Dupont MD) SARS (severe acute respiratory syndrome) (Acute) COVID-19 (Acute) This is a 60-year-old female admitted with acute hypoxic respiratory failure secondary to COVID-19 pneumonia 1. Acute hypoxic respiratory failure secondary to COVID-19 pneumonia: Blood culture negative for 5 days. Patient still has leukocytosis 16.5 thousand. Platelet count 471,000. Albumin 2.3. -CTA of her chest was negative for PEs. Continue Decadron. No need for antibiotic -Continue with Decadron -Appreciate pulmonology and ID follow-up. -Completed remdesivir, and she received convalescent plasma on 08/15/202009/20: On high flow AIR VO. Titrate oxygen to keep pulse ox 92%. On Decadron. Leukocytosis 14,000, ALC 2.0 thousand 2. HTN -Blood pressure stable, continue with lisinopril DVT: Lovenox Clinical Impression(s) from Imaging Studies Chest X-Ray 09/13/20 20:30 IMPRESSION: Findings suspicious for Covid 19 pneumonia. Clinical correlation recommended Chest CTA 09/13/20 20:52 IMPRESSION: Diffuse bilateral mixed interstitial and alveolar infiltrates within the upper and lower lobes bilaterally. Covid 19 pneumonia not excluded. No evidence for pulmonary embolus Microbiology Past 72 Hours 09/13/20 20:15 Blood Culture (Wb) - Right Hand Blood Culture - Final No growth in 5 days. 09/13/20 20:13 Blood Culture (Wb) - Anticubital Right Blood Culture - Final No growth in 5 days. Laboratory Results 09/20/20 05:50: WBC 14.4 H, RBC 4.66, Hgb 14.0, Hct 43.3, MCV 92.9, MCH 30.0, MCHC 32.3, RDW Std Deviation 45.2 H, RDW Coeff of Cara 13.3, Plt Count 556 H, MPV 9.2, Immature Gran % (Auto) 4.000 H, Neut % (Auto) 74.5 H, Lymph % (Auto) 14.5 L, [place] % (Auto) 6.2, Eos % (Auto) 0.5, Baso % (Auto) 0.3, Absolute Neuts (auto) 10.7 H, Absolute Lymphs (auto) 2.09, Nucleated RBC % 0 09/20/20 05:50: Sodium 135 L, Potassium 3.6, Chloride 98, Carbon Dioxide 31.0, Anion Gap 6, BUN 18, Creatinine 0.70, Estim Creat Clear Calc 87.08, Est GFR (MDRD) Af Amer 109, Est GFR (MDRD) Non-Af 90, BUN/Creatinine Ratio 25.8 H, Glucose 117 H, Calcium 8.7, Magnesium 2.2, Total Bilirubin 0.40, AST 13 L, ALT 27, Alkaline Phosphatase 86, Total Protein 6.9, Albumin 2.5 L, Globulin 4.4 H, Albumin/Globulin Ratio 0.6 L Inpatient E&M: 14248 Subs Hosp L2
[2020-09-21] VITALS (16 sets, daily range): BP systolic 129–138; BP diastolic 65–80; PULSE 75–113; RESP 18–20; TEMP 35.7–36.3; O2SAT 90–98
[2020-09-21 06:11] LABS: Absolute Lymphocyte Count 1.85 X10^3/uL (0.83-4.51); Absolute Neutrophil Count 10.5 X10^3/uL (2.0-7.7); Basophil# 0.05 X10^3/uL; Basophil% 0.4 % (0-1); Eosinophil# 0.04 X10^3/uL; Eosinophils% 0.3 % (0-5); Hematocrit 42.1 % (37-47); Lymphocyte # 1.85 X10^3/ul (4.0); Lymphocyte % 13.4 % (19-41); Mean Corp Hgb Conc 30.9 g/dL (32-36); Mean Corpuscular Hgb 28.7 pg (27.0-32.0); Mean Corpuscular Volume 92.9 fL (81-99); Mean Platelet Vol. 9.2 fl (6.2-12.0); Monocyte# 0.92 X10^3/uL; Monocyte% 6.7 % (0-10); NRBC Flagged by Analyzer 0 % (0-5); Neutrophil # 10.49 X10^3/uL (2.7-7.7); Neutrophil % 76.1 % (47-70); Platelet Count 547 K/mm3 (150-450); RBC Distribution Width CV 13.2 % (11.6-14.6); RBC Distribution Width SD 44.9 fl (35.1-43.9); Red Blood Count 4.53 M/mm3 (4.2-5.4); White Blood Count 13.8 K/mm3 (4.4-11.0)
[2020-09-21 06:51] LABS: ALB/GLOB Ratio 0.7 RATIO (0.9-2.4); AST(SGOT) 17 U/L (15-37); Alanine Aminotransfer ALT/SGPT 29 U/L (13-56); Albumin, Serum 2.7 g/dL (3.2-5.0); Alkaline Phosphatase 86 U/L (45-117); Anion Gap 7 (5-15); BUN 20 mg/dL (7-18); BUN/Creat Ratio 27.5 RATIO (10-20); Calcium,Total 8.8 mg/dL (8.5-10.1); Chloride 96 mmol/L (98-107); Creatinine, Serum 0.73 mg/dL (0.55-1.02); EST Glomerular Filtration Rate 86 mL/min (>60); Est Glom Filt Rate - Afr Amer 104 mL/min (>60); Estimated Creatinine Clearance 83.51 ml/min; Globulin 3.7 g/dL (2.2-4.2); Glucose 92 mg/dL (74-106); Potassium 4.9 mmol/L (3.5-5.1); Protein, Total 6.4 g/dL (6.4-8.2); Sodium Level 133 mmol/L (136-145)
[2020-09-21] MEDS: dexAMETHasone 4 MG Tablet 6 MG PO (08:57)
[2020-09-21] MEDS: Furosemide 40 MG/4 ML Vial IV (08:57)
[2020-09-21] MEDS: Enoxaparin 40 MG/0.4 ML Syringe SC ×2 (08:57→21:38)
[2020-09-21] MEDS: 0.9% Saline Lock 10 ML Syringe IV (08:57)
[2020-09-21] MEDS: Lisinopril 10 MG Tablet PO (08:58)
--- NOTE | 2020-09-21 10:08 | PN_ITS ---
Patient Problems: Active and Suspected Problems (Last Reviewed 09/14/20 @ 05:[address] Frantz Dupont MD) SARS (severe acute respiratory syndrome) (Acute) COVID-19 (Acute) Subjective: The patient was seen and examined at the bedside this morning. Events from the last 24 hours have been reviewed. The patient is currently afebrile, hemodynamically stable and maintaining appropriate oxygen saturations on 11 L/min via nasal cannula. The patient has already received convalescent plasma and has completed a treatment course of remdesivir. She remains on scheduled Decadron daily. Objective: The patient's most recent lab work, culture data and imaging studies have all been personally reviewed. Coronavirus PCR was positive on September 13. - Physical Exam Vitals/I&O's: Vital Signs Temp Pulse Resp BP Pulse Ox 96.2 F L 100 18 138/70 H 94 09/21/20 08:58 09/21/20 08:58 09/21/20 08:58 09/21/20 08:58 09/21/20 09:00 Oxygen Flow Rate (L/min) 11 Oxygen Delivery Method Nasal Cannula Weight: 248 lb 7.375 oz Body Mass Index (BMI) 36.6 Intake and Output for Last 24 Hours 09/19/20 09/20/20 09/21/20 23:59 23:59 23:59 Intake Total 500 / 500 400 / 400 600 / 600 Output Total 250 / 250 800 / 800 Balance 250 / 250 -400 / -400 600 / 600 General: Alert, Cooperative, No apparent distress HEENT: Atraumatic, Normocephalic Oral: Moist Mucosa, No Gingival or Mucosal Lesions/ Ulcerations Neck: Supple, No Nodes, Trachea Midline Lungs: No rhonchi, No wheeze, No rales, Diminished Cardiovascular: Regular rate, Regular Rhythm Abdomen: Bowel Sounds Present, Soft, Non Tender, Obese Extremities: No clubbing, No cyanosis, No edema Skin: No breakdown Musculoskeletal: No Tenderness to Palpation of Joints or Extremities, No Muscle Wasting Lymphatic: No Cervical, Supraclavicular, or Inguinal Adenopathy Neurological: Neuro grossly intact Psych/Mental Status: Alert and oriented to time, place, person, mood and affect Labs (Last 48 Hours) 09/20/20 09/20/20 09/21/20 05:50 05:50 04:55 WBC 14.4 H 13.8 H RBC 4.66 4.53 Hgb 14.0 13.0 Hct 43.3 42.1 MCV 92.9 92.9 MCH 30.0 28.7 MCHC 32.3 30.9 L RDW Std Deviation 45.2 H 44.9 H RDW Coeff of Cara 13.3 13.2 Plt Count 556 H 547 H MPV 9.2 9.2 Immature Gran % (Auto) 4.000 H 3.100 H Neut % (Auto) 74.5 H 76.1 H Lymph % (Auto) 14.5 L 13.4 L [place] % (Auto) 6.2 6.7 Eos % (Auto) 0.5 0.3 Baso % (Auto) 0.3 0.4 Absolute Neuts (auto) 10.7 H 10.5 H Absolute Lymphs (auto) 2.09 1.85 Nucleated RBC % 0 0 Sodium 135 L Potassium 3.6 Chloride 98 Carbon Dioxide 31.0 Anion Gap 6 BUN 18 Creatinine 0.70 Estim Creat Clear Calc 87.08 Est GFR (MDRD) Af Amer 109 Est GFR (MDRD) Non-Af 90 BUN/Creatinine Ratio 25.8 H Glucose 117 H Calcium 8.7 Magnesium 2.2 Total Bilirubin 0.40 AST 13 L ALT 27 Alkaline Phosphatase 86 Total Protein 6.9 Albumin 2.5 L Globulin 4.4 H Albumin/Globulin Ratio 0.6 L 09/21/20 04:55 WBC RBC Hgb Hct MCV MCH MCHC RDW Std Deviation RDW Coeff of Cara Plt Count MPV Immature Gran % (Auto) Neut % (Auto) Lymph % (Auto) [place] % (Auto) Eos % (Auto) Baso % (Auto) Absolute Neuts (auto) Absolute Lymphs (auto) Nucleated RBC % Sodium 133 L Potassium 4.9 Chloride 96 L Carbon Dioxide 30.0 Anion Gap 7 BUN 20 H Creatinine 0.73 Estim Creat Clear Calc 83.51 Est GFR (MDRD) Af Amer 104 Est GFR (MDRD) Non-Af 86 BUN/Creatinine Ratio 27.5 H Glucose 92 Calcium 8.8 Magnesium Total Bilirubin 0.50 AST 17 ALT 29 Alkaline Phosphatase 86 Total Protein 6.4 Albumin 2.7 L Globulin 3.7 Albumin/Globulin Ratio 0.7 L Microbiology 09/13/20 20:15 Blood Culture (Wb) - Right Hand Blood Culture - Final No growth in 5 days. 09/13/20 20:13 Blood Culture (Wb) - Anticubital Right Blood Culture - Final No growth in 5 days. Clinical Impression(s) from Imaging Studies Chest X-Ray 09/13/20 20:30 IMPRESSION: Findings suspicious for Covid 19 pneumonia. Clinical correlation recommended Electronically Signed: Abner Xie MD at 20:54 EST , Service support , Chest CTA 09/13/20 20:52 IMPRESSION: Diffuse bilateral mixed interstitial and alveolar infiltrates within the upper and lower lobes bilaterally. Covid 19 pneumonia not excluded. No evidence for pulmonary embolus Electronically Signed: Abner Xie MD at 22:06 EST , Service support , Current Medications Acetaminophen (Acetaminophen 325 Mg Tablet) 650 mg PO Q6H PRN PRN PRN Reason: Pain Score 1-10/Temp > 100.7 F Last Admin: 09/14/20 22:38 Dose: 650 mg Documented by: Albuterol Sulfate (Albuterol Ih 8.5 Gm (Proair) Inhaler (200 Puffs)) 2 puff INHALATION Q4H PRN PRN PRN Reason: sob/wheezing Last Admin: 09/16/20 04:26 Dose: 2 puff Documented by: Dexamethasone (Dexamethasone 4 Mg Tablet) 6 mg PO DAILY@0800 [facility] Last Admin: 09/21/20 08:57 Dose: 6 mg Documented by: Enoxaparin Sodium (Enoxaparin 40 Mg/0.4 Ml Syringe) 40 mg SC BID [facility] Last Admin: 09/21/20 08:57 Dose: 40 mg Documented by: Furosemide (Furosemide 40 Mg/4 Ml Vial) 40 mg IV DAILY [facility] Last Admin: 09/21/20 08:57 Dose: 40 mg Documented by: Guaifenesin (Guaifenesin 10 Ml Udc (200mg/10ml)) 10 ml PO Q4H PRN PRN PRN Reason: COUGH Last Admin: 09/19/20 20:15 Dose: 10 ml Documented by: Sodium Chloride () 250 mls @ 15 mls/hr IV .[id number] PRN PRN Reason: Saline Flush Last Infusion: 09/18/20 19:34 Dose: Infused Documented by: Sodium Chloride () 250 mls @ 15 mls/hr IV .[id number] PRN PRN Reason: Additional IVPB Infusion Lisinopril (Lisinopril 10 Mg Tablet) 10 mg PO DAILY CAT Last Admin: 09/21/20 08:58 Dose: 10 mg Documented by: Melatonin (Melatonin 3 Mg Tablet) 3 mg PO QHS PRN PRN PRN Reason: INSOMNIA Ondansetron HCl (Ondansetron 4 Mg/2 Ml Vial) 4 mg IV Q8H PRN PRN PRN Reason: NAUSEA/VOMITING Sodium Chloride (0.9% Saline Lock 10 Ml Syringe) 10 - 40 ml IV UD PRN PRN Reason: SALINE FLUSH Last Admin: 09/21/20 08:57 Dose: 10 ml Documented by: Sodium Chloride (Sodium Chloride 0.65% 1 [place].Btl) 2 spray NASAL TID PRN PRN PRN Reason: NASAL DRYNESS Last Admin: 09/20/20 02:36 Dose: 2 spray Documented by: Medical Necessity - Tobacco Use Smoking Status: Never smoker Assessment/Plan All Active Problems (Last Reviewed 09/14/20 @ 05:[address] Frantz Dupont MD) SARS (severe acute respiratory syndrome) (Acute) COVID-19 (Acute) RECOMMENDATIONS: 1. Continue with Decadron and Lovenox. 2. Wean supplemental oxygen to maintain saturations at or above 90%. 3. Encourage incentive spirometer use and mobilize patient as tolerated. 4. Continue diuretic therapy as tolerated by hemodynamics and renal function. IMPRESSIONS: 1. Acute hypoxic respiratory failure secondary to COVID-19 pneumonia The patient received convalescent plasma and has completed a treatment course of remdesivir. She will be continued on Decadron 6 mg daily to complete a 10-day treatment course. Continue Lovenox therapy as ordered as well. The patient will be continued on a combination of BiPAP and Airvo heated high flow oxygen to maintain saturations at or above 90%. Encourage incentive spirometer use and mobilize patient as tolerated. Continue Lasix. 2. Asthma/advanced age/obesity/multiple allergies Complicates care, management, recovery and prognosis. Continue home medications as indicated. This note was generated with Dragon dictation software. It may contain incorrect words, spelling, and punctuation that were not noted in checking the note before signing. Inpatient E&M: 25618 Subs Hosp L2
--- NOTE | 2020-09-21 11:02 | PCM.PN.HOSP ---
Patient Problems: Active and Suspected Problems (Last Reviewed 09/14/20 @ 05:[address] Frantz Dupont MD) SARS (severe acute respiratory syndrome) (Acute) COVID-19 (Acute) Reason for Visit: Acute bilateral COVID-19 pneumonia with acute severe hypoxic respiratory failure Objective: Patient on AIR VO 53% FiO2. Currently, patient was put on high flow oxygen 10 to 11 L/min. No fever. Physical exam General: Alert, Oriented x3, Cooperative HEENT: Atraumatic, PERRLA, EOMI, Normocephalic Oral: No Gingival or Mucosal Lesions/ Ulcerations Neck: Supple, No JVD, Negative Carotid Bruits Lungs: Air entry diminished in bilateral lung bases. Mild expiratory rhonchi on lung bases. Severe hypoxia. Cardiovascular: Regular rate, Regular Rhythm, Normal S1, Normal S2, No murmurs Abdomen: Bowel Sounds Present, Soft, Non Tender, Non-Distended : No renal angle tenderness. No suprapubic tenderness. Extremities: No edema, Capillary Refill Less than 3 Seconds Skin: No rashes, No breakdown Musculoskeletal: No Tenderness to Palpation of Joints or Extremities Neurological: Cranial nerves II-XII grossly intact, Deep Tendon Reflexes 2+/4 and Symmetrical, Neuro grossly intact Psych/Mental Status: Normal Affect, Appropriate. Vitals/I&O's: Vital Signs Temp Pulse Resp BP Pulse Ox 96.2 F L 100 18 138/70 H 94 09/21/20 08:58 09/21/20 08:58 09/21/20 08:58 09/21/20 08:58 09/21/20 09:00 Oxygen Flow Rate (L/min) 11 Oxygen Delivery Method Nasal Cannula Weight: 248 lb 7.375 oz Body Mass Index (BMI) 36.6 Intake and Output for Last 24 Hours 09/19/20 09/20/20 09/21/20 23:59 23:59 23:59 Intake Total 500 / 500 400 / 400 600 / 600 Output Total 250 / 250 800 / 800 Balance 250 / 250 -400 / -400 600 / 600 Microbiology Past 72 Hours 09/13/20 20:15 Blood Culture (Wb) - Right Hand Blood Culture - Final No growth in 5 days. 09/13/20 20:13 Blood Culture (Wb) - Anticubital Right Blood Culture - Final No growth in 5 days. Laboratory Results 09/21/20 04:55: WBC 13.8 H, RBC 4.53, Hgb 13.0, Hct 42.1, MCV 92.9, MCH 28.7, MCHC 30.9 L, RDW Std Deviation 44.9 H, RDW Coeff of Cara 13.2, Plt Count 547 H, MPV 9.2, Immature Gran % (Auto) 3.100 H, Neut % (Auto) 76.1 H, Lymph % (Auto) 13.4 L, [place] % (Auto) 6.7, Eos % (Auto) 0.3, Baso % (Auto) 0.4, Absolute Neuts (auto) 10.5 H, Absolute Lymphs (auto) 1.85, Nucleated RBC % 0 09/21/20 04:55: Sodium 133 L, Potassium 4.9, Chloride 96 L, Carbon Dioxide 30.0, Anion Gap 7, BUN 20 H, Creatinine 0.73, Estim Creat Clear Calc 83.51, Est GFR (MDRD) Af Amer 104, Est GFR (MDRD) Non-Af 86, BUN/Creatinine Ratio 27.5 H, Glucose 92, Calcium 8.8, Total Bilirubin 0.50, AST 17, ALT 29, Alkaline Phosphatase 86, Total Protein 6.4, Albumin 2.7 L, Globulin 3.7, Albumin/Globulin Ratio 0.7 L Current Medications Acetaminophen (Acetaminophen 325 Mg Tablet) 650 mg PO Q6H PRN PRN PRN Reason: Pain Score 1-10/Temp > 100.7 F Last Admin: 09/14/20 22:38 Dose: 650 mg Documented by: Albuterol Sulfate (Albuterol Ih 8.5 Gm (Proair) Inhaler (200 Puffs)) 2 puff INHALATION Q4H PRN PRN PRN Reason: sob/wheezing Last Admin: 09/16/20 04:26 Dose: 2 puff Documented by: Dexamethasone (Dexamethasone 4 Mg Tablet) 6 mg PO DAILY@0800 [facility] Last Admin: 09/21/20 08:57 Dose: 6 mg Documented by: Enoxaparin Sodium (Enoxaparin 40 Mg/0.4 Ml Syringe) 40 mg SC BID [facility] Last Admin: 09/21/20 08:57 Dose: 40 mg Documented by: Furosemide (Furosemide 40 Mg/4 Ml Vial) 40 mg IV DAILY [facility] Last Admin: 09/21/20 08:57 Dose: 40 mg Documented by: Guaifenesin (Guaifenesin 10 Ml Udc (200mg/10ml)) 10 ml PO Q4H PRN PRN PRN Reason: COUGH Last Admin: 09/19/20 20:15 Dose: 10 ml Documented by: Sodium Chloride () 250 mls @ 15 mls/hr IV .[id number] PRN PRN Reason: Saline Flush Last Infusion: 09/18/20 19:34 Dose: Infused Documented by: Sodium Chloride () 250 mls @ 15 mls/hr IV .[id number] PRN PRN Reason: Additional IVPB Infusion Lisinopril (Lisinopril 10 Mg Tablet) 10 mg PO DAILY CAT Last Admin: 09/21/20 08:58 Dose: 10 mg Documented by: Melatonin (Melatonin 3 Mg Tablet) 3 mg PO QHS PRN PRN PRN Reason: INSOMNIA Ondansetron HCl (Ondansetron 4 Mg/2 Ml Vial) 4 mg IV Q8H PRN PRN PRN Reason: NAUSEA/VOMITING Sodium Chloride (0.9% Saline Lock 10 Ml Syringe) 10 - 40 ml IV UD PRN PRN Reason: SALINE FLUSH Last Admin: 09/21/20 08:57 Dose: 10 ml Documented by: Sodium Chloride (Sodium Chloride 0.65% 1 [place].Btl) 2 spray NASAL TID PRN PRN PRN Reason: NASAL DRYNESS Last Admin: 09/20/20 02:36 Dose: 2 spray Documented by: STROKE Vital Signs/Narrative: Vital Signs Temp Pulse Resp BP Pulse Ox 09/21/20 09:00 94 09/21/20 08:58 96.2 F L 100 18 138/70 H 94 09/21/20 07:50 75 20 H 98 Medical Necessity - Tobacco Use Smoking Status: Never smoker Assessment/Plan All Active Problems (Last Reviewed 09/14/20 @ 05:[address] Frantz Dupont MD) SARS (severe acute respiratory syndrome) (Acute) COVID-19 (Acute) This is a 60-year-old female admitted with acute hypoxic respiratory failure secondary to COVID-19 pneumonia 1. Acute hypoxic respiratory failure secondary to COVID-19 pneumonia: Blood culture negative for 5 days. Patient still has leukocytosis 16.5 thousand. Platelet count 471,000. Albumin 2.3. -CTA of her chest was negative for PEs. Continue Decadron. No need for antibiotic -Continue with Decadron -Appreciate pulmonology and ID follow-up. -Completed remdesivir, and she received convalescent plasma on 08/15/202009/20: On high flow AIR VO. Titrate oxygen to keep pulse ox 92%. On Decadron. Leukocytosis 14,000, ALC 2.0 thousand 09/21: On high flow oxygen and AIR VO. On Decadron. Still has leukocytosis, not much difference from yesterday. 2. HTN -Blood pressure stable, continue with lisinopril DVT: Lovenox Clinical Impression(s) from Imaging Studies Chest X-Ray 09/13/20 20:30 IMPRESSION: Findings suspicious for Covid 19 pneumonia. Clinical correlation recommended Chest CTA 09/13/20 20:52 IMPRESSION: Diffuse bilateral mixed interstitial and alveolar infiltrates within the upper and lower lobes bilaterally. Covid 19 pneumonia not excluded. No evidence for pulmonary embolus Microbiology Past 72 Hours 09/13/20 20:15 Blood Culture (Wb) - Right Hand Blood Culture - Final No growth in 5 days. 09/13/20 20:13 Blood Culture (Wb) - Anticubital Right Blood Culture - Final No growth in 5 days. Laboratory Results 09/21/20 04:55: WBC 13.8 H, RBC 4.53, Hgb 13.0, Hct 42.1, MCV 92.9, MCH 28.7, MCHC 30.9 L, RDW Std Deviation 44.9 H, RDW Coeff of Cara 13.2, Plt Count 547 H, MPV 9.2, Immature Gran % (Auto) 3.100 H, Neut % (Auto) 76.1 H, Lymph % (Auto) 13.4 L, [place] % (Auto) 6.7, Eos % (Auto) 0.3, Baso % (Auto) 0.4, Absolute Neuts (auto) 10.5 H, Absolute Lymphs (auto) 1.85, Nucleated RBC % 0 09/21/20 04:55: Sodium 133 L, Potassium 4.9, Chloride 96 L, Carbon Dioxide 30.0, Anion Gap 7, BUN 20 H, Creatinine 0.73, Estim Creat Clear Calc 83.51, Est GFR (MDRD) Af Amer 104, Est GFR (MDRD) Non-Af 86, BUN/Creatinine Ratio 27.5 H, Glucose 92, Calcium 8.8, Total Bilirubin 0.50, AST 17, ALT 29, Alkaline Phosphatase 86, Total Protein 6.4, Albumin 2.7 L, Globulin 3.7, Albumin/Globulin Ratio 0.7 L Inpatient E&M: 16395 Subs Hosp L2
--- NOTE | 2020-09-21 15:09 | PN.ID_ITS ---
Patient Problems: Active and Suspected Problems (Last Reviewed 09/14/20 @ 05:[address] Frantz Dupont MD) SARS (severe acute respiratory syndrome) (Acute) COVID-19 (Acute) Subjective: Feeling much better today, no fever, no n/v/d. - Physical Exam Vitals/I&O's: Vital Signs Temp Pulse Resp BP Pulse Ox 96.2 F L 113 H 18 138/70 H 94 09/21/20 08:58 09/21/20 10:15 09/21/20 08:58 09/21/20 08:58 09/21/20 13:20 Oxygen Flow Rate (L/min) 11 Oxygen Delivery Method Nasal Cannula Weight: 112.7 kg Body Mass Index (BMI) 36.6 Intake and Output for Last 24 Hours 09/19/20 09/20/20 09/21/20 23:59 23:59 23:59 Intake Total 500 / 500 400 / 400 600 / 600 Output Total 250 / 250 800 / 800 1000 / 1000 Balance 250 / 250 -400 / -400 -400 / -400 General: Alert, Cooperative, No apparent distress Lungs: Clear to auscultation, Diminished Cardiovascular: Regular rate, Regular Rhythm Abdomen: Soft, Non Tender, Non-Distended Skin: No rashes Microbiology Past 72 Hours 09/13/20 20:15 Blood Culture (Wb) - Right Hand Blood Culture - Final No growth in 5 days. 09/13/20 20:13 Blood Culture (Wb) - Anticubital Right Blood Culture - Final No growth in 5 days. Laboratory Results 09/21/20 04:55: WBC 13.8 H, RBC 4.53, Hgb 13.0, Hct 42.1, MCV 92.9, MCH 28.7, MCHC 30.9 L, RDW Std Deviation 44.9 H, RDW Coeff of Cara 13.2, Plt Count 547 H, MPV 9.2, Immature Gran % (Auto) 3.100 H, Neut % (Auto) 76.1 H, Lymph % (Auto) 13.4 L, [place] % (Auto) 6.7, Eos % (Auto) 0.3, Baso % (Auto) 0.4, Absolute Neuts (auto) 10.5 H, Absolute Lymphs (auto) 1.85, Nucleated RBC % 0 09/21/20 04:55: Sodium 133 L, Potassium 4.9, Chloride 96 L, Carbon Dioxide 30.0, Anion Gap 7, BUN 20 H, Creatinine 0.73, Estim Creat Clear Calc 83.51, Est GFR (MDRD) Af Amer 104, Est GFR (MDRD) Non-Af 86, BUN/Creatinine Ratio 27.5 H, Glucose 92, Calcium 8.8, Total Bilirubin 0.50, AST 17, ALT 29, Alkaline Phosphatase 86, Total Protein 6.4, Albumin 2.7 L, Globulin 3.7, Albumin/Globulin Ratio 0.7 L Current Medications Acetaminophen (Acetaminophen 325 Mg Tablet) 650 mg PO Q6H PRN PRN PRN Reason: Pain Score 1-10/Temp > 100.7 F Last Admin: 09/14/20 22:38 Dose: 650 mg Documented by: Albuterol Sulfate (Albuterol Ih 8.5 Gm (Proair) Inhaler (200 Puffs)) 2 puff INHALATION Q4H PRN PRN PRN Reason: sob/wheezing Last Admin: 09/16/20 04:26 Dose: 2 puff Documented by: Dexamethasone (Dexamethasone 4 Mg Tablet) 6 mg PO DAILY@0800 [facility] Last Admin: 09/21/20 08:57 Dose: 6 mg Documented by: Enoxaparin Sodium (Enoxaparin 40 Mg/0.4 Ml Syringe) 40 mg SC BID [facility] Last Admin: 09/21/20 08:57 Dose: 40 mg Documented by: Furosemide (Furosemide 40 Mg/4 Ml Vial) 40 mg IV DAILY [facility] Last Admin: 09/21/20 08:57 Dose: 40 mg Documented by: Guaifenesin (Guaifenesin 10 Ml Udc (200mg/10ml)) 10 ml PO Q4H PRN PRN PRN Reason: COUGH Last Admin: 09/19/20 20:15 Dose: 10 ml Documented by: Sodium Chloride () 250 mls @ 15 mls/hr IV .[id number] PRN PRN Reason: Saline Flush Last Infusion: 09/18/20 19:34 Dose: Infused Documented by: Sodium Chloride () 250 mls @ 15 mls/hr IV .[id number] PRN PRN Reason: Additional IVPB Infusion Lisinopril (Lisinopril 10 Mg Tablet) 10 mg PO DAILY CAT Last Admin: 09/21/20 08:58 Dose: 10 mg Documented by: Melatonin (Melatonin 3 Mg Tablet) 3 mg PO QHS PRN PRN PRN Reason: INSOMNIA Ondansetron HCl (Ondansetron 4 Mg/2 Ml Vial) 4 mg IV Q8H PRN PRN PRN Reason: NAUSEA/VOMITING Sodium Chloride (0.9% Saline Lock 10 Ml Syringe) 10 - 40 ml IV UD PRN PRN Reason: SALINE FLUSH Last Admin: 09/21/20 08:57 Dose: 10 ml Documented by: Sodium Chloride (Sodium Chloride 0.65% 1 [place].Btl) 2 spray NASAL TID PRN PRN PRN Reason: NASAL DRYNESS Last Admin: 09/20/20 02:36 Dose: 2 spray Documented by: Medical Necessity - Tobacco Use Smoking Status: Never smoker Route of nutrition/ use of supplements: [] Nutritional Intake: [] IV Site: [] Massey Catheter: [] - Assessment/Plan Antibiotics: [] Assessment/Plan: [] Active and Suspected Problems (Last Reviewed 09/14/20 @ 05:[address] Frantz Dupont MD) SARS (severe acute respiratory syndrome) (Acute) COVID-19 (Acute) covid with hypoxia - on dex, lovenox 30mg bid. On nasal cannula today. Completed remdesivir. Got plasma 09/15/20. Overall much improved. Ok for discharge home once O2 is stable to complete 10 days total of dex. Will follow
[2020-09-22] VITALS (11 sets, daily range): BP systolic 126–148; BP diastolic 74–79; PULSE 73–136; RESP 18; TEMP 36.1–36.8; O2SAT 95–99
[2020-09-22] MEDS: guaiFENesin 10 ML UDC (200MG/10ML) PO ×2 (01:10→22:37)
[2020-09-22] MEDS: Sodium Chloride 0.65% 1 SPRAY SPRAY.BTL 2 SPRAY NASAL ×3 (01:18→22:37)
[2020-09-22] MEDS: Lisinopril 10 MG Tablet PO (09:38)
[2020-09-22] MEDS: Enoxaparin 40 MG/0.4 ML Syringe SC ×2 (09:39→22:37)
[2020-09-22] MEDS: dexAMETHasone 4 MG Tablet 6 MG PO (09:39)
--- NOTE | 2020-09-22 10:27 | PN_ITS ---
Patient Problems: Active and Suspected Problems (Last Reviewed 09/14/20 @ 05:[address] Frantz Dupont MD) SARS (severe acute respiratory syndrome) (Acute) COVID-19 (Acute) Subjective: The patient was seen and examined at the bedside this morning. Events from the last 24 hours have been reviewed. The patient is currently afebrile, hemodynamically stable and maintaining appropriate oxygen saturations on 8 L/min via nasal cannula. The patient has already received convalescent plasma and has completed a treatment course of remdesivir. She remains on scheduled Decadron daily. Supplemental oxygen requirement is improving. Objective: The patient's most recent lab work, culture data and imaging studies have all been personally reviewed. Coronavirus PCR was positive on September 13. - Physical Exam Vitals/I&O's: Vital Signs Temp Pulse Resp BP Pulse Ox 97.6 F L 120 H 18 141/74 H 96 09/22/20 09:37 09/22/20 09:37 09/22/20 09:37 09/22/20 09:37 09/22/20 09:37 Oxygen Flow Rate (L/min) 8 Oxygen Delivery Method Nasal Cannula Weight: 248 lb 7.375 oz Body Mass Index (BMI) 36.6 Intake and Output for Last 24 Hours 09/20/20 09/21/20 09/22/20 23:59 23:59 23:59 Intake Total 400 / 400 600 / 600 Output Total 800 / 800 1000 / 1000 Balance -400 / -400 -400 / -400 General: Alert, No apparent distress HEENT: Atraumatic, Normocephalic Oral: Moist Mucosa Neck: Supple Lungs: No rhonchi, No wheeze, No rales, Diminished Cardiovascular: Regular rate, Regular Rhythm Abdomen: Bowel Sounds Present, Soft, Non Tender, Obese Extremities: No clubbing, No cyanosis, No edema Skin: No breakdown Musculoskeletal: No Tenderness to Palpation of Joints or Extremities, No Muscle Wasting Lymphatic: No Cervical, Supraclavicular, or Inguinal Adenopathy Neurological: Cranial nerves II-XII grossly intact, Neuro grossly intact Psych/Mental Status: Normal Affect Labs (Last 48 Hours) 09/21/20 09/21/20 04:55 04:55 WBC 13.8 H RBC 4.53 Hgb 13.0 Hct 42.1 MCV 92.9 MCH 28.7 MCHC 30.9 L RDW Std Deviation 44.9 H RDW Coeff of Cara 13.2 Plt Count 547 H MPV 9.2 Immature Gran % (Auto) 3.100 H Neut % (Auto) 76.1 H Lymph % (Auto) 13.4 L [place] % (Auto) 6.7 Eos % (Auto) 0.3 Baso % (Auto) 0.4 Absolute Neuts (auto) 10.5 H Absolute Lymphs (auto) 1.85 Nucleated RBC % 0 Sodium 133 L Potassium 4.9 Chloride 96 L Carbon Dioxide 30.0 Anion Gap 7 BUN 20 H Creatinine 0.73 Estim Creat Clear Calc 83.51 Est GFR (MDRD) Af Amer 104 Est GFR (MDRD) Non-Af 86 BUN/Creatinine Ratio 27.5 H Glucose 92 Calcium 8.8 Total Bilirubin 0.50 AST 17 ALT 29 Alkaline Phosphatase 86 Total Protein 6.4 Albumin 2.7 L Globulin 3.7 Albumin/Globulin Ratio 0.7 L Clinical Impression(s) from Imaging Studies Chest X-Ray 09/13/20 20:30 IMPRESSION: Findings suspicious for Covid 19 pneumonia. Clinical correlation recommended Electronically Signed: Abner Xie MD at 20:54 EST , Service support , Chest CTA 09/13/20 20:52 IMPRESSION: Diffuse bilateral mixed interstitial and alveolar infiltrates within the upper and lower lobes bilaterally. Covid 19 pneumonia not excluded. No evidence for pulmonary embolus Electronically Signed: Abner Xie MD at 22:06 EST , Service support , Current Medications Acetaminophen (Acetaminophen 325 Mg Tablet) 650 mg PO Q6H PRN PRN PRN Reason: Pain Score 1-10/Temp > 100.7 F Last Admin: 09/14/20 22:38 Dose: 650 mg Documented by: Albuterol Sulfate (Albuterol Ih 8.5 Gm (Proair) Inhaler (200 Puffs)) 2 puff INHALATION Q4H PRN PRN PRN Reason: sob/wheezing Last Admin: 09/16/20 04:26 Dose: 2 puff Documented by: Dexamethasone (Dexamethasone 4 Mg Tablet) 6 mg PO DAILY@0800 [facility] Last Admin: 09/22/20 09:39 Dose: 6 mg Documented by: Enoxaparin Sodium (Enoxaparin 40 Mg/0.4 Ml Syringe) 40 mg SC BID [facility] Last Admin: 09/22/20 09:39 Dose: 40 mg Documented by: Furosemide (Furosemide 40 Mg/4 Ml Vial) 40 mg IV DAILY [facility] Last Admin: 09/21/20 08:57 Dose: 40 mg Documented by: Guaifenesin (Guaifenesin 10 Ml Udc (200mg/10ml)) 10 ml PO Q4H PRN PRN PRN Reason: COUGH Last Admin: 09/22/20 01:10 Dose: 10 ml Documented by: Sodium Chloride () 250 mls @ 15 mls/hr IV .[id number] PRN PRN Reason: Saline Flush Last Infusion: 09/18/20 19:34 Dose: Infused Documented by: Sodium Chloride () 250 mls @ 15 mls/hr IV .[id number] PRN PRN Reason: Additional IVPB Infusion Lisinopril (Lisinopril 10 Mg Tablet) 10 mg PO DAILY [facility] Last Admin: 09/22/20 09:38 Dose: 10 mg Documented by: Melatonin (Melatonin 3 Mg Tablet) 3 mg PO QHS PRN PRN PRN Reason: INSOMNIA Ondansetron HCl (Ondansetron 4 Mg/2 Ml Vial) 4 mg IV Q8H PRN PRN PRN Reason: NAUSEA/VOMITING Sodium Chloride (0.9% Saline Lock 10 Ml Syringe) 10 - 40 ml IV UD PRN PRN Reason: SALINE FLUSH Last Admin: 09/21/20 08:57 Dose: 10 ml Documented by: Sodium Chloride (Sodium Chloride 0.65% 1 [place].Btl) 2 spray NASAL TID PRN PRN PRN Reason: NASAL DRYNESS Last Admin: 09/22/20 09:39 Dose: 2 spray Documented by: Medical Necessity - Tobacco Use Smoking Status: Never smoker Assessment/Plan All Active Problems (Last Reviewed 09/14/20 @ 05:[address] Frantz Dupont MD) SARS (severe acute respiratory syndrome) (Acute) COVID-19 (Acute) RECOMMENDATIONS: 1. Continue with Decadron and Lovenox. 2. Wean supplemental oxygen to maintain saturations at or above 90%. 3. Encourage incentive spirometer use and mobilize patient as tolerated. 4. Continue diuretic therapy as tolerated by hemodynamics and renal function. Check BMP today. IMPRESSIONS: 1. Acute hypoxic respiratory failure secondary to COVID-19 pneumonia The patient received convalescent plasma and has completed a treatment course of remdesivir. She will be continued on Decadron 6 mg daily to complete a 10-day treatment course. Continue Lovenox therapy as ordered as well. Continue daily diuretic therapy as tolerated by hemodynamics and renal function. Continue to wean supplemental oxygen to maintain saturations at or above 90%. Encourage i ncentive spirometer use and mobilize patient as tolerated. 2. Asthma/advanced age/obesity/multiple allergies Complicates care, management, recovery and prognosis. Continue home medications as indicated. This note was generated with Parse dictation software. It may contain incorrect words, spelling, and punctuation that were not noted in checking the note before signing. Inpatient E&M: 07352 Subs Hosp L2
[2020-09-22 12:17] LABS: Anion Gap 7 (5-15); BUN 21 mg/dL (7-18); BUN/Creat Ratio 26.3 RATIO (10-20); Calcium,Total 9.1 mg/dL (8.5-10.1); Chloride 97 mmol/L (98-107); EST Glomerular Filtration Rate 78 mL/min (>60); Est Glom Filt Rate - Afr Amer 94 mL/min (>60); Glucose 141 mg/dL (74-106); Potassium 4.7 mmol/L (3.5-5.1); Sodium Level 133 mmol/L (136-145)
--- NOTE | 2020-09-22 15:09 | PCM.PN.HOSP ---
Patient Problems: Active and Suspected Problems (Last Reviewed 09/14/20 @ 05:[address] Frantz Dupont MD) SARS (severe acute respiratory syndrome) (Acute) COVID-19 (Acute) Reason for Visit: Follow-up for acute hypoxic respiratory failure secondary to COVID-19 pneumonia. Objective: Patient had big chunk of dark brownish-black crust from the nose. I tried to make her understand this from the dryness of oral nasal cavity although she is getting humidified air on AIR VO but it has high oxygen flow and concentration. Denies any fever or chills. Patient on saline nasal spray increased to 3 times daily. Physical exam General: Alert, Oriented x3, Cooperative HEENT: Atraumatic, PERRLA, EOMI, Normocephalic Oral: No Gingival or Mucosal Lesions/ Ulcerations Neck: Supple, No JVD, Negative Carotid Bruits Lungs: Air entry diminished in bilateral lung bases. No crepitation/rhonchi. Hypoxic. Cardiovascular: Regular rate, Regular Rhythm, Normal S1, Normal S2, No murmurs Abdomen: Bowel Sounds Present, Soft, Non Tender, Non-Distended : No renal angle tenderness. No suprapubic tenderness. Extremities: No edema, Capillary Refill Less than 3 Seconds Skin: No rashes, No breakdown Musculoskeletal: No Tenderness to Palpation of Joints or Extremities Neurological: Cranial nerves II-XII grossly intact, Deep Tendon Reflexes 2+/4 and Symmetrical, Neuro grossly intact Psych/Mental Status: Normal Affect, Appropriate. Vitals/I&O's: Vital Signs Temp Pulse Resp BP Pulse Ox 98 F 95 18 126/74 H 95 09/22/20 12:33 09/22/20 12:33 09/22/20 12:33 09/22/20 12:33 09/22/20 12:33 Oxygen Flow Rate (L/min) 8 Oxygen Delivery Method Nasal Cannula Weight: 248 lb 7.375 oz Body Mass Index (BMI) 36.6 Intake and Output for Last 24 Hours 09/20/20 09/21/20 09/22/20 23:59 23:59 23:59 Intake Total 400 / 400 600 / 600 700 / 700 Output Total 800 / 800 1000 / 1000 Balance -400 / -400 -400 / -400 700 / 700 Laboratory Results 09/22/20 11:: Sodium 133 L, Potassium 4.7, Chloride 97 L, Carbon Dioxide 29.0, Anion Gap 7, BUN 21 H, Creatinine 0.80, Estim Creat Clear Calc 76.20, Est GFR (MDRD) Af Amer 94, Est GFR (MDRD) Non-Af 78, BUN/Creatinine Ratio 26.3 H, Glucose 141 H, Calcium 9.1 Current Medications Acetaminophen (Acetaminophen 325 Mg Tablet) 650 mg PO Q6H PRN PRN PRN Reason: Pain Score 1-10/Temp > 100.7 F Last Admin: 09/14/20 22:38 Dose: 650 mg Documented by: Albuterol Sulfate (Albuterol Ih 8.5 Gm (Proair) Inhaler (200 Puffs)) 2 puff INHALATION Q4H PRN PRN PRN Reason: sob/wheezing Last Admin: 09/16/20 04:26 Dose: 2 puff Documented by: Dexamethasone (Dexamethasone 4 Mg Tablet) 6 mg PO DAILY@0800 [facility] Last Admin: 09/22/20 09:39 Dose: 6 mg Documented by: Enoxaparin Sodium (Enoxaparin 40 Mg/0.4 Ml Syringe) 40 mg SC BID [facility] Last Admin: 09/22/20 09:39 Dose: 40 mg Documented by: Guaifenesin (Guaifenesin 10 Ml Udc (200mg/10ml)) 10 ml PO Q4H PRN PRN PRN Reason: COUGH Last Admin: 09/22/20 01:10 Dose: 10 ml Documented by: Sodium Chloride () 250 mls @ 15 mls/hr IV .[id number] PRN PRN Reason: Saline Flush Last Infusion: 09/18/20 19:34 Dose: Infused Documented by: Sodium Chloride () 250 mls @ 15 mls/hr IV .[id number] PRN PRN Reason: Additional IVPB Infusion Lisinopril (Lisinopril 10 Mg Tablet) 10 mg PO DAILY [facility] Last Admin: 09/22/20 09:38 Dose: 10 mg Documented by: Melatonin (Melatonin 3 Mg Tablet) 3 mg PO QHS PRN PRN PRN Reason: INSOMNIA Ondansetron HCl (Ondansetron 4 Mg/2 Ml Vial) 4 mg IV Q8H PRN PRN PRN Reason: NAUSEA/VOMITING Sodium Chloride (0.9% Saline Lock 10 Ml Syringe) 10 - 40 ml IV UD PRN PRN Reason: SALINE FLUSH Last Admin: 09/21/20 08:57 Dose: 10 ml Documented by: Sodium Chloride (Sodium Chloride 0.65% 1 [place].Btl) 2 spray NASAL TID PRN PRN PRN Reason: NASAL DRYNESS Last Admin: 09/22/20 09:39 Dose: 2 spray Documented by: STROKE Vital Signs/Narrative: Vital Signs Temp Pulse Resp BP Pulse Ox 09/22/20 12:33 98 F 95 18 126/74 H 95 Medical Necessity - Tobacco Use Smoking Status: Never smoker Assessment/Plan All Active Problems (Last Reviewed 09/14/20 @ 05:[address] Frantz Dupont MD) SARS (severe acute respiratory syndrome) (Acute) COVID-19 (Acute) This is a 60-year-old female admitted with acute hypoxic respiratory failure secondary to COVID-19 pneumonia 1. Acute hypoxic respiratory failure secondary to COVID-19 pneumonia: Blood culture negative for 5 days. Patient still has leukocytosis 16.5 thousand. Platelet count 471,000. Albumin 2.3. -CTA of her chest was negative for PEs. Continue Decadron. No need for antibiotic -Continue with Decadron -Appreciate pulmonology and ID follow-up. -Completed remdesivir, and she received convalescent plasma on 08/15/202009/20: On high flow AIR VO. Titrate oxygen to keep pulse ox 92%. On Decadron. Leukocytosis 14,000, ALC 2.0 thousand 09/21: On high flow oxygen and AIR VO. On Decadron. Still has leukocytosis, not much difference from yesterday. 09/22: On 8 L of oxygen. Hemodynamically blood pressure and heart rate are controlled. No fever. 2. HTN -Blood pressure stable, continue with lisinopril DVT: Lovenox Clinical Impression(s) from Imaging Studies Chest X-Ray 09/13/20 20:30 IMPRESSION: Findings suspicious for Covid 19 pneumonia. Clinical correlation recommended Chest CTA 09/13/20 20:52 IMPRESSION: Diffuse bilateral mixed interstitial and alveolar infiltrates within the upper and lower lobes bilaterally. Covid 19 pneumonia not excluded. No evidence for pulmonary embolus Laboratory Results 09/22/20 11:20: Sodium 133 L, Potassium 4.7, Chloride 97 L, Carbon Dioxide 29.0, Anion Gap 7, BUN 21 H, Creatinine 0.80, Estim Creat Clear Calc 76.20, Est GFR (MDRD) Af Amer 94, Est GFR (MDRD) Non-Af 78, BUN/Creatinine Ratio 26.3 H, Glucose 141 H, Calcium 9.1 Inpatient E&M: 06247 Subs Hosp L2
[2020-09-23] VITALS (11 sets, daily range): BP systolic 140–149; BP diastolic 72–91; PULSE 74–120; RESP 16–20; TEMP 36–36.6; O2SAT 82–100
[2020-09-23] MEDS: Sodium Chloride 0.65% 1 SPRAY SPRAY.BTL 2 SPRAY NASAL ×3 (02:19→21:55)
--- NOTE | 2020-09-23 09:57 | PN_ITS ---
Patient Problems: Active and Suspected Problems (Last Reviewed 09/14/20 @ 05:[address] Frantz Dupont MD) SARS (severe acute respiratory syndrome) (Acute) COVID-19 (Acute) Reason for Visit: Follow-up for acute hypoxic respiratory failure secondary to COVID-19 pneumonia Objective: Patient shortness of breath is better. On 5 L of oxygen. Patient denies nasal congestion, dryness or crust. No nausea or vomiting or abdominal pain. Physical exam General: Alert, Oriented x3, Cooperative HEENT: Atraumatic, PERRLA, EOMI, Normocephalic Oral: No Gingival or Mucosal Lesions/ Ulcerations Neck: Supple, No JVD, Negative Carotid Bruits Lungs: Air entry diminished in bilateral lungs. No crepitation/rhonchi. Hypoxia Cardiovascular: Regular rate, Regular Rhythm, Normal S1, Normal S2, No murmurs Abdomen: Bowel Sounds Present, Soft, Non Tender, Non-Distended : No renal angle tenderness. No suprapubic tenderness. Extremities: No edema, Capillary Refill Less than 3 Seconds Skin: No rashes, No breakdown Musculoskeletal: No Tenderness to Palpation of Joints or Extremities Neurological: Cranial nerves II-XII grossly intact, Deep Tendon Reflexes 2+/4 and Symmetrical, Neuro grossly intact Psych/Mental Status: Normal Affect, Appropriate. Vitals/I&O's: Vital Signs Temp Pulse Resp BP Pulse Ox 97.8 F 95 20 H 148/76 H 97 09/23/20 08:39 09/23/20 08:39 09/23/20 08:39 09/23/20 08:39 09/23/20 08:39 Oxygen Flow Rate (L/min) 5 Oxygen Delivery Method Nasal Cannula Weight: 248 lb 7.375 oz Body Mass Index (BMI) 36.6 Intake and Output for Last 24 Hours 09/21/20 09/22/20 09/23/20 23:59 23:59 23:59 Intake Total 600 / 600 1240 / 1240 150 / 150 Output Total 1000 / 1000 Balance -400 / -400 1240 / 1240 150 / 150 Laboratory Results 09/22/20 11:20: Sodium 133 L, Potassium 4.7, Chloride 97 L, Carbon Dioxide 29.0, Anion Gap 7, BUN 21 H, Creatinine 0.80, Estim Creat Clear Calc 76.20, Est GFR (MDRD) Af Amer 94, Est GFR (MDRD) Non-Af 78, BUN/Creatinine Ratio 26.3 H, Glucose 141 H, Calcium 9.1 Current Medications Acetaminophen (Acetaminophen 325 Mg Tablet) 650 mg PO Q6H PRN PRN PRN Reason: Pain Score 1-10/Temp > 100.7 F Last Admin: 09/14/20 22:38 Dose: 650 mg Documented by: Albuterol Sulfate (Albuterol Ih 8.5 Gm (Proair) Inhaler (200 Puffs)) 2 puff INHALATION Q4H PRN PRN PRN Reason: sob/wheezing Last Admin: 09/16/20 04:26 Dose: 2 puff Documented by: Dexamethasone (Dexamethasone 4 Mg Tablet) 6 mg PO DAILY@0800 [facility] Last Admin: 09/22/20 09:39 Dose: 6 mg Documented by: Enoxaparin Sodium (Enoxaparin 40 Mg/0.4 Ml Syringe) 40 mg SC BID [facility] Last Admin: 09/22/20 22:37 Dose: 40 mg Documented by: Guaifenesin (Guaifenesin 10 Ml Udc (200mg/10ml)) 10 ml PO Q4H PRN PRN PRN Reason: COUGH Last Admin: 09/22/20 22:37 Dose: 10 ml Documented by: Sodium Chloride () 250 mls @ 15 mls/hr IV .[id number] PRN PRN Reason: Saline Flush Last Infusion: 09/18/20 19:34 Dose: Infused Documented by: Sodium Chloride () 250 mls @ 15 mls/hr IV .[id number] PRN PRN Reason: Additional IVPB Infusion Lisinopril (Lisinopril 10 Mg Tablet) 10 mg PO DAILY [facility] Last Admin: 09/22/20 09:38 Dose: 10 mg Documented by: Melatonin (Melatonin 3 Mg Tablet) 3 mg PO QHS PRN PRN PRN Reason: INSOMNIA Ondansetron HCl (Ondansetron 4 Mg/2 Ml Vial) 4 mg IV Q8H PRN PRN PRN Reason: NAUSEA/VOMITING Sodium Chloride (0.9% Saline Lock 10 Ml Syringe) 10 - 40 ml IV UD PRN PRN Reason: SALINE FLUSH Last Admin: 09/21/20 08:57 Dose: 10 ml Documented by: Sodium Chloride (Sodium Chloride 0.65% 1 [place].Btl) 2 spray NASAL TID PRN PRN PRN Reason: NASAL DRYNESS Last Admin: 09/23/20 05:40 Dose: 2 spray Documented by: MARYAN Vital Signs/Narrative: Vital Signs Temp Pulse Resp BP Pulse Ox 09/23/20 08:39 97.8 F 95 20 H 148/76 H 97 Medical Necessity - Tobacco Use Smoking Status: Never smoker Assessment/Plan All Active Problems (Last Reviewed 09/14/20 @ 05:[address] Frantz Dupont MD) SARS (severe acute respiratory syndrome) (Acute) COVID-19 (Acute) This is a 60-year-old female admitted with acute hypoxic respiratory failure secondary to COVID-19 pneumonia 1. Acute hypoxic respiratory failure secondary to COVID-19 pneumonia: Blood culture negative for 5 days. Patient still has leukocytosis 16.5 thousand. Platelet count 471,000. Albumin 2.3. -CTA of her chest was negative for PEs. Continue Decadron. No need for antibiotic -Continue with Decadron -Appreciate pulmonology and ID follow-up. -Completed remdesivir, and she received convalescent plasma on 08/15/202009/20: On high flow AIR VO. Titrate oxygen to keep pulse ox 92%. On Decadron. Leukocytosis 14,000, ALC 2.0 thousand 09/21: On high flow oxygen and AIR VO. On Decadron. Still has leukocytosis, not much difference from yesterday. 09/22: On 8 L of oxygen. Hemodynamically blood pressure and heart rate are controlled. No fever. 09/23: On 5 L of oxygen. Overall respiratory status is improved. Pulse ox 88% at rest on room air and 82% ambulating on room air 90% ambulating on 8 L of oxygen 2. HTN -Blood pressure stable, continue with lisinopril DVT: Lovenox Clinical Impression(s) from Imaging Studies Chest X-Ray 09/13/20 20:30 IMPRESSION: Findings suspicious for Covid 19 pneumonia. Clinical correlation recommended Chest CTA 09/13/20 20:52 IMPRESSION: Diffuse bilateral mixed interstitial and alveolar infiltrates within the upper and lower lobes bilaterally. Covid 19 pneumonia not excluded. No evidence for pulmonary embolus Laboratory Results 09/22/20 11:20: Sodium 133 L, Potassium 4.7, Chloride 97 L, Carbon Dioxide 29.0, Anion Gap 7, BUN 21 H, Creatinine 0.80, Estim Creat Clear Calc 76.20, Est GFR (MDRD) Af Amer 94, Est GFR (MDRD) Non-Af 78, BUN/Creatinine Ratio 26.3 H, Glucose 141 H, Calcium 9.1 Inpatient E&M: 73767 Subs Hosp L2
[2020-09-23] MEDS: Lisinopril 10 MG Tablet PO (10:17)
[2020-09-23] MEDS: Enoxaparin 40 MG/0.4 ML Syringe SC ×2 (10:17→20:01)
[2020-09-23] MEDS: dexAMETHasone 4 MG Tablet 6 MG PO (10:17)
--- NOTE | 2020-09-23 11:04 | PN_ITS ---
Patient Problems: Active and Suspected Problems (Last Reviewed 09/14/20 @ 05:[address] Frantz Dupont MD) SARS (severe acute respiratory syndrome) (Acute) COVID-19 (Acute) Subjective: The patient was seen and examined at the bedside this morning. Events from the last 24 hours have been reviewed. The patient is currently afebrile, hemodynamically stable and maintaining appropriate oxygen saturations on 4 L/min via nasal cannula. The patient continues to improve daily from an oxygenation standpoint. She has been compliant with the use of her incentive spirometer. Objective: The patient's most recent lab work, culture data and imaging studies have all been personally reviewed. Coronavirus PCR was positive on September 13. - Physical Exam Vitals/I&O's: Vital Signs Temp Pulse Resp BP Pulse Ox 97.8 F 95 20 H 148/76 H 88 09/23/20 08:39 09/23/20 08:39 09/23/20 08:39 09/23/20 08:39 09/23/20 09:55 Oxygen Flow Rate (L/min) [ 8 AMBULATION with Oxygen] Oxygen Flow Rate (L/min) 4 Oxygen Delivery Method Nasal Cannula Weight: 248 lb 7.375 oz Body Mass Index (BMI) 36.6 Intake and Output for Last 24 Hours 09/21/20 09/22/20 09/23/20 23:59 23:59 23:59 Intake Total 600 / 600 1240 / 1240 150 / 150 Output Total 1000 / 1000 Balance -400 / -400 1240 / 1240 150 / 150 General: Alert, Oriented x3, Cooperative, No apparent distress HEENT: Atraumatic, PERRLA, Normocephalic Oral: No Gingival or Mucosal Lesions/ Ulcerations Neck: Supple, No Nodes, Trachea Midline Lungs: No rhonchi, No wheeze, No rales, Diminished, - - No conversational dyspnea or accessory muscle use. Cardiovascular: Regular rate, Regular Rhythm, Normal S1, Normal S2, No murmurs Abdomen: Bowel Sounds Present, Soft, Non Tender, Obese Extremities: No clubbing, No cyanosis, No edema Skin: No breakdown Musculoskeletal: No Tenderness to Palpation of Joints or Extremities Lymphatic: No Cervical, Supraclavicular, or Inguinal Adenopathy Neurological: Cranial nerves II-XII grossly intact, Neuro grossly intact Psych/Mental Status: Alert and oriented to time, place, person, mood and affect Labs (Last 48 Hours) 09/22/20 11:20 Sodium 133 L Potassium 4.7 Chloride 97 L Carbon Dioxide 29.0 Anion Gap 7 BUN 21 H Creatinine 0.80 Estim Creat Clear Calc 76.20 Est GFR (MDRD) Af Amer 94 Est GFR (MDRD) Non-Af 78 BUN/Creatinine Ratio 26.3 H Glucose 141 H Calcium 9.1 Clinical Impression(s) from Imaging Studies Chest X-Ray 09/13/20 20:30 IMPRESSION: Findings suspicious for Covid 19 pneumonia. Clinical correlation recommended Electronically Signed: Abner Xie MD at 20:54 EST , Service support , Chest CTA 09/13/20 20:52 IMPRESSION: Diffuse bilateral mixed interstitial and alveolar infiltrates within the upper and lower lobes bilaterally. Covid 19 pneumonia not excluded. No evidence for pulmonary embolus Electronically Signed: Abner Xie MD at 22:06 EST , Service support , Current Medications Acetaminophen (Acetaminophen 325 Mg Tablet) 650 mg PO Q6H PRN PRN PRN Reason: Pain Score 1-10/Temp > 100.7 F Last Admin: 09/14/20 22:38 Dose: 650 mg Documented by: Albuterol Sulfate (Albuterol Ih 8.5 Gm (Proair) Inhaler (200 Puffs)) 2 puff INHALATION Q4H PRN PRN PRN Reason: sob/wheezing Last Admin: 09/16/20 04:26 Dose: 2 puff Documented by: Dexamethasone (Dexamethasone 4 Mg Tablet) 6 mg PO DAILY [facility] Last Admin: 09/23/20 10:47 Dose: Not Given Documented by: Enoxaparin Sodium (Enoxaparin 40 Mg/0.4 Ml Syringe) 40 mg SC BID [facility] Last Admin: 09/23/20 10:17 Dose: 40 mg Documented by: Guaifenesin (Guaifenesin 10 Ml Udc (200mg/10ml)) 10 ml PO Q4H PRN PRN PRN Reason: COUGH Last Admin: 09/22/20 22:37 Dose: 10 ml Documented by: Sodium Chloride () 250 mls @ 15 mls/hr IV .[id number] PRN PRN Reason: Saline Flush Last Infusion: 09/18/20 19:34 Dose: Infused Documented by: Sodium Chloride () 250 mls @ 15 mls/hr IV .[id number] PRN PRN Reason: Additional IVPB Infusion Lisinopril (Lisinopril 10 Mg Tablet) 10 mg PO DAILY [facility] Last Admin: 09/23/20 10:17 Dose: 10 mg Documented by: Melatonin (Melatonin 3 Mg Tablet) 3 mg PO QHS PRN PRN PRN Reason: INSOMNIA Ondansetron HCl (Ondansetron 4 Mg/2 Ml Vial) 4 mg IV Q8H PRN PRN PRN Reason: NAUSEA/VOMITING Polyethylene Glycol (Polyethylene Glycol 3350 17 Gm Packet) 17 gm PO DAILY [facility] Last Admin: 09/23/20 10:47 Dose: Not Given Documented by: Senna/Docusate Sodium (Senna/Docusate Sodium 1 Tablet) 2 tablet PO BID PRN PRN Reason: constipation Sodium Chloride (0.9% Saline Lock 10 Ml Syringe) 10 - 40 ml IV UD PRN PRN Reason: SALINE FLUSH Last Admin: 09/21/20 08:57 Dose: 10 ml Documented by: Sodium Chloride (Sodium Chloride 0.65% 1 [place].Btl) 2 spray NASAL TID PRN PRN PRN Reason: NASAL DRYNESS Last Admin: 09/23/20 05:40 Dose: 2 spray Documented by: Medical Necessity - Tobacco Use Smoking Status: Never smoker Assessment/Plan All Active Problems (Last Reviewed 09/14/20 @ 05:[address] Frantz Dupont MD) SARS (severe acute respiratory syndrome) (Acute) COVID-19 (Acute) RECOMMENDATIONS: 1. Continue with Decadron and Lovenox. 2. Wean supplemental oxygen to maintain saturations at or above 90%. 3. Encourage incentive spirometer use and mobilize patient as tolerated. 4. Continue diuretic therapy as tolerated by hemodynamics and renal function. IMPRESSIONS: 1. Acute hypoxic respiratory failure secondary to COVID-19 pneumonia The patient received convalescent plasma and has completed a treatment course of remdesivir. She will be continued on Decadron 6 mg daily to complete a 10-day treatment course. Continue Lovenox therapy as ordered as well. Continue daily diuretic therapy as tolerated by hemodynamics and renal function. Continue to wean supplemental oxygen to maintain saturations at or above 90%. Encourage incentive spirometer use and mobilize patient as tolerated. 2. Asthma/advanced age/obesity/multiple allergies Complicates care, management, recovery and prognosis. Continue home medications as indicated. This note was generated with [employer] dictation software. It may contain incorrect words, spelling, and punctuation that were not noted in checking the note before signing. Inpatient E&M: 48725 Subs Hosp L2
--- NOTE | 2020-09-23 13:40 | CASEMGMT ---
RN CM Note: Spoke at length with patient regarding home oxygen. Patient very detailed oriented and does not remember previous conversations with case management. Discussed self pay for [employer]. \*
--- NOTE | 2020-09-23 13:47 | CASEMGMT ---
Addendum entered by Maxwell Clemente 09/23/20 14:00: Dr. Galindo updated re: patient having 13 steps into her home and her current oxygen desaturation with activity. No dc planned yet. Pedro MICHELE Original Note: YAKELIN TAYLOR Note: Spoke at great length with patient regarding home oxygen. Patient very detailed oriented and does not remember previous conversations with case management. Discussed self pay for [employer], set up and portability on discharge. Patient states she does not have insurance and discussed cost of [employer] oxygen is approximately $148.00/month. Patient states she does not have electric in the room where she normally sits, but has power cord and will contact upholstery estimator on discharge to fix this. -patient is agreeable for home oxygen. Currently she needs 8L NC for walking recovery. -discussed ride home. Patient states she has a friend whose daughter has agreed to take the patient home in her van. Pedro NOWAK
[2020-09-23] MEDS: Polyethylene Glycol 3350 17 GM PACKET PO (14:53)
[2020-09-23] MEDS: 0.9% Saline Lock 10 ML Syringe IV (14:54)
[2020-09-23] MEDS: Furosemide 40 MG/4 ML Vial IV (14:54)
--- NOTE | 2020-09-23 16:30 | PCM.PN.ID ---
Patient Problems: Active and Suspected Problems (Last Reviewed 09/14/20 @ 05:[address] Frantz Dupont MD) SARS (severe acute respiratory syndrome) (Acute) COVID-19 (Acute) Subjective: Feeling much better, no fever, breathing improved - Physical Exam Vitals/I&O's: Vital Signs Temp Pulse Resp BP Pulse Ox 97.8 F 94 20 H 148/76 H 94 09/23/20 08:39 09/23/20 15:15 09/23/20 08:39 09/23/20 08:39 09/23/20 12:35 Oxygen Flow Rate (L/min) [ 8 AMBULATION with Oxygen] Oxygen Flow Rate (L/min) 5 Oxygen Delivery Method Nasal Cannula Weight: 112.7 kg Body Mass Index (BMI) 36.6 Intake and Output for Last 24 Hours 09/21/20 09/22/20 09/23/20 23:59 23:59 23:59 Intake Total 600 / 600 1240 / 1240 150 / 150 Output Total 1000 / 1000 Balance -400 / -400 1240 / 1240 150 / 150 General: Alert, Cooperative, No apparent distress Lungs: Clear to auscultation, Diminished Cardiovascular: Regular rate, Regular Rhythm Abdomen: Soft, Non Tender, Non-Distended Skin: No rashes Current Medications Acetaminophen (Acetaminophen 325 Mg Tablet) 650 mg PO Q6H PRN PRN PRN Reason: Pain Score 1-10/Temp > 100.7 F Last Admin: 09/14/20 22:38 Dose: 650 mg Documented by: Albuterol Sulfate (Albuterol Ih 8.5 Gm (Proair) Inhaler (200 Puffs)) 2 puff INHALATION Q4H PRN PRN PRN Reason: sob/wheezing Last Admin: 09/16/20 04:26 Dose: 2 puff Documented by: Dexamethasone (Dexamethasone 4 Mg Tablet) 6 mg PO DAILY [facility] Last Admin: 09/23/20 10:47 Dose: Not Given Documented by: Enoxaparin Sodium (Enoxaparin 40 Mg/0.4 Ml Syringe) 40 mg SC BID [facility] Last Admin: 09/23/20 10:17 Dose: 40 mg Documented by: Guaifenesin (Guaifenesin 10 Ml Udc (200mg/10ml)) 10 ml PO Q4H PRN PRN PRN Reason: COUGH Last Admin: 09/22/20 22:37 Dose: 10 ml Documented by: Sodium Chloride () 250 mls @ 15 mls/hr IV .[id number] PRN PRN Reason: Saline Flush Last Infusion: 09/18/20 19:34 Dose: Infused Documented by: Sodium Chloride () 250 mls @ 15 mls/hr IV .[id number] PRN PRN Reason: Additional IVPB Infusion Lisinopril (Lisinopril 10 Mg Tablet) 10 mg PO DAILY [facility] Last Admin: 09/23/20 10:17 Dose: 10 mg Documented by: Melatonin (Melatonin 3 Mg Tablet) 3 mg PO QHS PRN PRN PRN Reason: INSOMNIA Ondansetron HCl (Ondansetron 4 Mg/2 Ml Vial) 4 mg IV Q8H PRN PRN PRN Reason: NAUSEA/VOMITING Polyethylene Glycol (Polyethylene Glycol 3350 17 Gm Packet) 17 gm PO DAILY [facility] Last Admin: 09/23/20 14:53 Dose: 17 gm Documented by: Senna/Docusate Sodium (Senna/Docusate Sodium 1 Tablet) 2 tablet PO BID PRN PRN Reason: constipation Sodium Chloride (0.9% Saline Lock 10 Ml Syringe) 10 - 40 ml IV UD PRN PRN Reason: SALINE FLUSH Last Admin: 09/23/20 14:54 Dose: 10 ml Documented by: Sodium Chloride (Sodium Chloride 0.65% 1 [place].Btl) 2 spray NASAL TID PRN PRN PRN Reason: NASAL DRYNESS Last Admin: 09/23/20 05:40 Dose: 2 spray Documented by: Medical Necessity - Tobacco Use Smoking Status: Never smoker Route of nutrition/ use of supplements: [] Nutritional Intake: [] IV Site: [] Massey Catheter: [] - Assessment/Plan Antibiotics: [] Assessment/Plan: [] Active and Suspected Problems (Last Reviewed 09/14/20 @ 05:[address] Frantz Dupont MD) SARS (severe acute respiratory syndrome) (Acute) COVID-19 (Acute) covid with hypoxia - on dex, lovenox 30mg bid. On nasal cannula today. Completed remdesivir. Got plasma 09/15/20. Overall much improved. Ok for discharge home once O2 is stable to complete 10 days total of dex. Will follow as needed
[2020-09-23] MEDS: guaiFENesin 10 ML UDC (200MG/10ML) PO (21:55)
[2020-09-24] VITALS (11 sets, daily range): BP systolic 142–154; BP diastolic 70–94; PULSE 93–112; RESP 16–18; TEMP 36.4–36.6; O2SAT 94–98
[2020-09-24] MEDS: Sodium Chloride 0.65% 1 SPRAY SPRAY.BTL 2 SPRAY NASAL (01:52)
[2020-09-24 07:47] LABS: Absolute Lymphocyte Count 1.82 X10^3/uL (0.83-4.51); Absolute Neutrophil Count 9.7 X10^3/uL (2.0-7.7); Basophil# 0.02 X10^3/uL; Basophil% 0.2 % (0-1); Eosinophil# 0.03 X10^3/uL; Eosinophils% 0.2 % (0-5); Hemoglobin 12.9 g/dL (12.0-15.0); Lymphocyte # 1.82 X10^3/ul (4.0); Lymphocyte % 14.6 % (19-41); Mean Corp Hgb Conc 30.7 g/dL (32-36); Mean Corpuscular Hgb 28.7 pg (27.0-32.0); Mean Corpuscular Volume 93.3 fL (81-99); Mean Platelet Vol. 9.5 fl (6.2-12.0); Monocyte# 0.83 X10^3/uL; Monocyte% 6.7 % (0-10); NRBC Flagged by Analyzer 0 % (0-5); Neutrophil # 9.68 X10^3/uL (2.7-7.7); Neutrophil % 77.6 % (47-70); Platelet Count 521 K/mm3 (150-450); RBC Distribution Width CV 13.2 % (11.6-14.6); RBC Distribution Width SD 45.1 fl (35.1-43.9); White Blood Count 12.5 K/mm3 (4.4-11.0)
[2020-09-24 08:37] LABS: ALB/GLOB Ratio 0.7 RATIO (0.9-2.4); AST(SGOT) 20 U/L (15-37); Alanine Aminotransfer ALT/SGPT 35 U/L (13-56); Alkaline Phosphatase 81 U/L (45-117); Anion Gap 8 (5-15); BUN 17 mg/dL (7-18); Calcium,Total 9.1 mg/dL (8.5-10.1); Chloride 93 mmol/L (98-107); Creatinine, Serum 0.71 mg/dL (0.55-1.02); EST Glomerular Filtration Rate 89 mL/min (>60); Est Glom Filt Rate - Afr Amer 108 mL/min (>60); Estimated Creatinine Clearance 85.86 ml/min; Globulin 4.2 g/dL (2.2-4.2); Glucose 90 mg/dL (74-106); Potassium 4.1 mmol/L (3.5-5.1); Protein, Total 7.2 g/dL (6.4-8.2); Sodium Level 131 mmol/L (136-145)
[2020-09-24] MEDS: dexAMETHasone 4 MG Tablet 6 MG PO (10:12)
[2020-09-24] MEDS: Lisinopril 10 MG Tablet PO (10:14)
[2020-09-24] MEDS: Enoxaparin 40 MG/0.4 ML Syringe SC ×2 (10:14→22:57)
[2020-09-24] MEDS: Polyethylene Glycol 3350 17 GM PACKET PO (10:14)
--- NOTE | 2020-09-24 14:08 | PN_ITS ---
Patient Problems: Active and Suspected Problems (Last Reviewed 09/14/20 @ 05:[address] Frantz Dupont MD) SARS (severe acute respiratory syndrome) (Acute) COVID-19 (Acute) Reason for Visit: Follow-up for acute hypoxic respiratory failure secondary to bilateral COVID-19 pneumonia. Objective: Seen and examined. No fever. Mild occasional cough. On 4 L of oxygen. Physical exam General: Alert, Oriented x3, Cooperative HEENT: Atraumatic, PERRLA, EOMI, Normocephalic Oral: No Gingival or Mucosal Lesions/ Ulcerations Neck: Supple, No JVD, Negative Carotid Bruits Lungs: Air entry diminished in bilateral lung bases. No crepitation/rhonchi Cardiovascular: Regular rate, Regular Rhythm, Normal S1, Normal S2, No murmurs Abdomen: Bowel Sounds Present, Soft, Non Tender, Non-Distended : No renal angle tenderness. No suprapubic tenderness. Extremities: No edema, Capillary Refill Less than 3 Seconds Skin: No rashes, No breakdown Musculoskeletal: No Tenderness to Palpation of Joints or Extremities Neurological: Cranial nerves II-XII grossly intact, Deep Tendon Reflexes 2+/4 and Symmetrical, Neuro grossly intact Psych/Mental Status: Normal Affect, Appropriate. Vitals/I&O's: Vital Signs Temp Pulse Resp BP Pulse Ox 97.8 F 108 H 18 142/70 H 95 09/24/20 10:06 09/24/20 10:06 09/24/20 10:06 09/24/20 10:06 09/24/20 10:06 Oxygen Flow Rate (L/min) [ 8 AMBULATION with Oxygen] Oxygen Flow Rate (L/min) 4 Oxygen Delivery Method Nasal Cannula Weight: 248 lb 7.375 oz Body Mass Index (BMI) 36.6 Intake and Output for Last 24 Hours 09/22/20 09/23/20 09/24/20 23:59 23:59 23:59 Intake Total 1240 / 1240 150 / 400 250 / 250 Output Total 1500 / 1500 Balance 1240 / 1240 -1350 / -1100 250 / 250 Laboratory Results 09/24/20 06:05: Sodium 131 L, Potassium 4.1, Chloride 93 L, Carbon Dioxide 30.0, Anion Gap 8, BUN 17, Creatinine 0.71, Estim Creat Clear Calc 85.86, Est GFR (MDRD) Af Amer 108, Est GFR (MDRD) Non-Af 89, BUN/Creatinine Ratio 24.0 H, Glucose 90, Calcium 9.1, Total Bilirubin 0.50, AST 20, ALT 35, Alkaline Phosphatase 81, Total Protein 7.2, Albumin 3.0 L, Globulin 4.2, Albumin/Globulin Ratio 0.7 L 09/24/20 06:05: WBC 12.5 H, RBC 4.50, Hgb 12.9, Hct 42.0, MCV 93.3, MCH 28.7, MCHC 30.7 L, RDW Std Deviation 45.1 H, RDW Coeff of Cara 13.2, Plt Count 521 H, MPV 9.5, Immature Gran % (Auto) 0.700, Neut % (Auto) 77.6 H, Lymph % (Auto) 14.6 L, [place] % (Auto) 6.7, Eos % (Auto) 0.2, Baso % (Auto) 0.2, Absolute Neuts (auto) 9.7 H, Absolute Lymphs (auto) 1.82, Nucleated RBC % 0 Current Medications Acetaminophen (Acetaminophen 325 Mg Tablet) 650 mg PO Q6H PRN PRN PRN Reason: Pain Score 1-10/Temp > 100.7 F Last Admin: 09/14/20 22:38 Dose: 650 mg Documented by: Albuterol Sulfate (Albuterol Ih 8.5 Gm (Proair) Inhaler (200 Puffs)) 2 puff INHALATION Q4H PRN PRN PRN Reason: sob/wheezing Last Admin: 09/16/20 04:26 Dose: 2 puff Documented by: Dexamethasone (Dexamethasone 4 Mg Tablet) 6 mg PO DAILY [facility] Last Admin: 09/24/20 10:12 Dose: 6 mg Documented by: Enoxaparin Sodium (Enoxaparin 40 Mg/0.4 Ml Syringe) 40 mg SC BID [facility] Last Admin: 09/24/20 10:14 Dose: 40 mg Documented by: Guaifenesin (Guaifenesin 10 Ml Udc (200mg/10ml)) 10 ml PO Q4H PRN PRN PRN Reason: COUGH Last Admin: 09/23/20 21:55 Dose: 10 ml Documented by: Sodium Chloride () 250 mls @ 15 mls/hr IV .[id number] PRN PRN Reason: Saline Flush Last Infusion: 09/18/20 19:34 Dose: Infused Documented by: Sodium Chloride () 250 mls @ 15 mls/hr IV .[id number] PRN PRN Reason: Additional IVPB Infusion Lisinopril (Lisinopril 10 Mg Tablet) 10 mg PO DAILY [facility] Last Admin: 09/24/20 10:14 Dose: 10 mg Documented by: Melatonin (Melatonin 3 Mg Tablet) 3 mg PO QHS PRN PRN PRN Reason: INSOMNIA Ondansetron HCl (Ondansetron 4 Mg/2 Ml Vial) 4 mg IV Q8H PRN PRN PRN Reason: NAUSEA/VOMITING Polyethylene Glycol (Polyethylene Glycol 3350 17 Gm Packet) 17 gm PO DAILY [facility] Last Admin: 09/24/20 10:14 Dose: 17 gm Documented by: Senna/Docusate Sodium (Senna/Docusate Sodium 1 Tablet) 2 tablet PO BID PRN PRN Reason: constipation Sodium Chloride (0.9% Saline Lock 10 Ml Syringe) 10 - 40 ml IV UD PRN PRN Reason: SALINE FLUSH Last Admin: 09/23/20 14:54 Dose: 10 ml Documented by: Sodium Chloride (Sodium Chloride 0.65% 1 [place].Btl) 2 spray NASAL TID PRN PRN PRN Reason: NASAL DRYNESS Last Admin: 09/24/20 01:52 Dose: 2 spray Documented by: Medical Necessity - Tobacco Use Smoking Status: Never smoker Assessment/Plan All Active Problems (Last Reviewed 09/14/20 @ 05:[address] Frantz Dupont MD) SARS (severe acute respiratory syndrome) (Acute) COVID-19 (Acute) This is a 60-year-old female admitted with acute hypoxic respiratory failure secondary to COVID-19 pneumonia 1. Acute hypoxic respiratory failure secondary to COVID-19 pneumonia: Blood culture negative for 5 days. Patient still has leukocytosis 16.5 thousand. Platelet count 471,000. Albumin 2.3. -CTA of her chest was negative for PEs. Continue Decadron. No need for antibiotic -Continue with Decadron -Appreciate pulmonology and ID follow-up. -Completed remdesivir, and she received convalescent plasma on 08/15/202009/20: On high flow AIR VO. Titrate oxygen to keep pulse ox 92%. On Decadron. Leukocytosis 14,000, ALC 2.0 thousand 09/21: On high flow oxygen and AIR VO. On Decadron. Still has leukocytosis, not much difference from yesterday. 09/22: On 8 L of oxygen. Hemodynamically blood pressure and heart rate are controlled. No fever. 09/23: On 5 L of oxygen. Overall respiratory status is improved. Pulse ox 88% at rest on room air and 82% ambulating on room air 90% ambulating on 8 L of oxygen 09/24: On 5 L of oxygen. Mild hyponatremia and hypochloremia secondary to IV Lasix. K4.1. Leukocytosis 12.5 thousand. Continue incentive spirometry and pep. 2. HTN -Blood pressure stable, continue with lisinopril DVT: Lovenox Clinical Impression(s) from Imaging Studies Chest X-Ray 09/13/20 20:30 IMPRESSION: Findings suspicious for Covid 19 pneumonia. Clinical correlation recommended Chest CTA 09/13/20 20:52 IMPRESSION: Diffuse bilateral mixed interstitial and alveolar infiltrates within the upper and lower lobes bilaterally. Covid 19 pneumonia not excluded. No evidence for pulmonary embolus Laboratory Results 09/24/20 06:05: Sodium 131 L, Potassium 4.1, Chloride 93 L, Carbon Dioxide 30.0, Anion Gap 8, BUN 17, Creatinine 0.71, Estim Creat Clear Calc 85.86, Est GFR (MDRD) Af Amer 108, Est GFR (MDRD) Non-Af 89, BUN/Creatinine Ratio 24.0 H, Glucose 90, Calcium 9.1, Total Bilirubin 0.50, AST 20, ALT 35, Alkaline Phosphatase 81, Total Protein 7.2, Albumin 3.0 L, Globulin 4.2, Albumin/Globulin Ratio 0.7 L 09/24/20 06:05: WBC 12.5 H, RBC 4.50, Hgb 12.9, Hct 42.0, MCV 93.3, MCH 28.7, MCHC 30.7 L, RDW Std Deviation 45.1 H, RDW Coeff of Cara 13.2, Plt Count 521 H, MPV 9.5, Immature Gran % (Auto) 0.700, Neut % (Auto) 77.6 H, Lymph % (Auto) 14.6 L, [place] % (Auto) 6.7, Eos % (Auto) 0.2, Baso % (Auto) 0.2, Absolute Neuts (auto) 9.7 H, Absolute Lymphs (auto) 1.82, Nucleated RBC % 0 Laboratory Results 09/22/20 11:20: Sodium 133 L, Potassium 4.7, Chloride 97 L, Carbon Dioxide 29.0, Anion Gap 7, BUN 21 H, Creatinine 0.80, Estim Creat Clear Calc 76.20, Est GFR (MDRD) Af Amer 94, Est GFR (MDRD) Non-Af 78, BUN/Creatinine Ratio 26.3 H, Glucose 141 H, Calcium 9.1 Inpatient E&M: 62616 Subs Hosp L2
[2020-09-24] MEDS: guaiFENesin 10 ML UDC (200MG/10ML) PO (23:02)
[2020-09-25] VITALS (9 sets, daily range): BP systolic 130–155; BP diastolic 80–88; PULSE 96–140; RESP 16–19; TEMP 36.2–36.8; O2SAT 95–98
[2020-09-25 07:34] LABS: ALB/GLOB Ratio 0.8 RATIO (0.9-2.4); AST(SGOT) 16 U/L (15-37); Alanine Aminotransfer ALT/SGPT 42 U/L (13-56); Albumin, Serum 3.2 g/dL (3.2-5.0); Alkaline Phosphatase 85 U/L (45-117); Anion Gap 7 (5-15); BUN 16 mg/dL (7-18); BUN/Creat Ratio 23.6 RATIO (10-20); Calcium,Total 9.4 mg/dL (8.5-10.1); Chloride 94 mmol/L (98-107); Creatinine, Serum 0.68 mg/dL (0.55-1.02); EST Glomerular Filtration Rate 93 mL/min (>60); Est Glom Filt Rate - Afr Amer 113 mL/min (>60); Estimated Creatinine Clearance 89.65 ml/min; Glucose 88 mg/dL (74-106); Potassium 3.9 mmol/L (3.5-5.1); Protein, Total 7.2 g/dL (6.4-8.2); Sodium Level 131 mmol/L (136-145)
[2020-09-25] MEDS: Polyethylene Glycol 3350 17 GM PACKET PO (08:50)
[2020-09-25] MEDS: dexAMETHasone 4 MG Tablet 6 MG PO (08:51)
[2020-09-25] MEDS: Enoxaparin 40 MG/0.4 ML Syringe SC ×2 (08:51→22:03)
[2020-09-25] MEDS: Lisinopril 10 MG Tablet PO (08:51)
--- NOTE | 2020-09-25 11:55 | PN_ITS ---
Patient Problems: Active and Suspected Problems (Last Reviewed 09/14/20 @ 05:[address] Frantz Dupont MD) SARS (severe acute respiratory syndrome) (Acute) COVID-19 (Acute) Reason for Visit: Follow-up for acute hypoxic respiratory secondary to bilateral COVID-19 pneumonia. Objective: Seen and examined. Patient does not have fever or chills. Mild hypoxia. No chest congestion or chest tightness. Physical exam General: Alert, Oriented x3, Cooperative HEENT: Atraumatic, PERRLA, EOMI, Normocephalic Oral: No Gingival or Mucosal Lesions/ Ulcerations Neck: Supple, No JVD, Negative Carotid Bruits Lungs: Air entry diminished in bilateral lung bases. No crepitation/rhonchi. Cardiovascular: Regular rate, Regular Rhythm, Normal S1, Normal S2, No murmurs Abdomen: Bowel Sounds Present, Soft, Non Tender, Non-Distended : No renal angle tenderness. No suprapubic tenderness. Extremities: No edema, Capillary Refill Less than 3 Seconds Skin: No rashes, No breakdown Musculoskeletal: No Tenderness to Palpation of Joints or Extremities Neurological: Cranial nerves II-XII grossly intact, Deep Tendon Reflexes 2+/4 and Symmetrical, Neuro grossly intact Psych/Mental Status: Normal Affect, Appropriate. Vitals/I&O's: Vital Signs Temp Pulse Resp BP Pulse Ox 98.2 F 105 H 16 155/82 H 95 09/25/20 08:37 09/25/20 08:37 09/25/20 08:37 09/25/20 08:37 09/25/20 08:37 Oxygen Flow Rate (L/min) [ 8 AMBULATION with Oxygen] Oxygen Flow Rate (L/min) 3 Oxygen Delivery Method Nasal Cannula Weight: 248 lb 7.375 oz Body Mass Index (BMI) 36.6 Intake and Output for Last 24 Hours 09/23/20 09/24/20 09/25/20 23:59 23:59 23:59 Intake Total 150 / 400 250 / 750 900 / 900 Output Total 1500 / 1500 Balance -1350 / -1100 250 / 750 900 / 900 Laboratory Results 09/25/20 06:00: Sodium 131 L, Potassium 3.9, Chloride 94 L, Carbon Dioxide 30.0, Anion Gap 7, BUN 16, Creatinine 0.68, Estim Creat Clear Calc 89.65, Est GFR (MDRD) Af Amer 113, Est GFR (MDRD) Non-Af 93, BUN/Creatinine Ratio 23.6 H, Glucose 88, Calcium 9.4, Total Bilirubin 0.60, AST 16, ALT 42, Alkaline Phosphatase 85, Total Protein 7.2, Albumin 3.2, Globulin 4.0, Albumin/Globulin Ratio 0.8 L Current Medications Acetaminophen (Acetaminophen 325 Mg Tablet) 650 mg PO Q6H PRN PRN PRN Reason: Pain Score 1-10/Temp > 100.7 F Last Admin: 09/14/20 22:38 Dose: 650 mg Documented by: Albuterol Sulfate (Albuterol Ih 8.5 Gm (Proair) Inhaler (200 Puffs)) 2 puff INHALATION Q4H PRN PRN PRN Reason: sob/wheezing Last Admin: 09/16/20 04:26 Dose: 2 puff Documented by: Dexamethasone (Dexamethasone 4 Mg Tablet) 6 mg PO DAILY [facility] Last Admin: 09/25/20 08:51 Dose: 6 mg Documented by: Enoxaparin Sodium (Enoxaparin 40 Mg/0.4 Ml Syringe) 40 mg SC BID [facility] Last Admin: 09/25/20 08:51 Dose: 40 mg Documented by: Guaifenesin (Guaifenesin 10 Ml Udc (200mg/10ml)) 10 ml PO Q4H PRN PRN PRN Reason: COUGH Last Admin: 09/24/20 23:02 Dose: 10 ml Documented by: Sodium Chloride () 250 mls @ 15 mls/hr IV .[id number] PRN PRN Reason: Saline Flush Last Infusion: 09/18/20 19:34 Dose: Infused Documented by: Sodium Chloride () 250 mls @ 15 mls/hr IV .[id number] PRN PRN Reason: Additional IVPB Infusion Lisinopril (Lisinopril 10 Mg Tablet) 10 mg PO DAILY [facility] Last Admin: 09/25/20 08:51 Dose: 10 mg Documented by: Melatonin (Melatonin 3 Mg Tablet) 3 mg PO QHS PRN PRN PRN Reason: INSOMNIA Ondansetron HCl (Ondansetron 4 Mg/2 Ml Vial) 4 mg IV Q8H PRN PRN PRN Reason: NAUSEA/VOMITING Polyethylene Glycol (Polyethylene Glycol 3350 17 Gm Packet) 17 gm PO DAILY [facility] Last Admin: 09/25/20 08:50 Dose: 17 gm Documented by: Senna/Docusate Sodium (Senna/Docusate Sodium 1 Tablet) 2 tablet PO BID PRN PRN Reason: constipation Sodium Chloride (0.9% Saline Lock 10 Ml Syringe) 10 - 40 ml IV UD PRN PRN Reason: SALINE FLUSH Last Admin: 09/23/20 14:54 Dose: 10 ml Documented by: Sodium Chloride (Sodium Chloride 0.65% 1 [place].Btl) 2 spray NASAL TID PRN PRN PRN Reason: NASAL DRYNESS Last Admin: 09/24/20 01:52 Dose: 2 spray Documented by: STROKE Vital Signs/Narrative: Vital Signs Temp Pulse Resp BP Pulse Ox 09/25/20 08:37 98.2 F 105 H 16 155/82 H 95 09/25/20 08:02 95 09/25/20 08:00 115 H Medical Necessity - Tobacco Use Smoking Status: Never smoker Assessment/Plan All Active Problems (Last Reviewed 09/14/20 @ 05:[address] Frantz Dupont MD) SARS (severe acute respiratory syndrome) (Acute) COVID-19 (Acute) This is a 60-year-old female admitted with acute hypoxic respiratory failure secondary to COVID-19 pneumonia 1. Acute hypoxic respiratory failure secondary to COVID-19 pneumonia: Blood culture negative for 5 days. Patient still has leukocytosis 16.5 thousand. Platelet count 471,000. Albumin 2.3. -CTA of her chest was negative for PEs. Continue Decadron. No need for antibiotic -Continue with Decadron -Appreciate pulmonology and ID follow-up. -Completed remdesivir, and she received convalescent plasma on 08/15/202009/20: On high flow AIR VO. Titrate oxygen to keep pulse ox 92%. On Decadron. Leukocytosis 14,000, ALC 2.0 thousand 09/21: On high flow oxygen and AIR VO. On Decadron. Still has leukocytosis, not much difference from yesterday. 09/22: On 8 L of oxygen. Hemodynamically blood pressure and heart rate are controlled. No fever. 09/23: On 5 L of oxygen. Overall respiratory status is improved. Pulse ox 88% at rest on room air and 82% ambulating on room air 90% ambulating on 8 L of oxygen 09/24: On 5 L of oxygen. Mild hyponatremia and hypochloremia secondary to IV Lasix. K4.1. Leukocytosis 12.5 thousand. Continue incentive spirometry and pep. 09/25: On 3 L of oxygen. Mild hyponatremia. Patient was offered discharge on supplemental oxygen but she declined to go home as her home is not clean for several distributions. Anticipate discharge tomorrow a.m. manager public is also consulted. 2. HTN -Blood pressure stable, continue with lisinopril DVT: Lovenox Clinical Impression(s) from Imaging Studies Chest X-Ray 09/13/20 20:30 IMPRESSION: Findings suspicious for Covid 19 pneumonia. Clinical correlation recommended Chest CTA 09/13/20 20:52 IMPRESSION: Diffuse bilateral mixed interstitial and alveolar infiltrates within the upper and lower lobes bilaterally. Covid 19 pneumonia not excluded. No evidence for pulmonary embolus Laboratory Results 09/25/20 06:00: Sodium 131 L, Potassium 3.9, Chloride 94 L, Carbon Dioxide 30.0, Anion Gap 7, BUN 16, Creatinine 0.68, Estim Creat Clear Calc 89.65, Est GFR (MDRD) Af Amer 113, Est GFR (MDRD) Non-Af 93, BUN/Creatinine Ratio 23.6 H, Gl ucose 88, Calcium 9.4, Total Bilirubin 0.60, AST 16, ALT 42, Alkaline Phosphatase 85, Total Protein 7.2, Albumin 3.2, Globulin 4.0, Albumin/Globulin Ratio 0.8 L Laboratory Results 09/24/20 06:05: Sodium 131 L, Potassium 4.1, Chloride 93 L, Carbon Dioxide 30.0, Anion Gap 8, BUN 17, Creatinine 0.71, Estim Creat Clear Calc 85.86, Est GFR (MDRD) Af Amer 108, Est GFR (MDRD) Non-Af 89, BUN/Creatinine Ratio 24.0 H, Glucose 90, Calcium 9.1, Total Bilirubin 0.50, AST 20, ALT 35, Alkaline Phosphatase 81, Total Protein 7.2, Albumin 3.0 L, Globulin 4.2, Albumin/Globulin Ratio 0.7 L 09/24/20 06:05: WBC 12.5 H, RBC 4.50, Hgb 12.9, Hct 42.0, MCV 93.3, MCH 28.7, MCHC 30.7 L, RDW Std Deviation 45.1 H, RDW Coeff of Cara 13.2, Plt Count 521 H, MPV 9.5, Immature Gran % (Auto) 0.700, Neut % (Auto) 77.6 H, Lymph % (Auto) 14.6 L, [place] % (Auto) 6.7, Eos % (Auto) 0.2, Baso % (Auto) 0.2, Absolute Neuts (auto) 9.7 H, Absolute Lymphs (auto) 1.82, Nucleated RBC % 0 Laboratory Results 09/22/20 11:20: Sodium 133 L, Potassium 4.7, Chloride 97 L, Carbon Dioxide 29.0, Anion Gap 7, BUN 21 H, Creatinine 0.80, Estim Creat Clear Calc 76.20, Est GFR (MDRD) Af Amer 94, Est GFR (MDRD) Non-Af 78, BUN/Creatinine Ratio 26.3 H, Glucose 141 H, Calcium 9.1 Inpatient E&M: 28731 Subs Hosp L2
--- NOTE | 2020-09-25 14:27 | NURSING ---
pt refused bp d/t nervousness
[2020-09-25] MEDS: MELATONIN 3 MG TABLET PO (22:04)
[2020-09-25] MEDS: guaiFENesin 10 ML UDC (200MG/10ML) PO (22:04)
[2020-09-26] VITALS (7 sets, daily range): BP systolic 145–173; BP diastolic 78–88; PULSE 95–114; RESP 18; TEMP 36.3–36.4; O2SAT 92–99
[2020-09-26 06:00] LABS: Absolute Lymphocyte Count 2.79 X10^3/uL (0.83-4.51); Absolute Neutrophil Count 12.2 X10^3/uL (2.0-7.7); Basophil# 0.03 X10^3/uL; Basophil% 0.2 % (0-1); Eosinophil# 0.08 X10^3/uL; Eosinophils% 0.5 % (0-5); Hematocrit 41.6 % (37-47); Lymphocyte # 2.79 X10^3/ul (4.0); Mean Corp Hgb Conc 31.3 g/dL (32-36); Mean Corpuscular Hgb 28.8 pg (27.0-32.0); Mean Platelet Vol. 9.2 fl (6.2-12.0); Monocyte# 1.14 X10^3/uL; NRBC Flagged by Analyzer 0 % (0-5); Neutrophil # 12.22 X10^3/uL (2.7-7.7); Neutrophil % 74.4 % (47-70); Platelet Count 519 K/mm3 (150-450); RBC Distribution Width CV 13.2 % (11.6-14.6); RBC Distribution Width SD 44.9 fl (35.1-43.9); Red Blood Count 4.52 M/mm3 (4.2-5.4); White Blood Count 16.4 K/mm3 (4.4-11.0)
[2020-09-26 06:32] LABS: ALB/GLOB Ratio 0.8 RATIO (0.9-2.4); AST(SGOT) 15 U/L (15-37); Alanine Aminotransfer ALT/SGPT 49 U/L (13-56); Albumin, Serum 3.3 g/dL (3.2-5.0); Alkaline Phosphatase 87 U/L (45-117); Anion Gap 6 (5-15); BUN 22 mg/dL (7-18); BUN/Creat Ratio 27.9 RATIO (10-20); Calcium,Total 9.5 mg/dL (8.5-10.1); Chloride 94 mmol/L (98-107); Creatinine, Serum 0.79 mg/dL (0.55-1.02); EST Glomerular Filtration Rate 78 mL/min (>60); Est Glom Filt Rate - Afr Amer 95 mL/min (>60); Estimated Creatinine Clearance 77.16 ml/min; Globulin 4.2 g/dL (2.2-4.2); Glucose 109 mg/dL (74-106); Potassium 4.1 mmol/L (3.5-5.1); Protein, Total 7.5 g/dL (6.4-8.2); Sodium Level 129 mmol/L (136-145)
--- NOTE | 2020-09-26 07:23 | PCM.DC ---
- Discharge Diagnoses Current Active Problems: Current Active and Chronic Problems (Last Reviewed 09/14/20 @ 05:[address] Frantz Dupont MD) SARS (severe acute respiratory syndrome) (Acute) COVID-19 (Acute) Asthma (Chronic) You will use the following diet at home:: Cardiac Your food should be the consistency of: Regular Discharge Activity: May Not Drive - for 1 week Call your doctor if you observe: Fever of 101 or Higher, Coldness, Increased Pain, Numbness or Tingling, Change in Color, Inability to urinate, Inability to have a bowel movement, Using more than one pad per hour, Shortness of breath, Dizziness, Fainting spells, Swelling in the ankles, Chest pain, Prolonged hiccoughing, Increased palpitations (irregular heartbeat), Calf discomfort, Uncontrolled pain Additional Instructions: self isolation for 1 more week until 10/02/2020 Allergies/Adverse Reactions: Allergies neomycin Allergy (Verified 09/13/20 19:36) Swelling shellfish derived Allergy (Verified 09/13/20 19:36) Anaphylaxis Sulfa (Sulfonamide Antibiotics) Allergy (Verified 09/13/20 19:36) Anaphylaxis tetracycline [From Sumycin] Allergy (Verified 09/13/20 19:36) Swelling iodine Adverse Reaction (Verified 09/13/20 19:36) Other BLISTERS mycin Allergy (Uncoded 09/13/20 19:36) Anaphylaxis Medications to take at Discharge Lisinopril [Prinivil] 10 mg PO DAILY 09/13/20 Guaifenesin [Mucinex] 1,200 mg PO BID #10 tab.er.12h 09/26/20 The following prescriptions were given: Guaifenesin [Mucinex] 1,200 mg PO BID #10 tab.er.12h Transmission Status: Pending to [id number] Primary Care Physician: Shruthi Castañeda MD [Primary Care Provider] - Please follow up with your Primary Care Physician in: in 1-2 weeks Test Results: Test results from this visit will be discussed in further detail at your follow-up appointment, if applicable.
--- NOTE | 2020-09-26 07:24 | PCM.DC.SUM ---
Discharge Date and Diagnosis - Problem List Patient Problems: Active and Suspected Problems (Last Reviewed 09/14/20 @ 05:[address] Frantz Dupont MD) SARS (severe acute respiratory syndrome) (Acute) COVID-19 (Acute) Date of Admission: 09/14/20 Date of Discharge: 09/26/20 - Primary Discharge Diagnosis Acute Problems: Active Problems (Last Reviewed 09/14/20 @ 05:[address] Frantz Dupont MD) SARS (severe acute respiratory syndrome) (Acute) COVID-19 (Acute) Acute hypoxic respiratory failure secondary to COVID-19 pneumonia - Secondary Discharge Diagnosis Chronic Problems: Chronic Problems (Last Reviewed 09/14/20 @ 05:[address] Frantz Dupont MD) Asthma (Chronic) Hospital Course and Treatment Summary of Care Provided: [] This is a 60-year-old female admitted with acute hypoxic respiratory failure secondary to COVID-19 pneumonia 1. Acute hypoxic respiratory failure secondary to COVID-19 pneumonia: Blood culture negative for 5 days. Patient still has leukocytosis 16.5 thousand. Platelet count 471,000. Albumin 2.3. -CTA of her chest was negative for PEs. No need for antibiotic. Patient was continued on Decadron. Patient completed remdesivir and received convalescent plasma on 08/15/2020. Initially patient was on AIR VO and required high oxygen but gradually hypoxia resolved. Currently on room air. 2. HTN -Blood pressure stable, continue with lisinopril DVT: Lovenox Patient is discharged on Mucinex, Eliquis 2.5 mg p.o. twice daily as DVT prophylactic dose for 2 more weeks. Discharge medication reconciliation done. Discharge follow-up instructions completed. Discharge process discussed with the patient and all questions were answered to patient's satisfaction. Total time spent, exact 35 minutes on discharge meds reconciliation, examination, coordination of care with nurses and ancillary staff, review of imaging and blood test and discussion with the patient on follow-up instructions Patient Problems: Active and Suspected Problems (Last Reviewed 09/14/20 @ 05:[address] Frantz Dupont MD) SARS (severe acute respiratory syndrome) (Acute) COVID-19 (Acute) Subjective: Patient afebrile. Pulse ox 93% on room air. Not tachypneic. The patient is having flight of ideas and she talks irrelevant moving quickly to from 1 subject to another. Denies any history of bipolar, depression or family history of bipolar or schizophrenia. Does not seem withdrawal from reality. Physical exam General: Alert, Oriented x3, Cooperative HEENT: Atraumatic, PERRLA, EOMI, Normocephalic Oral: No Gingival or Mucosal Lesions/ Ulcerations Neck: Supple, No JVD, Negative Carotid Bruits Lungs: Air entry diminished in bilateral lung bases. No crepitation/rhonchi. Hypoxia resolved Cardiovascular: Regular rate, Regular Rhythm, Normal S1, Normal S2, No murmurs Abdomen: Bowel Sounds Present, Soft, Non Tender, Non-Distended : No renal angle tenderness. No suprapubic tenderness. Extremities: No edema, Capillary Refill Less than 3 Seconds Skin: No rashes, No breakdown Musculoskeletal: No Tenderness to Palpation of Joints or Extremities Neurological: Cranial nerves II-XII grossly intact, Deep Tendon Reflexes 2+/4 and Symmetrical, Neuro grossly intact Psych/Mental Status: She is talkative, flight of ideas. - Physical Exam Vitals/I&O's: Vital Signs Temp Pulse Resp BP Pulse Ox 97.5 F L 114 H 18 166/88 H 99 09/26/20 04:36 09/26/20 04:36 09/26/20 04:36 09/26/20 04:36 09/26/20 04:36 Oxygen Flow Rate (L/min) [ 8 AMBULATION with Oxygen] Oxygen Flow Rate (L/min) 1 Oxygen Delivery Method Nasal Cannula Weight: 248 lb 7.375 oz Body Mass Index (BMI) 36.6 Intake and Output for Last 24 Hours 09/24/20 09/25/20 09/26/20 23:59 23:59 23:59 Intake Total 250 / 750 900 / 900 700 / 700 Balance 250 / 750 900 / 900 700 / 700 Laboratory Results 09/25/20 06:00: Sodium 131 L, Potassium 3.9, Chloride 94 L, Carbon Dioxide 30.0, Anion Gap 7, BUN 16, Creatinine 0.68, Estim Creat Clear Calc 89.65, Est GFR (MDRD) Af Amer 113, Est GFR (MDRD) Non-Af 93, BUN/Creatinine Ratio 23.6 H, Glucose 88, Calcium 9.4, Total Bilirubin 0.60, AST 16, ALT 42, Alkaline Phosphatase 85, Total Protein 7.2, Albumin 3.2, Globulin 4.0, Albumin/Globulin Ratio 0.8 L 09/26/20 05:10: Sodium 129 L, Potassium 4.1, Chloride 94 L, Carbon Dioxide 29.0, Anion Gap 6, BUN 22 H, Creatinine 0.79, Estim Creat Clear Calc 77.16, Est GFR (MDRD) Af Amer 95, Est GFR (MDRD) Non-Af 78, BUN/Creatinine Ratio 27.9 H, Glucose 109 H, Calcium 9.5, Total Bilirubin 0.60, AST 15, ALT 49, Alkaline Phosphatase 87, Total Protein 7.5, Albumin 3.3, Globulin 4.2, Albumin/Globulin Ratio 0.8 L 09/26/20 05:10: WBC 16.4 H, RBC 4.52, Hgb 13.0, Hct 41.6, MCV 92.0, MCH 28.8, MCHC 31.3 L, RDW Std Deviation 44.9 H, RDW Coeff of Cara 13.2, Plt Count 519 H, MPV 9.2, Immature Gran % (Auto) 0.900, Neut % (Auto) 74.4 H, Lymph % (Auto) 17.0 L, [place] % (Auto) 7.0, Eos % (Auto) 0.5, Baso % (Auto) 0.2, Absolute Neuts (auto) 12.2 H, Absolute Lymphs (auto) 2.79, Nucleated RBC % 0 Current Medications Acetaminophen (Acetaminophen 325 Mg Tablet) 650 mg PO Q6H PRN PRN PRN Reason: Pain Score 1-10/Temp > 100.7 F Last Admin: 09/14/20 22:38 Dose: 650 mg Documented by: Albuterol Sulfate (Albuterol Ih 8.5 Gm (Proair) Inhaler (200 Puffs)) 2 puff INHALATION Q4H PRN PRN PRN Reason: sob/wheezing Last Admin: 09/16/20 04:26 Dose: 2 puff Documented by: Dexamethasone (Dexamethasone 4 Mg Tablet) 6 mg PO DAILY [facility] Last Admin: 09/25/20 08:51 Dose: 6 mg Documented by: Enoxaparin Sodium (Enoxaparin 40 Mg/0.4 Ml Syringe) 40 mg SC BID [facility] Last Admin: 09/25/20 22:03 Dose: 40 mg Documented by: Guaifenesin (Guaifenesin 10 Ml Udc (200mg/10ml)) 10 ml PO Q4H PRN PRN PRN Reason: COUGH Last Admin: 09/25/20 22:04 Dose: 10 ml Documented by: Sodium Chloride () 250 mls @ 15 mls/hr IV .[id number] PRN PRN Reason: Saline Flush Last Infusion: 09/18/20 19:34 Dose: Infused Documented by: Sodium Chloride () 250 mls @ 15 mls/hr IV .[id number] PRN PRN Reason: Additional IVPB Infusion Lisinopril (Lisinopril 10 Mg Tablet) 10 mg PO DAILY [facility] Last Admin: 09/25/20 08:51 Dose: 10 mg Documented by: Melatonin (Melatonin 3 Mg Tablet) 3 mg PO QHS PRN PRN PRN Reason: INSOMNIA Last Admin: 09/25/20 22:04 Dose: 3 mg Documented by: Ondansetron HCl (Ondansetron 4 Mg/2 Ml Vial) 4 mg IV Q8H PRN PRN PRN Reason: NAUSEA/VOMITING Polyethylene Glycol (Polyethylene Glycol 3350 17 Gm Packet) 17 gm PO DAILY [facility] Last Admin: 09/25/20 08:50 Dose: 17 gm Documented by: Senna/Docusate Sodium (Senna/Docusate Sodium 1 Tablet) 2 tablet PO BID PRN PRN Reason: constipation Sodium Chloride (0.9% Saline Lock 10 Ml Syringe) 10 - 40 ml IV UD PRN PRN Reason: SALINE FLUSH Last Admin: 09/23/20 14:54 Dose: 10 ml Documented by: Sodium Chloride (Sodium Chloride 0.65% 1 Bronson Bronson.Btl) 2 spray NASAL TID PRN PRN PRN Reason: NASAL DRYNESS Last Admin: 09/24/20 01:52 Dose: 2 spray Documented by: Home Medications: Medications to take at Discharge Lisinopril [Prinivil] 10 mg PO DAILY 09/13/20 Apixaban [Eliquis] 2.5 mg PO BID #30 tab 09/26/20 Guaifenesin [Mucinex] 1,200 mg PO BID #10 tab.er.12h 09/26/20 Following Prescriptions Were Given to Patient: Apixaban [Eliquis] 2.5 mg PO BID #30 tab Transmission Status: Pending to [facility] Guaifenesin [Mucinex] 1,200 mg PO BID #10 tab.er.12h Transmission Status: Pending to [facility] Primary Care Physician: Shruthi Castañeda MD [Primary Care Provider] - Medical Necessity - Tobacco Use Smoking Status: Never smoker Meaningful Use Info Meaningful Use Diagnoses (Choose all that apply): None applicable Inpatient E&M: 90163 Disch Hosp Multi Select Codes - Visit Charges Visit Charges: 98451 Disch Hosp
[2020-09-26] MEDS: Lisinopril 10 MG Tablet PO (08:19)
[2020-09-26] MEDS: Polyethylene Glycol 3350 17 GM PACKET PO (08:19)
[2020-09-26] MEDS: Enoxaparin 40 MG/0.4 ML Syringe SC (08:19)
[2020-09-26] MEDS: dexAMETHasone 4 MG Tablet 6 MG PO (08:20)
--- NOTE | 2020-09-26 09:23 | CASEMGMT ---
YAKELIN CM NOTE: Patient to discharge today. No home oxygen is needed. F/U appointment made for a virtual visit with Dr. Castañeda's DIRECTOR INSTITUTION on Saturday. Pedro GOODMAN RN ACM
--- NOTE | 2020-09-26 12:18 | CASEMGMT ---
Social Work PATRICIA spoke with pt nurse YAKELIN Roman who states pt is displaying euphoria, facundo, flight of ideas and delusions of grandeur. Jessie also reports that she did speak with to pt regarding suicide/homicide ideation and pt denies either. Pt with no listed mental health history. Physician aware and as pt is not suicidal/homicidal follow up can be done as outpt. Pt does live alone with limited support. PATRICIA placed call to Kamryn at Crisis and referral made. Pt friend will be transporting her home today around noon. Crisis plans to place a phone call between [phone] to pt at home to complete an assessment and well check. Dr. Galindo updated and agreeable to this. RN updated as well. GIGI Hemphill
== END 2020-09-26 11:57 | disposition home or self-care (01) | DRG 177 ==
LOC: ED 21:53 → MS2 23:30
PROVIDERS: Family Medicine; Internal Medicine Critical Care Medicine; Internal Medicine Infectious Disease; Admitting Provider Hospitalist; Emergency Provider Emergency Medicine; PCP Internal Medicine; Referring Provider Hospitalist; Visit Provider Internal Medicine
DX: U07.1 COVID-19 (principal); J12.89 Other viral pneumonia; J96.01 Acute respiratory failure with hypoxia; D47.3 Essential (hemorrhagic) thrombocythemia; E87.6 Hypokalemia; J45.21 Mild intermittent asthma with (acute) exacerbation; E87.1 Hypo-osmolality and hyponatremia; E87.8 Other disorders of electrolyte and fluid balance, not elsewhere classified; T50.1X5A Adverse effect of loop [high-ceiling] diuretics, initial encounter; Y92.239 Unspecified place in hospital as the place of occurrence of the external cause; I10 Essential (primary) hypertension; E66.9 Obesity, unspecified; Z68.36 Body mass index [BMI] 36.0-36.9, adult; Z79.899 Other long term (current) drug therapy
CPT/HCPCS: 36415; 36600; 71045; 71275; 80048; 80053; 82803; 83605; 83615; 83735; 83880; 84145; 84484; 85025; 85027; 85379; 86900; 86901; 87040; 87633; 87635; 94002; 94003; 94660; 94667; 94668; 99285; J7050; Q9967; A4216; J1940; U0002

== ENCOUNTER 2020-10-03 18:03 | Emergency (ER) | payer MEDICAID, SELFPAY ==
[2020-09-14 00:53] VITALS: BMI 36.6
[2020-10-03 18:09] VITALS: BP 158/89; PULSE 110; RESP 17; TEMP 36.7; O2SAT 99; BMI 34.6
--- NOTE | 2020-10-03 18:34 | EKG12_ITS ---
Test Reason : MENTAL HEALTH Blood Pressure : / mmHG Vent. Rate : 101 BPM Atrial Rate : 101 BPM P-R Int : 152 ms QRS Dur : 088 ms QT Int : 370 ms P-R-T Axes : 064 035 005 degrees QTc Int : 479 ms Sinus tachycardia Otherwise normal ECG Confirmed by PREMA CURRAN, SEBASTIAN ([id number]), managing editor ANAIS SINGLETARY ([id number]) on 10/05/2020 9:40:16 AM Referred By: MACRINA Confirmed By:SEBASTIAN LLOYD MD
--- NOTE | 2020-10-03 18:34 | CT_ITS ---
STUDY: CT BRAIN WITHOUT CONTRAST REASON FOR EXAM: Female, 60 years old. PT CONFUSED, RAMBLING, COUGHING DURING EXAM, COVID 3 WEEKS AGO, HERE FOR RASH ON LEG, MENTAL HEALTH EVALUATION RADIATION DOSAGE (If Supplied By Facility): CTDIvol = ( 44.99 ) mGy, DLP = ( 863.60 ) mGycm TECHNIQUE: Transaxial CT imaging of the brain was performed without administration of intravenous contrast material. Individualized dose optimization techniques were used for this CT. COMPARISON: Head CT dated January 19, 2019 FINDINGS: Normal soft tissue structures. Normal calvarium. There is mild cerebral atrophy with widening of the extra-axial spaces and ventricular dilatation. Normal white matter tracts of the cerebral hemispheres. Normal basal ganglia and thalami. Normal brainstem. Normal cerebellum. There is no intracranial hemorrhage. There are no findings of an acute ischemic infarction. Normal visualized paranasal sinuses. CT/Brain/Head without Contrast IMPRESSION: Chronic involutional changes of the brain. Electronically Signed: Jimmy Zambrano MD at 20:16 EST , Service support ,
--- NOTE | 2020-10-03 18:51 | ED.RN ---
FRIEND AT BEDSIDE. PT BIZARRE, RAMBLING ON. STATS THAT SHE HAD COVID WHICH FRIEND STATES IS TRUE. PT CONTINUES TO RAMBLE ON ABOUT THIS CARD SYSTEM SHE HAS DEVELOPED SO IF SHE NEEDS TO INVOKE HER 5TH AMENDMENT RIGHTS TO NOT SPEAK SHE CAN JUST HOLD THESE CARDS UP. THIS RN IS VERY CONFUSED BY THE PT. PT AMBULATES TO RESTROOM. THIS RN SPOKE WITH FRIEND WHILE PT IN RESTROOM, FRIEND STATES THAT SHE WAS NOT LIKE THIS PRIOR TO COVID. STATES PT WAS OPINIONATED AND EXCENTRIC BUT NOT LIKE SHE ACTING NOW.
[2020-10-03 19:59] LABS: Amphetamine Urine VISTA NEGATIVE (<1000 ng/mL); Barbiturate Urine VISTA NEGATIVE (< 200 ng/mL); Benzodiazepine Urine VISTA NEGATIVE (< 200 ng/mL); Cocaine Urine VISTA NEGATIVE (< 300 ng/mL); Ecstacy Urine VISTA NEGATIVE (< 500 ng/mL); Methadone Urine VISTA NEGATIVE (< 300 ng/mL); PCP Urine VISTA NEGATIVE (< 25 ng/mL); THC Urine VISTA NEGATIVE (< 50 ng/mL); Vista UDS pH Range 5
[2020-10-03 20:18] LABS: Absolute Lymphocyte Count 1.07 X10^3/uL (0.83-4.51); Absolute Neutrophil Count 4.5 X10^3/uL (2.0-7.7); Basophil# 0.02 X10^3/uL; Basophil% 0.3 % (0-1); Eosinophil# 0.24 X10^3/uL; Eosinophils% 3.7 % (0-5); Hematocrit 35.7 % (37-47); Hemoglobin 11.7 g/dL (12.0-15.0); Lymphocyte # 1.07 X10^3/ul (4.0); Lymphocyte % 16.6 % (19-41); Mean Corp Hgb Conc 32.8 g/dL (32-36); Mean Corpuscular Hgb 30.2 pg (27.0-32.0); Mean Corpuscular Volume 92.2 fL (81-99); Mean Platelet Vol. 8.8 fl (6.2-12.0); Monocyte# 0.59 X10^3/uL; Monocyte% 9.2 % (0-10); NRBC Flagged by Analyzer 0 % (0-5); Neutrophil % 69.9 % (47-70); Platelet Count 276 K/mm3 (150-450); RBC Distribution Width SD 46.4 fl (35.1-43.9); Red Blood Count 3.87 M/mm3 (4.2-5.4); White Blood Count 6.4 K/mm3 (4.4-11.0)
[2020-10-03 20:32] LABS: Anion Gap 8 (5-15); BUN 12 mg/dL (7-18); BUN/Creat Ratio 14.6 RATIO (10-20); Calcium,Total 8.9 mg/dL (8.5-10.1); Chloride 102 mmol/L (98-107); Creatinine, Serum 0.82 mg/dL (0.55-1.02); EST Glomerular Filtration Rate 75 mL/min (>60); Est Glom Filt Rate - Afr Amer 91 mL/min (>60); Estimated Creatinine Clearance 74.34 ml/min; Glucose 132 mg/dL (74-106); Potassium 3.3 mmol/L (3.5-5.1); Sodium Level 134 mmol/L (136-145)
[2020-10-03 21:00] LABS: Alcohol, Blood (Medical)-Serum < 3.0 mg/dL
--- NOTE | 2020-10-03 21:08 | ED.VISSUMM ---
- ER Visit Summary Date of Service: 10/03/20 Chief Complaint: Manic History of Present Illness: The patient is a [address] Breen. She had Covid 3 weeks ago. She reports that this was diagnosed September 05. She has been home for the past 2 weeks, but family and the patient admits that she is manic. She denies any suicidal homicidal ideation. She denies any auditory visual hallucinations. She does complain of generalized weakness. Physical Examination: Vitals: Stable. Afebrile. General: Well-nourished and well-developed. Head: Normocephalic atraumatic. Neck: Supple, no lymphadenopathy. No JVD. Nontender. Cardiovascular: Regular rate and rhythm. No murmurs. Respiratory: No respiratory distress. Clear to auscultation bilaterally. Abdominal: Soft, nontender, nondistended, normal bowel sounds. No guarding, rebound, or peritoneal signs. Back: Nontender. Extremities: Nontender, no edema. Skin: Normal color, no rash. Neurologic: Alert and oriented ?3. Cranial nerves II through XII are intact. Normal strength and sensation. Mental status exam: Patient appears their stated age. Good posture and grooming. Good eye contact. Increased rate with decreased latency of speech. She has obvious flight of ideas and delusions. No suicidal or homicidal ideation. No auditory or visual hallucinations. Flow of thought is logical. Insight and judgment is fair. Test Results: EKG sinus tach at [address] changes. CBC shows an H&H 11.7 35.7. Chem-7 shows a sodium 134, potassium 3.3, glucose 132. UA shows nitrites, 25-50 white blood cells, and 4+ bacteria. TSH is normal. Tox urine is negative. Alcohol is negative. CT brain shows no acute disease. Emergency Department Course and Treatment: Patient was given a dose of Keflex p.o. for her UTI. She is medically cleared. She was discussed with her primary care physician as well as with a family friend who is a physician. She is not capable of caring for herself at this time. Treatment Plan: Patient was discussed with the counseling center. They are in the process of getting her placed in a psychiatric facility. Disposition: Pending Impression: 1. Alina. 2. Paranoia. 3. UTI. This note was generated with Dragon dictation software. It may contain incorrect words, spelling, and punctuation that were not noted in review of the chart prior to signing ED Disposition - Plan for ED Patient: Referrals: [facility] [Other]
[2020-10-03 21:20] LABS: Color, Urine Yellow (Yellow); Glucose, Dipstick Normal (Normal); Ketone-Dipstick 50 mg/dl (Negative); Leukocyte Esterase-Dipstick 500 /ul (Negative); Mucous, Urine 0 SEEN /hpf (<or=2+); Nitrite-Dipstick Positive (Negative); Occult Blood-Urine 10 /ul (Negative); Protein-Dipstick Negative (Negative); Specific Gravity, Urine 1.015 (1.002-1.030); Squamous Epithelial Cells - UA 0 SEEN /hpf (5-10); Urine Bilirubin Dipstick Negative (Negative); Urine Clarity Sl. Cloudy (Clear); Urine Urobilinogen Normal (Normal)
[2020-10-03 21:23] VITALS: BP 151/76; PULSE 101; RESP 18; TEMP 36.3; O2SAT 97
[2020-10-03 21:27] LABS: Bacteria 4+ /hpf (None Seen); Red Blood Cells-Urine 0-5 SEEN /hpf (0-5); White Blood Cells 25-50 SEEN /hpf (0-5)
[2020-10-03] MEDS: Cephalexin 250 MG Capsule 500 MG PO (21:48)
--- NOTE | 2020-10-03 23:53 | ED.RN ---
Soledad from crisis called and spoke with patient and cousin. Is making referral for inpatient hospitalization.
[2020-10-04] VITALS (12 sets, daily range): BP systolic 143–180; BP diastolic 71–88; PULSE 100–111; RESP 14–20; TEMP 37; O2SAT 92–99
--- NOTE | 2020-10-04 03:09 | ED.RN ---
pt very anxious . requesting to speak to her to dale. then called .
[2020-10-04 03:12] LABS: AST(SGOT) 31 U/L (15-37); Alanine Aminotransfer ALT/SGPT 60 U/L (13-56); Albumin, Serum 3.3 g/dL (3.2-5.0); Alkaline Phosphatase 103 U/L (45-117); Bilirubin, Direct 0.16 mg/dL (0.00-0.30); Globulin 3.8 g/dL (2.2-4.2); Protein, Total 7.1 g/dL (6.4-8.2)
--- NOTE | 2020-10-04 10:09 | CM.ED ---
Addendum entered by Shobha Livingston 10/04/20 11:59: Gale from crisis confirms that patient is on waiting list at [facility]. Original Note: Social Work Per charge nurse, patient waiting on [facility]. Kallie MARQUEZ, LUKASZ
--- NOTE | 2020-10-04 14:04 | ED.RN ---
PT REQUESTING TO TALK WITH ER SO SHE CAN STOP THIS PROCESS IMMEDIATELY. PT STILL HAS A FLIGHT OF IDEAS AND NOT ABLE TO REDIRECT PT. PT HAS MULTIPLE NOTES SHE HAS WRITTEN AND IS EATING VERY LITTLE. PHYSICIAN MADE AWARE.
--- NOTE | 2020-10-04 14:33 | ED.DCSUM_ITS ---
- ER Visit Summary Date of Service: 10/04/20 Chief Complaint: [Addendum to initial dictation by Dr. Angelo Chaudhari] History of Present Illness: The patient is a 60 F [presented to the emergency department with psychosis. Patient also being treated for urinary tract infection. Care of patient turned over to me in the morning by the evening physician who took over for Dr. Chaudhari. Patient awaiting placement to psychiatric facility. Patient asked to speak with me several times. I did go in to evaluate the patient and she continues to have significant flight of ideas and incoherent speech. Patient continues to be quite paranoid. It was difficult to ascertain why patient wanted to speak to me. The primary physician that saw her initially did speak with patient's primary care physician and family friend who is a physician and both had concerns about patient ability to be on her own and her safety.] Physical Examination: [HEENT-PERRLA, EOMI. Cranial nerves II through XII grossly intact. TMs clear. Mucous membranes moist. No adenopathy. Cardiovascular-regular rate and rhythm without murmur or ectopy Lungs-clear to auscultation, chest wall stable without crepitus or subcu emphysema Abdomen-normoactive bowel sounds, soft, nontender, no rebound or rigidity, no peritoneal signs. Extremities-intact ?4, normal range of motion, normal pulses, atraumatic. Patient has faint erythematous rash involving the upper and lower extremities.] Test Results: [] Emergency Department Course and Treatment: [] Treatment Plan: [Patient will require hospitalization and transfer to psychiatri c facility for further treatment and stabilization.] Disposition: [Pending evaluation by crisis and acceptance to psychiatric facility] Impression: [Psychosis] This note was generated with [employer] dictation software. It may contain incorrect words, spelling, and punctuation that were not noted in review of the chart prior to signing ED Disposition - Plan for ED Patient: Referrals: [facility] [Other]
[2020-10-04] MEDS: Cephalexin 250 MG Capsule 500 MG PO ×2 (16:09→21:22)
--- NOTE | 2020-10-04 18:02 | CM.ED ---
Social Work Telephone call from [facility]. Patient has been declined currently due to doctor at [facility] reporting that patient is not medically cleared and that patient symptoms could be a result of patient UTI. [facility] doctor is recommending for patient to be monitored for another 48hours and if symptoms persist then to consult [facility]. Dr. Ross and medical team updated. Kallie Livingston MSW, LUKASZ
--- NOTE | 2020-10-04 18:46 | ED.VISSUMM ---
- ER Visit Summary This patient has been signed out through several physicians while attempting to place the patient to a psychiatric facility. Plan was transfer to [facility]. The physician at [facility] is concerned that her acute facundo and psychosis could be attributable to her UTI. I disagree with this assessment. Patient does not appear to be delirious. [facility] is requesting 48 hours of antibiotics prior to accepting the patient. They refuse to accept the patient until this has been done. I did add on a urine culture. I spoke to the hospitalist. They do not believe the patient meets criteria for hospitalization and the patient will need to be boarded in the emergency department. This note was generated with [employer] dictation software. It may contain incorrect words, spelling, and punctuation that were not noted in review of the chart prior to signing ED Disposition - Plan for ED Patient: Referrals: [facility] [Other]
[2020-10-04] MEDS: guaiFENesin 1,200 MG Tablet 1200 MG PO (21:17)
[2020-10-04] MEDS: APIXABAN 2.5 MG TABLET PO (21:18)
[2020-10-04] MEDS: Lisinopril 10 MG Tablet PO (21:18)
[2020-10-04] MEDS: Montelukast 10 MG Tablet PO (21:18)
[2020-10-04] MEDS: LORazepam 1 MG Tablet PO (23:23)
[2020-10-05 01:00] VITALS: BP 175/81; PULSE 104; RESP 18; O2SAT 98
[2020-10-05 03:33] VITALS: RESP 15
[2020-10-05 05:20] VITALS: RESP 16
[2020-10-05 07:11] VITALS: BP 123/83; PULSE 114; RESP 20; O2SAT 95
--- NOTE | 2020-10-05 10:49 | CM.ED ---
Social Work Emergency Department Spoke with Karon from Crisis at [facility]. Updated to [facility] response and unwillingness to accept patient for 48 hours due to concern that symptoms are a result of a UTI. Karon is aware and reports to actually have a call into [facility] already today. Let Karon know that patient remains in the Emergency Department. -LUKASZ Lind, FORM DESIGNER
--- NOTE | 2020-10-05 13:47 | ED.RN ---
THIS NURSE CONTACTED [facility] DIRECTLY TO REQUEST A TELEPHONE CONVERSATION BETWEEN THE [facility] DOCTOR AND DR SCHRADER. INTAKE AT [facility] SUPPOSED TO HAVE THE MANAGER RADIATION CALL DR SCHRADER
--- NOTE | 2020-10-05 14:05 | NS ---
Dietitian consulted d/t reported food allergies. Pt is well known to this RDN from recent [facility] inpatient admission from 09/13-09/26/20. At that time, her only documented food allergy was shellfish. During her previous admission, pt was very concerned with eating foods that will cure her COVID and heal her gut. This RDN spent a significant amount of time attempting to marriage counselor minister the patient and explained to her that there is no evidenced-based diet to follow to cure COVID. It was recommended to the pt that she follow a nutrient dense diet w/ adequate protein and a variety of fruits and vegetables. Pt was not overly receptive to RDN information. Of note, pt was accepting of [facility] during her acute hospital stay. Pt now pending placement to psychiatric facility. She has provided a list of foods she will and will not eat to nursing staff. It is suspected that these foods are not true allergens and that food restrictions are r/t mental health. Nonetheless, will instruct kitchen staff not to include milk, milk byproducts, chocolate, yogurt, nothing not gentle on esophagus, ice, bread, crackers, toast, from the grill menu items, tomatoes (except tomato soup), grapes, oranges per pt list. Will continue to list shellfish as an allergen in EMR. Pt states she will consume the following: apple juice, cranberry juice, baked potato w/ butter, broccoli, green beans, predator control trapper salad (no peppers, cheese or croutons), grilled chicken caesar salad, tilapia, hard boiled eggs, coleslaw, celery sticks w/ peanut butter, banana, apple sauce, peaches, pears, fruit cup, egg salad, tuna salad, chicken salad, patino, chicken noodle, beef broth, chicken broth, potato soup, jello. Pt would like hot water w/ honey every meal. Food preferences given to kitchen staff. Pt may be agreeable to [facility] again- can be ordered by nursing staff w/ meals if appropriate. Of note, pt w/ 14# wt loss since 09/13/20 admission. Please call clinical RDN at [phone] w/ further questions. Jovanna Walls MS, RDN, LD
--- NOTE | 2020-10-05 14:56 | NURSING ---
CALLED CRISIS TO ARRANGE TRANSPORT TO [facility]
--- NOTE | 2020-10-05 15:08 | NURSING ---
[facility] ETA 15 MIN
[2020-10-05] MEDS: Cephalexin 250 MG Capsule 500 MG PO (15:18)
[2020-10-05] MEDS: guaiFENesin 1,200 MG Tablet 1200 MG PO (15:35)
[2020-10-05] MEDS: APIXABAN 2.5 MG TABLET PO (15:36)
[2020-10-05 15:57] VITALS: BP 159/79; PULSE 103; RESP 17; O2SAT 99
== END 2020-10-05 15:59 | disposition home or self-care (01) ==
PROVIDERS: Emergency Medicine; Emergency Provider Emergency Medicine
DX: F22 Delusional disorders (principal); F30.9 Manic episode, unspecified; N39.0 Urinary tract infection, site not specified; R53.1 Weakness; I10 Essential (primary) hypertension; Z79.01 Long term (current) use of anticoagulants; Z79.899 Other long term (current) drug therapy; Z86.19 Personal history of other infectious and parasitic diseases
CPT/HCPCS: 70450; 80048; 80076; 80307; 80320; 81001; 84443; 85025; 87086; 87088; 87186; 87426; 87635; 93005; 99285; A4216; G0480; U0002

== ENCOUNTER 2021-11-17 12:57 | Outpatient (CLI) | payer MEDICAID, SELFPAY ==
[2021-11-17 13:17] VITALS: BP 152/88; PULSE 69; RESP 18; TEMP 36.3; O2SAT 100; BMI 34.1
[2021-11-17] MEDS: 0.9% Saline Lock 10 ML Syringe IV (13:26)
[2021-11-17 13:57] VITALS: BP 160/85; PULSE 65; RESP 14; TEMP 36.6; O2SAT 100
[2021-11-17 14:56] VITALS: BP 177/89; PULSE 56; RESP 16; TEMP 36.4; O2SAT 100
== END 2021-11-17 23:59 | disposition home or self-care (01) ==
LOC: MS3OUT 12:57 → MS3 13:00
PROVIDERS: Visit Provider Nurse Practitioner Adult Health
DX: Z23 Encounter for immunization (principal); U07.1 COVID-19
CPT/HCPCS: J7050; M0245; Q0245; A4216